=== PATIENT | male | born 1955 | race Caucasian/White ===

== ENCOUNTER 2022-10-14 18:36 | Inpatient (IN) | payer MEDICARE, MEDICAID ==
[~2022-10-14] VITALS: Ht 177.8 cm; Wt 87.5 kg
[2022-10-14] MEDS ORDERED: PANTOPRAZOLE SODIUM 40 MG/VIAL IVP ONE (19:00)
[2022-10-14] MEDS ORDERED: IOHEXOL 350 MG/ML 100 ML VIAL ONE (19:10)
[2022-10-14] MEDS ORDERED: SODIUM CHLORIDE 0.9% 100 ML ONE (19:10)
[2022-10-14] MEDS ORDERED: MAG HYDROX/AL HYDROX/SIMETH 30 ML SUSP UDCUP PO ONE (19:15)
[2022-10-14] MEDS ORDERED: FAMOTIDINE 20 MG/2 ML VIAL IVP ONE (19:15)
[2022-10-14] MEDS ORDERED: PANTOPRAZOLE SODIUM 80 MG in SODIUM CHLORIDE 0.9% 100 ML IV SCH (19:15)
[2022-10-14 19:16] LABS: GLUCOMETER DEV NAME(LOC) ER.6; GLUCOSE,POINT OF CARE 91 MG/DL (70-110)
[2022-10-14 19:43] LABS: BASOPHILS % (AUTO) 0.6 % (0.0-2.0); EOSINOPHILS % (AUTO) 3.6 % (1.0-6.0); HEMATOCRIT 37.4 % (41-53); HEMOGLOBIN 12.7 g/dL (13.5-17.5); LYMPHOCYTES # (AUTO) 1.8 K/uL (1.0-4.8); LYMPHOCYTES % (AUTO) 25.8 % (22.0-44.0); MEAN CORPUSCULAR HEMOGLOBIN 31.8 pg (26.0-34.0); MEAN CORPUSCULAR HGB CONC 33.8 G/dL (31.0-37.0); MEAN CORPUSCULAR VOLUME 94 fL (80-100); MONOCYTES # (AUTO) 0.5 K/uL (0.1-1.0); MONOCYTES % (AUTO) 7.2 % (2.0-9.0); NEUTROPHILS # (AUTO) 4.4 K/uL (1.8-7.7); NEUTROPHILS % (AUTO) 62.8 % (40.0-70.0); PLATELET COUNT (AUTO) 281 K/uL (150-450); RED BLOOD CELL COUNT(AUTO) 3.98 MIL/uL (4.50-5.90); RED CELL DISTRIBUTION WIDTH 15.4 % (11.5-14.5); WHITE BLOOD COUNT (AUTO) 6.9 K/uL (4.5-11.0)
[2022-10-14 19:56] LABS: PROTHROMBIN TIME 10.3 SEC (9.4-11.6)
[2022-10-14 19:57] LABS: ALCOHOL, BLOOD (SERUM) < 3 mg/dL (0-10); B-TYPE NATRIURETIC PEPTIDE 303 pg/mL (0-100)
[2022-10-14 20:02] LABS: ANION GAP 8 mmol/L (8-16); CALCIUM, TOTAL 8.5 mg/dL (8.8-10.5); CARBON DIOXIDE 28 mmol/L (22-29); CHLORIDE 104 mmol/L (98-107); CREATININE 1.11 mg/dL (0.60-1.30); GLOMERULAR FILTR. RATE CALC > 60 mL/min (>60); GLUCOSE,RANDOM 82 mg/dL (70-110); POTASSIUM 4.5 mmol/L (3.5-5.1); SODIUM SERUM 139 mmol/L (136-145); UREA NITROGEN, BLOOD 27 mg/dL (7-18)
[2022-10-14 20:08] LABS: ALANINE AMINOTRANSFERASE 18 U/L (12-78); ALBUMIN 3.1 g/dL (3.4-5.0); ALKALINE PHOSPHATASE 114 U/L (46-116); ASPARTATE AMINOTRANSFERASE 22 U/L (15-37); BILIRUBIN,TOTAL 0.5 mg/dL (0.1-1.0); CREATINE KINASE, TOTAL ONLY 70 U/L (39-308); TOTAL PROTEIN, SERUM 5.8 g/dL (6.4-8.2)
[2022-10-14 20:09] LABS: TROPONIN I-HIGH SENSITIVITY 13 ng/L (<76)
[2022-10-14] MEDS ORDERED: GABA-1201 PO (20:58)
[2022-10-14] MEDS: RINGERS SOLUTION,LACTATED 1,000 ML IV SCH (22:19)
[2022-10-14] MEDS ORDERED: ACETAMINOPHEN 325 MG TABLET PO PRN (23:00)
[2022-10-14 23:29] LABS: APPEARANCE,URINE CLEAR (CLEAR); BILIRUBIN,URINE NEGATIVE (NEGATIVE); COLOR,URINE LIGHT YELLOW (YELLOW); GLUCOSE, URINE (UA) NEGATIVE (NEGATIVE); KETONES,URINE NEGATIVE (NEGATIVE); LEUKOCYTE ESTERASE ,URINE NEGATIVE (NEGATIVE); NITRATE,URINE NEGATIVE (NEGATIVE); OCCULT BLOOD,URINE NEGATIVE (NEGATIVE); PROTEIN,URINE 30-70 mg/dL (NEGATIVE)
[2022-10-14 23:35] LABS: ALCOHOL, URINE DRUG SCREEN NEGATIVE (NEGATIVE); AMPHET/METH SCREEN,URINE NEGATIVE (NEGATIVE); BARBITURATE SCREEN, URINE NEGATIVE (NEGATIVE); BENZODIAZEPINES SCREEN,URINE NEGATIVE (NEGATIVE); CANNABINOID SCREEN,URINE POSITIVE (NEGATIVE); COCAINE SCREEN,URINE NEGATIVE (NEGATIVE); METHADONE SCREEN, URINE NEGATIVE (NEGATIVE); OPIATE SCREEN,URINE NEGATIVE (NEGATIVE); PHENCYCLIDINE SCREEN,URINE NEGATIVE (NEGATIVE)
[2022-10-14 23:43] LABS: BACTERIA,URINE Rare /HPF (None Seen); FINE GRANULAR CASTS,URINE 0-2 /LPF (None Seen); RBC,URINE 0-2 /HPF (0-2); SQUAMOUS EPITHELIAL CELL,UR Few /LPF (None Seen)
[2022-10-15] MEDS: GABAPENTIN 400 MG CAPSULE PO SCH ×4 (00:05→23:25)
[2022-10-15] MEDS: LIDOCAINE 5% TRANSDERMAL PATCH TD SCH ×2 (00:06→20:54)
[2022-10-15 00:36] VITALS: BP 155/98; PULSE 62; RESP 20; TEMP 98
[2022-10-15] MEDS: PANTOPRAZOLE SODIUM 80 MG in SODIUM CHLORIDE 0.9% 100 ML IV SCH ×3 (03:12→23:25)
[2022-10-15 06:03] VITALS: BP 142/103; PULSE 63; RESP 18; TEMP 98.1
[2022-10-15 06:28] LABS: BASOPHILS % (AUTO) 0.6 % (0.0-2.0); EOSINOPHILS % (AUTO) 3.7 % (1.0-6.0); HEMATOCRIT 39.1 % (41-53); HEMOGLOBIN 13.2 g/dL (13.5-17.5); LYMPHOCYTES # (AUTO) 1.9 K/uL (1.0-4.8); LYMPHOCYTES % (AUTO) 29.8 % (22.0-44.0); MEAN CORPUSCULAR HEMOGLOBIN 31.9 pg (26.0-34.0); MEAN CORPUSCULAR HGB CONC 33.7 G/dL (31.0-37.0); MEAN CORPUSCULAR VOLUME 95 fL (80-100); MONOCYTES # (AUTO) 0.5 K/uL (0.1-1.0); MONOCYTES % (AUTO) 8.5 % (2.0-9.0); NEUTROPHILS # (AUTO) 3.6 K/uL (1.8-7.7); NEUTROPHILS % (AUTO) 57.4 % (40.0-70.0); PLATELET COUNT (AUTO) 271 K/uL (150-450); RED BLOOD CELL COUNT(AUTO) 4.13 MIL/uL (4.50-5.90); RED CELL DISTRIBUTION WIDTH 15.9 % (11.5-14.5); WHITE BLOOD COUNT (AUTO) 6.3 K/uL (4.5-11.0)
[2022-10-15 06:48] LABS: ANION GAP 7 mmol/L (8-16); CALCIUM, TOTAL 8.8 mg/dL (8.8-10.5); CARBON DIOXIDE 27 mmol/L (22-29); CHLORIDE 105 mmol/L (98-107); CREATININE 1.03 mg/dL (0.60-1.30); GLOMERULAR FILTR. RATE CALC > 60 mL/min (>60); GLUCOSE,RANDOM 84 mg/dL (70-110); LIPASE 38 U/L (16-77); POTASSIUM 4.3 mmol/L (3.5-5.1); SODIUM SERUM 139 mmol/L (136-145); UREA NITROGEN, BLOOD 22 mg/dL (7-18)
[2022-10-15] MEDS ORDERED: IOHEXOL 350 MG/ML 100 ML VIAL ONE (06:51)
[2022-10-15] MEDS ORDERED: SODIUM CHLORIDE 0.9% 100 ML ONE (06:51)
[2022-10-15 07:06] LABS: BASOPHILS % (AUTO) 0.8 % (0.0-2.0); EOSINOPHILS % (AUTO) 3.8 % (1.0-6.0); HEMATOCRIT 38.5 % (41-53); LYMPHOCYTES # (AUTO) 1.6 K/uL (1.0-4.8); LYMPHOCYTES % (AUTO) 29.6 % (22.0-44.0); MEAN CORPUSCULAR HEMOGLOBIN 31.8 pg (26.0-34.0); MEAN CORPUSCULAR HGB CONC 33.7 G/dL (31.0-37.0); MEAN CORPUSCULAR VOLUME 94 fL (80-100); MONOCYTES # (AUTO) 0.4 K/uL (0.1-1.0); MONOCYTES % (AUTO) 7.7 % (2.0-9.0); NEUTROPHILS # (AUTO) 3.2 K/uL (1.8-7.7); NEUTROPHILS % (AUTO) 58.1 % (40.0-70.0); PLATELET COUNT (AUTO) 261 K/uL (150-450); RED BLOOD CELL COUNT(AUTO) 4.08 MIL/uL (4.50-5.90); RED CELL DISTRIBUTION WIDTH 15.5 % (11.5-14.5); WHITE BLOOD COUNT (AUTO) 5.5 K/uL (4.5-11.0)
[2022-10-15 07:11] LABS: ANION GAP 7 mmol/L (8-16); CALCIUM, TOTAL 8.4 mg/dL (8.8-10.5); CARBON DIOXIDE 27 mmol/L (22-29); CHLORIDE 103 mmol/L (98-107); CREATININE 0.95 mg/dL (0.60-1.30); GLOMERULAR FILTR. RATE CALC > 60 mL/min (>60); GLUCOSE,RANDOM 86 mg/dL (70-110); POTASSIUM 4.2 mmol/L (3.5-5.1); SODIUM SERUM 137 mmol/L (136-145); UREA NITROGEN, BLOOD 21 mg/dL (7-18)
[2022-10-15 07:17] LABS: ALANINE AMINOTRANSFERASE 19 U/L (12-78); ALBUMIN 3.1 g/dL (3.4-5.0); ALKALINE PHOSPHATASE 111 U/L (46-116); ASPARTATE AMINOTRANSFERASE 23 U/L (15-37); BILIRUBIN,TOTAL 0.6 mg/dL (0.1-1.0)
[2022-10-15 07:22] LABS: TROPONIN I-HIGH SENSITIVITY 13 ng/L (<76)
[2022-10-15 07:25] LABS: PROTHROMBIN TIME 10.5 SEC (9.4-11.6)
[2022-10-15 08:30] LABS: CHOL/HDL RATIO 2.7 (4.2-7.3); CHOLESTEROL 176 mg/dL (131-200); HDL CHOLESTEROL 66 mg/dL (40-60); HEMOGLOBIN A1C 5.3 % (3.8-5.6); LDL CHOL (CALC.) 97 mg/dL (0-130); TRIGLYCERIDES 65 mg/dL (15-150)
[2022-10-15] MEDS ORDERED: -LIDODERM PATCH NOTE- MISC SCH (09:00)
[2022-10-15 10:57] VITALS: BP 162/103; PULSE 64; RESP 18; TEMP 98
[2022-10-15] MEDS ORDERED: HydrALAZINE HCL 20 MG/ML VIAL IVP PRN (11:15)
[2022-10-15] MEDS ORDERED: HYDROmorphone HCL 2 MG/ML SYRINGE IVP PRN (11:30)
[2022-10-15] MEDS ORDERED: DEXTROSE 5%-0.45% SODIUM CHL 1,000 ML IV SCH (11:30)
[2022-10-15] MEDS ORDERED: SODIUM CHLORIDE 0.9% 1,000 ML ONE (11:58)
[2022-10-15] MEDS ORDERED: LIDOCAINE/PF 2% 5 ML VIAL IM ONE (12:00)
[2022-10-15] MEDS ORDERED: PROPOFOL 1% 20 ML VIAL IVP ONE (12:00)
[2022-10-15 12:26] LABS: GLUCOMETER DEV NAME(LOC) 5N.2C; GLUCOSE,POINT OF CARE 96 MG/DL (70-110)
[2022-10-15] MEDS: RINGERS SOLUTION,LACTATED 1,000 ML IV SCH (15:05)
[2022-10-15 15:09] VITALS: BP 164/98; PULSE 66; RESP 18; TEMP 97.8
[2022-10-15 17:20] LABS: BASOPHILS % (AUTO) 0.7 % (0.0-2.0); EOSINOPHILS % (AUTO) 3.5 % (1.0-6.0); HEMATOCRIT 38.6 % (41-53); HEMOGLOBIN 12.8 g/dL (13.5-17.5); LYMPHOCYTES # (AUTO) 1.3 K/uL (1.0-4.8); LYMPHOCYTES % (AUTO) 24.3 % (22.0-44.0); MEAN CORPUSCULAR HEMOGLOBIN 31.4 pg (26.0-34.0); MEAN CORPUSCULAR HGB CONC 33.1 G/dL (31.0-37.0); MEAN CORPUSCULAR VOLUME 95 fL (80-100); MONOCYTES # (AUTO) 0.4 K/uL (0.1-1.0); MONOCYTES % (AUTO) 6.6 % (2.0-9.0); NEUTROPHILS # (AUTO) 3.6 K/uL (1.8-7.7); NEUTROPHILS % (AUTO) 64.9 % (40.0-70.0); PLATELET COUNT (AUTO) 255 K/uL (150-450); RED BLOOD CELL COUNT(AUTO) 4.06 MIL/uL (4.50-5.90); RED CELL DISTRIBUTION WIDTH 15.4 % (11.5-14.5); WHITE BLOOD COUNT (AUTO) 5.5 K/uL (4.5-11.0)
[2022-10-15 20:11] VITALS: BP 108/68; PULSE 62; RESP 18; TEMP 98.2
[2022-10-15 20:18] LABS: EOSINOPHILS % (AUTO) 2.8 % (1.0-6.0); HEMATOCRIT 35.5 % (41-53); HEMOGLOBIN 11.9 g/dL (13.5-17.5); LYMPHOCYTES # (AUTO) 1.3 K/uL (1.0-4.8); LYMPHOCYTES % (AUTO) 24.7 % (22.0-44.0); MEAN CORPUSCULAR HEMOGLOBIN 31.7 pg (26.0-34.0); MEAN CORPUSCULAR HGB CONC 33.5 G/dL (31.0-37.0); MEAN CORPUSCULAR VOLUME 95 fL (80-100); MONOCYTES # (AUTO) 0.4 K/uL (0.1-1.0); MONOCYTES % (AUTO) 7.7 % (2.0-9.0); NEUTROPHILS # (AUTO) 3.5 K/uL (1.8-7.7); NEUTROPHILS % (AUTO) 63.8 % (40.0-70.0); PLATELET COUNT (AUTO) 245 K/uL (150-450); RED BLOOD CELL COUNT(AUTO) 3.75 MIL/uL (4.50-5.90); RED CELL DISTRIBUTION WIDTH 15.3 % (11.5-14.5); WHITE BLOOD COUNT (AUTO) 5.4 K/uL (4.5-11.0)
[2022-10-15] MEDS ORDERED: LIDOCAINE 5% TRANSDERMAL PATCH TD ONE (22:00)
[2022-10-16] MEDS: RINGERS SOLUTION,LACTATED 1,000 ML IV SCH (00:11)
[2022-10-16 00:13] VITALS: BP 145/76; PULSE 61; RESP 19; TEMP 98.1
[2022-10-16 04:44] VITALS: BP 154/90; PULSE 63; RESP 19; TEMP 97.8
[2022-10-16 07:10] LABS: BASOPHILS % (AUTO) 0.9 % (0.0-2.0); EOSINOPHILS % (AUTO) 3.4 % (1.0-6.0); HEMOGLOBIN 12.8 g/dL (13.5-17.5); LYMPHOCYTES # (AUTO) 1.7 K/uL (1.0-4.8); LYMPHOCYTES % (AUTO) 24.2 % (22.0-44.0); MEAN CORPUSCULAR HEMOGLOBIN 31.1 pg (26.0-34.0); MEAN CORPUSCULAR HGB CONC 32.9 G/dL (31.0-37.0); MEAN CORPUSCULAR VOLUME 95 fL (80-100); MONOCYTES # (AUTO) 0.4 K/uL (0.1-1.0); MONOCYTES % (AUTO) 6.3 % (2.0-9.0); NEUTROPHILS # (AUTO) 4.5 K/uL (1.8-7.7); NEUTROPHILS % (AUTO) 65.2 % (40.0-70.0); RED BLOOD CELL COUNT(AUTO) 4.12 MIL/uL (4.50-5.90); RED CELL DISTRIBUTION WIDTH 15.7 % (11.5-14.5); WHITE BLOOD COUNT (AUTO) 6.9 K/uL (4.5-11.0)
[2022-10-16 08:04] LABS: PLATELET COUNT (AUTO) 230 K/uL (150-450)
[2022-10-16 08:28] VITALS: BP 139/69; PULSE 61; RESP 18; TEMP 97.9
[2022-10-16] MEDS ORDERED: ATORVASTATIN CALCIUM 40 MG TABLET PO SCH (09:45)
[2022-10-16] MEDS ORDERED: ASPIRIN 81 MG CHEWABLE TABLET PO SCH (09:45)
[2022-10-16] MEDS ORDERED: LISI-893 PO (10:00)
[2022-10-16] MEDS ORDERED: CLOP75TA60 PO (10:01)
[2022-10-16] MEDS ORDERED: ASPI-1450 PO (10:01)
[2022-10-16] MEDS ORDERED: FOLI-130 PO (10:02)
[2022-10-16] MEDS ORDERED: FERR-82 PO (10:02)
[2022-10-16] MEDS ORDERED: LEVE500T20 PO (10:03)
== END 2022-10-16 10:20 | disposition home or self-care (01) | DRG 379 ==
LOC: EMS 18:37 → 5S 22:35 → UNDOADMIN 22:35 → 5S 23:10
PROVIDERS: ADMIT Internal Medicine; ATTEND Internal Medicine
PROC: 0DB78ZX Excision of Stomach, Pylorus, Via Natural or Artificial Opening Endoscopic, Diagnostic (ICD-10-PCS; 2022-10-15)
PROC: 0DB68ZX Excision of Stomach, Via Natural or Artificial Opening Endoscopic, Diagnostic (ICD-10-PCS; 2022-10-15)
PROC: 0DB98ZX Excision of Duodenum, Via Natural or Artificial Opening Endoscopic, Diagnostic (ICD-10-PCS; principal; 2022-10-15 12:45)
DX: K29.71 Gastritis, unspecified, with bleeding (principal); K25.4 Chronic or unspecified gastric ulcer with hemorrhage; K28.4 Chronic or unspecified gastrojejunal ulcer with hemorrhage; K29.81 Duodenitis with bleeding; G40.909 Epilepsy, unspecified, not intractable, without status epilepticus; G89.29 Other chronic pain; Z66 Do not resuscitate; F17.210 Nicotine dependence, cigarettes, uncomplicated; M54.2 Cervicalgia; K44.9 Diaphragmatic hernia without obstruction or gangrene; R47.1 Dysarthria and anarthria; I10 Essential (primary) hypertension; Z95.0 Presence of cardiac pacemaker; Z88.5 Allergy status to narcotic agent; Z86.73 Personal history of transient ischemic attack (TIA), and cerebral infarction without residual deficits; Z88.6 Allergy status to analgesic agent; Z90.3 Acquired absence of stomach [part of]; Z98.1 Arthrodesis status; Z79.899 Other long term (current) drug therapy; Z98.84 Bariatric surgery status
CPT/HCPCS: 70496; 70498; 71045; 74177; 80048; 80053; 80061; 80307; 81001; 82271; 82550; 82962; 83036; 83690; 83735; 83880; 84484; 85025; 85610; 85730; 86850; 86900; 86901; 88305; 88312; 88313; 88342; 93005; 93306; 99285; C9113; G0480; J1170; J2704; J3490; J7030; J7050; J7120; Q9967; 36415-L1; 36415-TC; 70450; 70450-TC

== ENCOUNTER 2022-12-16 08:50 | Inpatient (IN) | payer MEDICARE, MEDICAID ==
[~2022-12-16] VITALS: Ht 177.8 cm; Wt 101.4 kg
[~2022-12-16 08:50] MED LIST: ASPI-1444 PO; ATOR-2 PO; CLOP75TA60 PO; FERR-82 PO; FOLI-130 PO; GABA-1201 PO; LEVE500T20 PO; LISI-893 PO; NITR0.4T50 SL; PANT40TA54 PO
[2022-12-16] MEDS ORDERED: FLUORESCEIN SODIUM 1 MG STRIP OS ONE (09:15)
[2022-12-16] MEDS ORDERED: PERTUSS(ACELL),DIPH,TET VAC/PF 0.5 ML SYRINGE IM. ONE (09:15)
[2022-12-16 09:26] LABS: BASOPHILS % (AUTO) 0.6 % (0.0-2.0); EOSINOPHILS % (AUTO) 0.9 % (1.0-6.0); HEMATOCRIT 43.5 % (41-53); HEMOGLOBIN 15.3 g/dL (13.5-17.5); LYMPHOCYTES # (AUTO) 0.9 K/uL (1.0-4.8); LYMPHOCYTES % (AUTO) 13.6 % (22.0-44.0); MEAN CORPUSCULAR HEMOGLOBIN 32.5 pg (26.0-34.0); MEAN CORPUSCULAR HGB CONC 35.2 G/dL (31.0-37.0); MEAN CORPUSCULAR VOLUME 92 fL (80-100); MONOCYTES # (AUTO) 0.3 K/uL (0.1-1.0); NEUTROPHILS # (AUTO) 5.1 K/uL (1.8-7.7); NEUTROPHILS % (AUTO) 79.9 % (40.0-70.0); PLATELET COUNT (AUTO) 276 K/uL (150-450); RED BLOOD CELL COUNT(AUTO) 4.71 MIL/uL (4.50-5.90); RED CELL DISTRIBUTION WIDTH 14.4 % (11.5-14.5); WHITE BLOOD COUNT (AUTO) 6.3 K/uL (4.5-11.0)
[2022-12-16 09:45] LABS: TROPONIN I-HIGH SENSITIVITY 19 ng/L (<76)
[2022-12-16] MEDS ORDERED: PROPARACAINE HCL 0.5% 15 ML OPHTHALMIC SOLUTION OS ONE (09:45)
[2022-12-16 09:48] LABS: ANION GAP 10 mmol/L (8-16); CALCIUM, TOTAL 9.4 mg/dL (8.8-10.5); CARBON DIOXIDE 27 mmol/L (22-29); CHLORIDE 100 mmol/L (98-107); CREATININE 0.96 mg/dL (0.60-1.30); GLOMERULAR FILTR. RATE CALC > 60 mL/min (>60); GLUCOSE,RANDOM 95 mg/dL (70-110); POTASSIUM 3.9 mmol/L (3.5-5.1); SODIUM SERUM 137 mmol/L (136-145); UREA NITROGEN, BLOOD 18 mg/dL (7-18)
[2022-12-16 09:49] LABS: COVID AG,FIA SOURCE NASAL SWAB
[2022-12-16 09:55] LABS: ALANINE AMINOTRANSFERASE 22 U/L (12-78); ALBUMIN 3.4 g/dL (3.4-5.0); ALKALINE PHOSPHATASE 128 U/L (46-116); ASPARTATE AMINOTRANSFERASE 18 U/L (15-37); BILIRUBIN,TOTAL 0.9 mg/dL (0.1-1.0); TOTAL PROTEIN, SERUM 7.5 g/dL (6.4-8.2)
[2022-12-16 10:03] LABS: ALCOHOL, BLOOD (SERUM) < 3 mg/dL (0-10)
[2022-12-16] MEDS ORDERED: LABETALOL HCL 5 MG/ML 20 ML VIAL IVP ONE (10:15)
[2022-12-16 10:16] LABS: SARS-COV2 (COVID) ANTIGEN,FIA Negative (Negative)
[2022-12-16] MEDS ORDERED: MAGNESIUM SULFATE 1 GM in DEXTROSE 5%-WATER 50 ML IV ONE (10:45)
[2022-12-16 11:36] LABS: TROPONIN I-HIGH SENSITIVITY 17 ng/L (<76)
[2022-12-16 12:03] LABS: APPEARANCE,URINE CLEAR (CLEAR); BILIRUBIN,URINE NEGATIVE (NEGATIVE); COLOR,URINE YELLOW (YELLOW); GLUCOSE, URINE (UA) NEGATIVE (NEGATIVE); KETONES,URINE 40-60 mg/dL (NEGATIVE); LEUKOCYTE ESTERASE ,URINE NEGATIVE (NEGATIVE); NITRATE,URINE NEGATIVE (NEGATIVE); OCCULT BLOOD,URINE NEGATIVE (NEGATIVE); PROTEIN,URINE 100-200,SEE CONFIRM mg/dL (NEGATIVE); SPECIFIC GRAVITIY, URINE 1.023 (1.003-1.030)
[2022-12-16 12:09] LABS: SULFOSALICYLIC ACID,URINE 2+ (Negative)
[2022-12-16 12:21] LABS: BACTERIA,URINE None Seen /HPF (None Seen); RBC,URINE None Seen /HPF (0-2); SQUAMOUS EPITHELIAL CELL,UR Few /LPF (None Seen); WBC,URINE None Seen /HPF (0-5)
[2022-12-16] MEDS: AmLODIPine BESYLATE 10 MG TABLET PO SCH (15:21)
[2022-12-16] MEDS: LORazepam 2 MG TABLET PO PRN (15:21)
[2022-12-16 15:45] VITALS: BP 184/101; PULSE 62; RESP 18; TEMP 97.8; O2SAT 96
[2022-12-16] MEDS ORDERED: PNEUMOCOCCAL VACCINE POLYVALENT 0.5 ML SYRINGE [PPSV23] IM. ONE (15:45)
[2022-12-16] MEDS ORDERED: INFLUENZA VIRUS VACCINE QVS 2023-24 (6MO+)/PF 60 MCG/0.5 ML SYRINGE IM. ONE (15:45)
[2022-12-16 16:39] VITALS: BP 142/66; PULSE 61; RESP 18; TEMP 98; O2SAT 97
[2022-12-16 20:28] VITALS: BP 158/80; PULSE 62; RESP 18; TEMP 97.9; O2SAT 95
[2022-12-16 21:21] LABS: ALCOHOL, URINE DRUG SCREEN NEGATIVE (NEGATIVE); AMPHET/METH SCREEN,URINE NEGATIVE (NEGATIVE); BARBITURATE SCREEN, URINE NEGATIVE (NEGATIVE); BENZODIAZEPINES SCREEN,URINE NEGATIVE (NEGATIVE); CANNABINOID SCREEN,URINE POSITIVE (NEGATIVE); COCAINE SCREEN,URINE NEGATIVE (NEGATIVE); METHADONE SCREEN, URINE NEGATIVE (NEGATIVE); OPIATE SCREEN,URINE NEGATIVE (NEGATIVE); PHENCYCLIDINE SCREEN,URINE NEGATIVE (NEGATIVE)
[2022-12-17] MEDS: FERROUS SULFATE 325 MG EC TABLET PO SCH (06:52)
[2022-12-17] MEDS: LISINOPRIL 10 MG TABLET PO SCH (09:13)
[2022-12-17] MEDS: GABAPENTIN 400 MG CAPSULE PO SCH ×4 (09:14→23:58)
[2022-12-17] MEDS: PANTOPRAZOLE SODIUM 40 MG DR TABLET PO SCH ×2 (09:14→16:13)
[2022-12-17] MEDS: FOLIC ACID 1 MG TABLET PO SCH (09:14)
[2022-12-17] MEDS: ATORVASTATIN CALCIUM 40 MG TABLET PO SCH (09:14)
[2022-12-17] MEDS: LevETIRAcetam 500 MG TABLET PO SCH ×2 (09:14→16:13)
[2022-12-17] MEDS: ASPIRIN 81 MG CHEWABLE TABLET PO SCH (09:14)
[2022-12-17] MEDS: CLOPIDOGREL BISULFATE 75 MG TABLET PO SCH (09:14)
[2022-12-17] MEDS: AmLODIPine BESYLATE 10 MG TABLET PO SCH (09:20)
[2022-12-17 10:38] VITALS: BP 154/88; PULSE 61; RESP 17; TEMP 97.5; O2SAT 95
[2022-12-17] MEDS: SERTRALINE HCL 50 MG TABLET PO SCH (13:01)
[2022-12-17] MEDS ORDERED: GuaiFENesin/D-METHORPHAN [SUGAR-FREE] 200-20MG/10 ML SYRUP UDCUP PO PRN (15:15)
[2022-12-17] MEDS ORDERED: ONDANSETRON HCL 4 MG TABLET PO PRN (15:15)
[2022-12-17] MEDS ORDERED: PETROLATUM,WHITE 28 GM JELLY TP PRN (15:15)
[2022-12-17] MEDS ORDERED: MAGNESIUM HYDROXIDE SUSPENSION 30 ML UDCUP PO PRN (15:15)
[2022-12-17] MEDS ORDERED: LOPERAMIDE HCL 2 MG CAPSULE PO PRN (15:15)
[2022-12-17] MEDS ORDERED: ALBUTEROL SULFATE HFA 90 MCG/PUFF 8 GM INHALER IH PRN (15:15)
[2022-12-17] MEDS ORDERED: CloNIDine HCL 0.1 MG TABLET PO PRN (15:15)
[2022-12-17] MEDS ORDERED: DOCUSATE SODIUM 100 MG CAPSULE PO PRN (15:15)
[2022-12-17 17:47] VITALS: BP 142/78; PULSE 74; RESP 17; TEMP 98.7; O2SAT 96
[2022-12-17] MEDS: IBUPROFEN 400 MG TABLET PO PRN (17:47)
[2022-12-17 23:10] VITALS: RESP 18
[2022-12-18] MEDS: FERROUS SULFATE 325 MG EC TABLET PO SCH (06:55)
[2022-12-18 07:25] LABS: BASOPHILS % (AUTO) 0.9 % (0.0-2.0); EOSINOPHILS % (AUTO) 1.8 % (1.0-6.0); HEMOGLOBIN 15.3 g/dL (13.5-17.5); LYMPHOCYTES # (AUTO) 1.2 K/uL (1.0-4.8); MEAN CORPUSCULAR HGB CONC 34.8 G/dL (31.0-37.0); MEAN CORPUSCULAR VOLUME 92 fL (80-100); MONOCYTES # (AUTO) 0.5 K/uL (0.1-1.0); MONOCYTES % (AUTO) 7.2 % (2.0-9.0); NEUTROPHILS # (AUTO) 4.6 K/uL (1.8-7.7); NEUTROPHILS % (AUTO) 72.1 % (40.0-70.0); PLATELET COUNT (AUTO) 288 K/uL (150-450); RED BLOOD CELL COUNT(AUTO) 4.79 MIL/uL (4.50-5.90); RED CELL DISTRIBUTION WIDTH 14.4 % (11.5-14.5); WHITE BLOOD COUNT (AUTO) 6.4 K/uL (4.5-11.0)
[2022-12-18 07:39] LABS: HEMOGLOBIN A1C 5.1 % (3.8-5.6)
[2022-12-18 08:02] LABS: ALANINE AMINOTRANSFERASE 18 U/L (12-78); ALBUMIN 3.1 g/dL (3.4-5.0); ALKALINE PHOSPHATASE 112 U/L (46-116); ANION GAP 11 mmol/L (8-16); ASPARTATE AMINOTRANSFERASE 14 U/L (15-37); BILIRUBIN,TOTAL 0.7 mg/dL (0.1-1.0); CALCIUM, TOTAL 8.7 mg/dL (8.8-10.5); CARBON DIOXIDE 24 mmol/L (22-29); CHLORIDE 104 mmol/L (98-107); CHOL/HDL RATIO 4.3 (4.2-7.3); CHOLESTEROL 227 mg/dL (131-200); CREATININE 1.13 mg/dL (0.60-1.30); GLOMERULAR FILTR. RATE CALC > 60 mL/min (>60); GLUCOSE,RANDOM 92 mg/dL (70-110); HDL CHOLESTEROL 53 mg/dL (40-60); LDL CHOL (CALC.) 158 mg/dL (0-130); POTASSIUM 3.7 mmol/L (3.5-5.1); SODIUM SERUM 139 mmol/L (136-145); TRIGLYCERIDES 79 mg/dL (15-150); UREA NITROGEN, BLOOD 23 mg/dL (7-18)
[2022-12-18 08:25] LABS: THYROID STIMULATING HORMONE 0.56 uIU/mL (0.36-3.74)
[2022-12-18] MEDS: LISINOPRIL 10 MG TABLET PO SCH (09:00)
[2022-12-18] MEDS: LevETIRAcetam 500 MG TABLET PO SCH ×2 (09:18→16:14)
[2022-12-18] MEDS: CLOPIDOGREL BISULFATE 75 MG TABLET PO SCH (09:18)
[2022-12-18] MEDS: PANTOPRAZOLE SODIUM 40 MG DR TABLET PO SCH ×2 (09:19→16:14)
[2022-12-18] MEDS: GABAPENTIN 400 MG CAPSULE PO SCH ×2 (09:19→16:14)
[2022-12-18] MEDS: ASPIRIN 81 MG CHEWABLE TABLET PO SCH (09:19)
[2022-12-18] MEDS: FOLIC ACID 1 MG TABLET PO SCH (09:19)
[2022-12-18] MEDS: SERTRALINE HCL 50 MG TABLET PO SCH (09:19)
[2022-12-18] MEDS: ATORVASTATIN CALCIUM 40 MG TABLET PO SCH (09:19)
[2022-12-18] MEDS: AmLODIPine BESYLATE 10 MG TABLET PO SCH (09:19)
[2022-12-18 09:20] VITALS: BP 101/60; PULSE 60; TEMP 97.9
[2022-12-18 09:57] VITALS: BP 136/74; PULSE 60; RESP 18; TEMP 97.9; O2SAT 98
[2022-12-18] MEDS: IBUPROFEN 400 MG TABLET PO PRN ×2 (09:57→17:59)
[2022-12-18 11:28] VITALS: BP 129/74; PULSE 65; RESP 18; TEMP 97.6; O2SAT 97
[2022-12-18] MEDS: ACETAMINOPHEN 325 MG TABLET PO PRN (11:28)
[2022-12-18] MEDS: LORazepam 2 MG TABLET PO PRN (17:56)
[2022-12-18 17:59] VITALS: BP 136/78; PULSE 68; RESP 18; TEMP 97.5; O2SAT 98
[2022-12-18 21:00] VITALS: RESP 18
[2022-12-18] MEDS: BENZOCAINE 10% 7 GM GEL TP PRN (21:01)
[2022-12-19] VITALS (7 sets, daily range): BP systolic 125–148; BP diastolic 63–82; PULSE 76–84; RESP 17–18; TEMP 97.5–98; O2SAT 97–98
[2022-12-19] MEDS: IBUPROFEN 400 MG TABLET PO PRN ×2 (02:36→17:26)
[2022-12-19] MEDS: LORazepam 2 MG TABLET PO PRN ×2 (02:36→12:54)
[2022-12-19] MEDS: FERROUS SULFATE 325 MG EC TABLET PO SCH (07:07)
[2022-12-19] MEDS: GABAPENTIN 400 MG CAPSULE PO SCH ×4 (08:00→23:37)
[2022-12-19] MEDS: AmLODIPine BESYLATE 10 MG TABLET PO SCH (09:00)
[2022-12-19] MEDS: ATORVASTATIN CALCIUM 40 MG TABLET PO SCH (09:00)
[2022-12-19] MEDS: PANTOPRAZOLE SODIUM 40 MG DR TABLET PO SCH ×2 (09:00→16:02)
[2022-12-19] MEDS: FOLIC ACID 1 MG TABLET PO SCH (09:00)
[2022-12-19] MEDS: CLOPIDOGREL BISULFATE 75 MG TABLET PO SCH (09:00)
[2022-12-19] MEDS: SERTRALINE HCL 50 MG TABLET PO SCH (09:00)
[2022-12-19] MEDS: LISINOPRIL 10 MG TABLET PO SCH (09:00)
[2022-12-19] MEDS: ASPIRIN 81 MG CHEWABLE TABLET PO SCH (09:00)
[2022-12-19] MEDS: LevETIRAcetam 500 MG TABLET PO SCH ×2 (09:00→16:02)
[2022-12-19] MEDS: BENZOCAINE 10% 7 GM GEL TP PRN (12:36)
[2022-12-20] MEDS: FERROUS SULFATE 325 MG EC TABLET PO SCH ×2 (06:43→18:14)
[2022-12-20] MEDS: PANTOPRAZOLE SODIUM 40 MG DR TABLET PO SCH ×3 (09:03→17:09)
[2022-12-20] MEDS: CLOPIDOGREL BISULFATE 75 MG TABLET PO SCH (09:04)
[2022-12-20] MEDS: FOLIC ACID 1 MG TABLET PO SCH (09:04)
[2022-12-20] MEDS: LevETIRAcetam 500 MG TABLET PO SCH ×3 (09:04→17:09)
[2022-12-20] MEDS: ATORVASTATIN CALCIUM 40 MG TABLET PO SCH (09:04)
[2022-12-20] MEDS: LISINOPRIL 10 MG TABLET PO SCH (09:05)
[2022-12-20] MEDS: AmLODIPine BESYLATE 10 MG TABLET PO SCH (09:05)
[2022-12-20] MEDS: SERTRALINE HCL 50 MG TABLET PO SCH (09:05)
[2022-12-20] MEDS: GABAPENTIN 400 MG CAPSULE PO SCH ×3 (09:08→16:03)
[2022-12-20] MEDS: ASPIRIN 81 MG CHEWABLE TABLET PO SCH (09:08)
[2022-12-20] MEDS: LORazepam 2 MG TABLET PO PRN ×2 (09:29→22:55)
[2022-12-20 09:41] VITALS: BP 156/87; PULSE 60; RESP 18; TEMP 98; O2SAT 97
[2022-12-20] MEDS: IBUPROFEN 400 MG TABLET PO PRN (12:38)
[2022-12-20 12:39] VITALS: BP 156/87; PULSE 60; RESP 18; TEMP 98
[2022-12-20 13:39] VITALS: BP 142/73; PULSE 79; RESP 18; TEMP 98.2
[2022-12-20 20:52] VITALS: RESP 18
[2022-12-21] MEDS: GABAPENTIN 400 MG CAPSULE PO SCH ×3 (08:11→16:09)
[2022-12-21 08:40] VITALS: BP 151/84; PULSE 100; RESP 18; TEMP 97.8
[2022-12-21] MEDS: LISINOPRIL 10 MG TABLET PO SCH (08:47)
[2022-12-21] MEDS: AmLODIPine BESYLATE 10 MG TABLET PO SCH (08:48)
[2022-12-21] MEDS: PANTOPRAZOLE SODIUM 40 MG DR TABLET PO SCH ×2 (08:48→16:15)
[2022-12-21] MEDS: ATORVASTATIN CALCIUM 40 MG TABLET PO SCH (08:48)
[2022-12-21] MEDS: SERTRALINE HCL 50 MG TABLET PO SCH (08:48)
[2022-12-21] MEDS: LevETIRAcetam 500 MG TABLET PO SCH ×2 (08:48→17:00)
[2022-12-21] MEDS: FOLIC ACID 1 MG TABLET PO SCH (08:48)
[2022-12-21] MEDS: ASPIRIN 81 MG CHEWABLE TABLET PO SCH (08:48)
[2022-12-21] MEDS: CLOPIDOGREL BISULFATE 75 MG TABLET PO SCH (08:51)
[2022-12-21] MEDS: IBUPROFEN 400 MG TABLET PO PRN (11:13)
[2022-12-21 11:15] VITALS: BP 161/91; PULSE 101; RESP 19; TEMP 97.6; O2SAT 96
[2022-12-21] MEDS: LORazepam 2 MG TABLET PO PRN ×2 (14:29→22:49)
[2022-12-21 15:05] VITALS: RESP 18
[2022-12-21] MEDS: TraMADol HCL 50 MG TABLET PO PRN (15:06)
[2022-12-21 16:06] VITALS: RESP 18
[2022-12-21] MEDS: MAG HYDROX/ALUMINUM HYD/SIMETH ES 30 ML SUSPENSION UDCUP PO PRN (16:55)
[2022-12-21 20:20] LABS: TROPONIN I-HIGH SENSITIVITY 31 ng/L (<76)
[2022-12-21 20:24] LABS: MAGNESIUM 1.6 mg/dL (1.80-2.40)
[2022-12-21] MEDS: ZOLPIDEM TARTRATE 10 MG TABLET PO PRN ×2 (21:22)
[2022-12-21 21:25] VITALS: BP 96/60; PULSE 63; RESP 17; TEMP 97.6; O2SAT 95
[2022-12-21] MEDS ORDERED: MAGNESIUM OXIDE 400 MG TABLET PO ONE (21:30)
[2022-12-22] MEDS: FERROUS SULFATE 325 MG EC TABLET PO SCH (06:49)
[2022-12-22] MEDS: ATORVASTATIN CALCIUM 40 MG TABLET PO SCH ×2 (08:30→09:00)
[2022-12-22] MEDS: LevETIRAcetam 500 MG TABLET PO SCH ×4 (08:30→16:27)
[2022-12-22] MEDS: GABAPENTIN 400 MG CAPSULE PO SCH ×4 (08:30→23:37)
[2022-12-22] MEDS: LISINOPRIL 10 MG TABLET PO SCH ×2 (08:31→09:00)
[2022-12-22] MEDS: ASPIRIN 81 MG CHEWABLE TABLET PO SCH ×2 (08:33→09:00)
[2022-12-22] MEDS: CLOPIDOGREL BISULFATE 75 MG TABLET PO SCH ×2 (08:33→09:00)
[2022-12-22] MEDS: PANTOPRAZOLE SODIUM 40 MG DR TABLET PO SCH ×3 (08:33→16:19)
[2022-12-22] MEDS: AmLODIPine BESYLATE 10 MG TABLET PO SCH ×2 (08:33→09:00)
[2022-12-22] MEDS: SERTRALINE HCL 50 MG TABLET PO SCH ×2 (08:34→09:00)
[2022-12-22] MEDS: FOLIC ACID 1 MG TABLET PO SCH ×2 (08:34→09:00)
[2022-12-22 09:00] VITALS: BP 110/67; PULSE 60; RESP 18; TEMP 97.9; O2SAT 97
[2022-12-22] MEDS: LORazepam 2 MG TABLET PO PRN (16:21)
[2022-12-22] MEDS: QUEtiapine FUMARATE 100 MG TABLET PO PRN (18:31)
[2022-12-22 20:29] VITALS: RESP 18
[2022-12-22] MEDS: ZOLPIDEM TARTRATE 10 MG TABLET PO PRN (23:37)
[2022-12-23] MEDS: FERROUS SULFATE 325 MG EC TABLET PO SCH (07:02)
[2022-12-23] MEDS: GABAPENTIN 400 MG CAPSULE PO SCH ×3 (08:38→23:30)
[2022-12-23] MEDS: AmLODIPine BESYLATE 10 MG TABLET PO SCH ×2 (08:38→09:29)
[2022-12-23] MEDS: FOLIC ACID 1 MG TABLET PO SCH ×2 (08:38→09:00)
[2022-12-23] MEDS: SERTRALINE HCL 50 MG TABLET PO SCH ×2 (08:42→09:00)
[2022-12-23] MEDS: CLOPIDOGREL BISULFATE 75 MG TABLET PO SCH ×2 (08:43→09:29)
[2022-12-23] MEDS: LISINOPRIL 10 MG TABLET PO SCH ×2 (08:43→09:29)
[2022-12-23] MEDS: LevETIRAcetam 500 MG TABLET PO SCH ×3 (08:43→16:17)
[2022-12-23] MEDS: ASPIRIN 81 MG CHEWABLE TABLET PO SCH ×2 (08:43→09:00)
[2022-12-23] MEDS: ATORVASTATIN CALCIUM 40 MG TABLET PO SCH ×2 (08:43→09:00)
[2022-12-23] MEDS: PANTOPRAZOLE SODIUM 40 MG DR TABLET PO SCH ×3 (08:43→16:17)
[2022-12-23 10:10] VITALS: BP 131/70; PULSE 68; RESP 18; TEMP 97.8; O2SAT 96
[2022-12-23] MEDS: TraMADol HCL 50 MG TABLET PO PRN (11:35)
[2022-12-23] MEDS: LORazepam 2 MG TABLET PO PRN (16:50)
[2022-12-23] MEDS: NICOTINE 14 MG/24 HOUR PATCH TD PRN (17:13)
[2022-12-23 18:45] LABS: MAGNESIUM 1.7 mg/dL (1.80-2.40); PHOSPHORUS 3.2 mg/dL (2.5-4.9)
[2022-12-23] MEDS: QUEtiapine FUMARATE 100 MG TABLET PO PRN (19:50)
[2022-12-23 20:57] VITALS: RESP 18
[2022-12-23] MEDS: ZOLPIDEM TARTRATE 10 MG TABLET PO PRN (23:30)
[2022-12-24] MEDS: TraMADol HCL 50 MG TABLET PO PRN (04:47)
[2022-12-24 04:48] VITALS: BP 112/64; PULSE 70; RESP 18; TEMP 102.8
[2022-12-24 05:48] VITALS: TEMP 100.6
[2022-12-24] MEDS: FERROUS SULFATE 325 MG EC TABLET PO SCH (07:05)
[2022-12-24 08:02] LABS: COVID AG,FIA SOURCE NASAL SWAB
[2022-12-24 08:44] LABS: SARS-COV2 (COVID) ANTIGEN,FIA Negative (Negative)
[2022-12-24] MEDS: LISINOPRIL 10 MG TABLET PO SCH (09:00)
[2022-12-24] MEDS: AmLODIPine BESYLATE 10 MG TABLET PO SCH (09:00)
[2022-12-24 10:27] LABS: BASOPHILS % (AUTO) 0.2 % (0.0-2.0); EOSINOPHILS % (AUTO) 0.4 % (1.0-6.0); HEMATOCRIT 37.7 % (41-53); HEMOGLOBIN 12.9 g/dL (13.5-17.5); LYMPHOCYTES # (AUTO) 0.6 K/uL (1.0-4.8); LYMPHOCYTES % (AUTO) 5.3 % (22.0-44.0); MEAN CORPUSCULAR HEMOGLOBIN 31.6 pg (26.0-34.0); MEAN CORPUSCULAR HGB CONC 34.2 G/dL (31.0-37.0); MEAN CORPUSCULAR VOLUME 92 fL (80-100); MONOCYTES # (AUTO) 0.6 K/uL (0.1-1.0); MONOCYTES % (AUTO) 5.4 % (2.0-9.0); NEUTROPHILS # (AUTO) 10.4 K/uL (1.8-7.7); PLATELET COUNT (AUTO) 172 K/uL (150-450); RED BLOOD CELL COUNT(AUTO) 4.09 MIL/uL (4.50-5.90); RED CELL DISTRIBUTION WIDTH 14.5 % (11.5-14.5); WHITE BLOOD COUNT (AUTO) 11.7 K/uL (4.5-11.0)
[2022-12-24 10:29] LABS: NEUTROPHILS % (AUTO) 88.7 % (40.0-70.0)
[2022-12-24 10:30] LABS: RBC MORPHOLOGY COMMENT NORMAL RBC MORPH
[2022-12-24 10:54] LABS: ALBUMIN 2.4 g/dL (3.4-5.0); BILIRUBIN,TOTAL 0.6 mg/dL (0.1-1.0); CALCIUM, TOTAL 8.4 mg/dL (8.8-10.5); CREATININE 1.27 mg/dL (0.60-1.30); POTASSIUM 4.6 mmol/L (3.5-5.1); TOTAL PROTEIN, SERUM 6.2 g/dL (6.4-8.2)
[2022-12-24] MEDS: SERTRALINE HCL 50 MG TABLET PO SCH (10:58)
[2022-12-24] MEDS: LevETIRAcetam 500 MG TABLET PO SCH ×2 (10:58→16:11)
[2022-12-24] MEDS: GABAPENTIN 400 MG CAPSULE PO SCH ×2 (10:58→16:11)
[2022-12-24] MEDS: FOLIC ACID 1 MG TABLET PO SCH (10:59)
[2022-12-24] MEDS: ATORVASTATIN CALCIUM 40 MG TABLET PO SCH (10:59)
[2022-12-24] MEDS: ASPIRIN 81 MG CHEWABLE TABLET PO SCH (10:59)
[2022-12-24] MEDS: PANTOPRAZOLE SODIUM 40 MG DR TABLET PO SCH ×2 (10:59→16:11)
[2022-12-24] MEDS: CLOPIDOGREL BISULFATE 75 MG TABLET PO SCH (10:59)
[2022-12-24 11:18] VITALS: BP 99/68; PULSE 20; RESP 17; TEMP 98.1; O2SAT 96
[2022-12-24 15:04] LABS: APPEARANCE,URINE CLEAR (CLEAR); BILIRUBIN,URINE NEGATIVE (NEGATIVE); COLOR,URINE YELLOW (YELLOW); GLUCOSE, URINE (UA) NEGATIVE (NEGATIVE); KETONES,URINE NEGATIVE (NEGATIVE); LEUKOCYTE ESTERASE ,URINE LARGE (NEGATIVE); NITRATE,URINE POSITIVE (NEGATIVE); OCCULT BLOOD,URINE NEGATIVE (NEGATIVE); PH,URINE 5.5 (5.0-8.0); PH,URINE DRUG SCREEN 5.5 (5.0-8.0); PROTEIN,URINE 30-70 mg/dL (NEGATIVE); SPECIFIC GRAVITIY, URINE 1.017 (1.003-1.030); UROBILINOGEN,URINE <=1.0 mg/dL (<=1.0)
[2022-12-24 15:12] LABS: AMPHET/METH SCREEN,URINE NEGATIVE (NEGATIVE); BARBITURATE SCREEN, URINE NEGATIVE (NEGATIVE); BENZODIAZEPINES SCREEN,URINE NEGATIVE (NEGATIVE); CANNABINOID SCREEN,URINE POSITIVE (NEGATIVE); COCAINE SCREEN,URINE NEGATIVE (NEGATIVE); METHADONE SCREEN, URINE NEGATIVE (NEGATIVE); OPIATE SCREEN,URINE NEGATIVE (NEGATIVE); PHENCYCLIDINE SCREEN,URINE NEGATIVE (NEGATIVE)
[2022-12-24 15:18] LABS: ALCOHOL, URINE DRUG SCREEN NEGATIVE (NEGATIVE)
[2022-12-24 15:25] LABS: BACTERIA,URINE Moderate /HPF (None Seen); RBC,URINE None Seen /HPF (0-2); SQUAMOUS EPITHELIAL CELL,UR Few /LPF (None Seen)
[2022-12-24] MEDS: CEPHALEXIN MONOHYDRATE 500 MG CAPSULE PO SCH (16:11)
[2022-12-24] MEDS: AZITHROMYCIN 500 MG TABLET PO SCH (19:05)
[2022-12-24 21:05] VITALS: RESP 18
[2022-12-25] MEDS: GABAPENTIN 400 MG CAPSULE PO SCH ×3 (00:01→16:18)
[2022-12-25] MEDS: ZOLPIDEM TARTRATE 10 MG TABLET PO PRN (00:02)
[2022-12-25] MEDS: FERROUS SULFATE 325 MG EC TABLET PO SCH (07:03)
[2022-12-25] MEDS: SERTRALINE HCL 50 MG TABLET PO SCH (08:17)
[2022-12-25] MEDS: CLOPIDOGREL BISULFATE 75 MG TABLET PO SCH (08:17)
[2022-12-25] MEDS: LevETIRAcetam 500 MG TABLET PO SCH ×2 (08:17→18:01)
[2022-12-25] MEDS: FOLIC ACID 1 MG TABLET PO SCH (08:18)
[2022-12-25] MEDS: PANTOPRAZOLE SODIUM 40 MG DR TABLET PO SCH ×2 (08:18→18:01)
[2022-12-25] MEDS: AZITHROMYCIN 500 MG TABLET PO SCH (08:18)
[2022-12-25] MEDS: AmLODIPine BESYLATE 10 MG TABLET PO SCH (08:18)
[2022-12-25] MEDS: ASPIRIN 81 MG CHEWABLE TABLET PO SCH (08:18)
[2022-12-25] MEDS: ATORVASTATIN CALCIUM 40 MG TABLET PO SCH (08:18)
[2022-12-25] MEDS: LISINOPRIL 10 MG TABLET PO SCH (08:19)
[2022-12-25] MEDS: CEPHALEXIN MONOHYDRATE 500 MG CAPSULE PO SCH ×3 (08:24→18:00)
[2022-12-25 09:38] VITALS: BP_SYST 128; BP_SYST 150; BP_SYST 92; BP_DIAS 57; BP_DIAS 70; BP_DIAS 77; PULSE 70; PULSE 89; PULSE 99; RESP 16; RESP 18; RESP 20; TEMP 97.2; TEMP 98.6; O2SAT 98
[2022-12-25] MEDS: MAG HYDROX/ALUMINUM HYD/SIMETH ES 30 ML SUSPENSION UDCUP PO PRN (18:31)
[2022-12-25 18:53] VITALS: BP 100/64; PULSE 67; RESP 18
[2022-12-25] MEDS: TraMADol HCL 50 MG TABLET PO PRN (18:53)
[2022-12-25 19:53] VITALS: RESP 19
[2022-12-25 20:53] VITALS: BP 102/62; PULSE 63; RESP 20; TEMP 98.1; O2SAT 94
[2022-12-26] MEDS: GABAPENTIN 400 MG CAPSULE PO SCH ×4 (00:13→23:15)
[2022-12-26] MEDS: ZOLPIDEM TARTRATE 10 MG TABLET PO PRN ×2 (00:14→23:15)
[2022-12-26] MEDS: FERROUS SULFATE 325 MG EC TABLET PO SCH (06:58)
[2022-12-26 08:22] VITALS: BP 124/75; PULSE 60; RESP 19; TEMP 97.6; O2SAT 95
[2022-12-26] MEDS: PANTOPRAZOLE SODIUM 40 MG DR TABLET PO SCH ×2 (08:59→17:07)
[2022-12-26] MEDS: AZITHROMYCIN 500 MG TABLET PO SCH (08:59)
[2022-12-26] MEDS: LevETIRAcetam 500 MG TABLET PO SCH ×2 (08:59→17:07)
[2022-12-26] MEDS: LISINOPRIL 10 MG TABLET PO SCH (08:59)
[2022-12-26] MEDS: ATORVASTATIN CALCIUM 40 MG TABLET PO SCH (08:59)
[2022-12-26] MEDS: CEPHALEXIN MONOHYDRATE 500 MG CAPSULE PO SCH ×3 (08:59→17:07)
[2022-12-26] MEDS: AmLODIPine BESYLATE 10 MG TABLET PO SCH (08:59)
[2022-12-26] MEDS: FOLIC ACID 1 MG TABLET PO SCH (08:59)
[2022-12-26] MEDS: ASPIRIN 81 MG CHEWABLE TABLET PO SCH (09:00)
[2022-12-26] MEDS: CLOPIDOGREL BISULFATE 75 MG TABLET PO SCH (09:00)
[2022-12-26] MEDS: SERTRALINE HCL 50 MG TABLET PO SCH (09:02)
[2022-12-26 17:47] VITALS: BP 122/74; RESP 18; O2SAT 96
[2022-12-26] MEDS: LORazepam 2 MG TABLET PO PRN (17:47)
[2022-12-26] MEDS: IBUPROFEN 400 MG TABLET PO PRN (17:47)
[2022-12-26 18:47] VITALS: RESP 18
[2022-12-26 20:50] VITALS: RESP 16
[2022-12-27] MEDS: FERROUS SULFATE 325 MG EC TABLET PO SCH (06:36)
[2022-12-27 08:09] VITALS: BP 110/75; PULSE 70; RESP 17; TEMP 98; O2SAT 97
[2022-12-27 11:28] VITALS: BP 110/75; PULSE 70; RESP 18; TEMP 98.2
[2022-12-27] MEDS: IBUPROFEN 400 MG TABLET PO PRN (11:28)
[2022-12-27] MEDS: LevETIRAcetam 500 MG TABLET PO SCH ×2 (11:28→17:59)
[2022-12-27] MEDS: ASPIRIN 81 MG CHEWABLE TABLET PO SCH (11:29)
[2022-12-27] MEDS: AmLODIPine BESYLATE 10 MG TABLET PO SCH (11:29)
[2022-12-27] MEDS: CEPHALEXIN MONOHYDRATE 500 MG CAPSULE PO SCH ×3 (11:29→18:00)
[2022-12-27] MEDS: PANTOPRAZOLE SODIUM 40 MG DR TABLET PO SCH ×2 (11:30→17:59)
[2022-12-27] MEDS: SERTRALINE HCL 50 MG TABLET PO SCH (11:31)
[2022-12-27] MEDS: CLOPIDOGREL BISULFATE 75 MG TABLET PO SCH (11:31)
[2022-12-27] MEDS: LISINOPRIL 10 MG TABLET PO SCH (11:32)
[2022-12-27] MEDS: ATORVASTATIN CALCIUM 40 MG TABLET PO SCH (11:32)
[2022-12-27] MEDS: AZITHROMYCIN 500 MG TABLET PO SCH (11:32)
[2022-12-27] MEDS: FOLIC ACID 1 MG TABLET PO SCH (11:33)
[2022-12-27] MEDS: GABAPENTIN 400 MG CAPSULE PO SCH ×3 (11:36→23:15)
[2022-12-27 12:28] VITALS: BP 99/67; PULSE 62; RESP 18; TEMP 98
[2022-12-27] MEDS: LORazepam 2 MG TABLET PO PRN (13:23)
[2022-12-27] MEDS: NICOTINE 14 MG/24 HOUR PATCH TD PRN (14:34)
[2022-12-27 19:16] LABS: COVID AG,FIA SOURCE NASAL SWAB
[2022-12-27 19:40] LABS: SARS-COV2 (COVID) ANTIGEN,FIA Negative (Negative)
[2022-12-27 20:16] VITALS: BP 109/71; PULSE 74; RESP 18; TEMP 98.1; O2SAT 97
[2022-12-27] MEDS: ZOLPIDEM TARTRATE 10 MG TABLET PO PRN (23:15)
[2022-12-28] MEDS: FERROUS SULFATE 325 MG EC TABLET PO SCH (06:40)
[2022-12-28] MEDS: GABAPENTIN 400 MG CAPSULE PO SCH ×3 (07:58→23:53)
[2022-12-28] MEDS: SERTRALINE HCL 50 MG TABLET PO SCH (08:05)
[2022-12-28] MEDS: LevETIRAcetam 500 MG TABLET PO SCH ×2 (08:06→17:39)
[2022-12-28] MEDS: PANTOPRAZOLE SODIUM 40 MG DR TABLET PO SCH ×2 (08:06→17:39)
[2022-12-28] MEDS: LISINOPRIL 10 MG TABLET PO SCH (08:06)
[2022-12-28] MEDS: AZITHROMYCIN 500 MG TABLET PO SCH (08:06)
[2022-12-28] MEDS: ATORVASTATIN CALCIUM 40 MG TABLET PO SCH (08:06)
[2022-12-28] MEDS: CEPHALEXIN MONOHYDRATE 500 MG CAPSULE PO SCH ×3 (08:06→17:39)
[2022-12-28] MEDS: CLOPIDOGREL BISULFATE 75 MG TABLET PO SCH (08:06)
[2022-12-28] MEDS: AmLODIPine BESYLATE 10 MG TABLET PO SCH (08:06)
[2022-12-28] MEDS: ASPIRIN 81 MG CHEWABLE TABLET PO SCH (08:07)
[2022-12-28] MEDS: FOLIC ACID 1 MG TABLET PO SCH (08:07)
[2022-12-28 08:17] VITALS: BP 121/67; PULSE 62; RESP 18; TEMP 97.6; O2SAT 95
[2022-12-28 08:27] VITALS: BP 130/75; PULSE 70; RESP 17; TEMP 97.9; O2SAT 98
[2022-12-28 20:09] VITALS: RESP 18
[2022-12-28] MEDS: ZOLPIDEM TARTRATE 10 MG TABLET PO PRN (21:43)
[2022-12-29] VITALS (7 sets, daily range): BP systolic 98–117; BP diastolic 60–77; PULSE 60–62; RESP 16–18; TEMP 97.9–98.1; O2SAT 97
[2022-12-29] MEDS: FERROUS SULFATE 325 MG EC TABLET PO SCH ×2 (06:23→06:28)
[2022-12-29] MEDS: ACETAMINOPHEN 325 MG TABLET PO PRN (06:45)
[2022-12-29] MEDS: GABAPENTIN 400 MG CAPSULE PO SCH ×3 (08:02→23:54)
[2022-12-29 08:39] LABS: BASOPHILS % (AUTO) 0.7 % (0.0-2.0); HEMATOCRIT 38.5 % (41-53); HEMOGLOBIN 13.5 g/dL (13.5-17.5); LYMPHOCYTES # (AUTO) 1.4 K/uL (1.0-4.8); LYMPHOCYTES % (AUTO) 19.1 % (22.0-44.0); MEAN CORPUSCULAR HEMOGLOBIN 31.9 pg (26.0-34.0); MEAN CORPUSCULAR HGB CONC 35.1 G/dL (31.0-37.0); MEAN CORPUSCULAR VOLUME 91 fL (80-100); MONOCYTES # (AUTO) 0.5 K/uL (0.1-1.0); NEUTROPHILS # (AUTO) 5.4 K/uL (1.8-7.7); NEUTROPHILS % (AUTO) 71.2 % (40.0-70.0); PLATELET COUNT (AUTO) 319 K/uL (150-450); RED BLOOD CELL COUNT(AUTO) 4.25 MIL/uL (4.50-5.90); RED CELL DISTRIBUTION WIDTH 14.2 % (11.5-14.5); WHITE BLOOD COUNT (AUTO) 7.5 K/uL (4.5-11.0)
[2022-12-29 08:40] LABS: CALCIUM, TOTAL 9.3 mg/dL (8.8-10.5); CREATININE 1.31 mg/dL (0.60-1.30); POTASSIUM 4.6 mmol/L (3.5-5.1)
[2022-12-29] MEDS: LevETIRAcetam 500 MG TABLET PO SCH ×2 (09:22→16:26)
[2022-12-29] MEDS: CLOPIDOGREL BISULFATE 75 MG TABLET PO SCH (09:22)
[2022-12-29] MEDS: FOLIC ACID 1 MG TABLET PO SCH (09:22)
[2022-12-29] MEDS: PANTOPRAZOLE SODIUM 40 MG DR TABLET PO SCH ×2 (09:22→16:26)
[2022-12-29] MEDS: CEPHALEXIN MONOHYDRATE 500 MG CAPSULE PO SCH ×3 (09:22→16:26)
[2022-12-29] MEDS: AZITHROMYCIN 500 MG TABLET PO SCH (09:22)
[2022-12-29] MEDS: ASPIRIN 81 MG CHEWABLE TABLET PO SCH (09:22)
[2022-12-29] MEDS: ATORVASTATIN CALCIUM 40 MG TABLET PO SCH (09:23)
[2022-12-29] MEDS: SERTRALINE HCL 50 MG TABLET PO SCH (09:24)
[2022-12-29] MEDS: LISINOPRIL 10 MG TABLET PO SCH (09:33)
[2022-12-29] MEDS: AmLODIPine BESYLATE 10 MG TABLET PO SCH (09:33)
[2022-12-29] MEDS: IBUPROFEN 400 MG TABLET PO PRN (15:13)
[2022-12-29] MEDS: LORazepam 2 MG TABLET PO PRN ×2 (15:34→19:45)
[2022-12-29] MEDS: ZOLPIDEM TARTRATE 10 MG TABLET PO PRN (21:08)
[2022-12-30] MEDS: FERROUS SULFATE 325 MG EC TABLET PO SCH (06:32)
[2022-12-30] MEDS: GABAPENTIN 400 MG CAPSULE PO SCH ×2 (07:53→16:00)
[2022-12-30] MEDS: AZITHROMYCIN 500 MG TABLET PO SCH (08:08)
[2022-12-30] MEDS: PANTOPRAZOLE SODIUM 40 MG DR TABLET PO SCH ×2 (08:08→16:45)
[2022-12-30] MEDS: ASPIRIN 81 MG CHEWABLE TABLET PO SCH (08:08)
[2022-12-30 08:10] VITALS: BP 96/55; PULSE 60; RESP 18; TEMP 97.7; O2SAT 97
[2022-12-30] MEDS: SERTRALINE HCL 50 MG TABLET PO SCH (08:10)
[2022-12-30] MEDS: FOLIC ACID 1 MG TABLET PO SCH (08:11)
[2022-12-30] MEDS: LevETIRAcetam 500 MG TABLET PO SCH ×2 (08:11→16:45)
[2022-12-30] MEDS: ATORVASTATIN CALCIUM 40 MG TABLET PO SCH (08:11)
[2022-12-30] MEDS: CLOPIDOGREL BISULFATE 75 MG TABLET PO SCH (08:11)
[2022-12-30] MEDS: CEPHALEXIN MONOHYDRATE 500 MG CAPSULE PO SCH ×3 (08:11→16:44)
[2022-12-30] MEDS: LISINOPRIL 10 MG TABLET PO SCH (13:32)
[2022-12-30] MEDS: AmLODIPine BESYLATE 10 MG TABLET PO SCH (13:33)
[2022-12-30 13:37] VITALS: BP 115/63; PULSE 64; RESP 18; O2SAT 100
[2022-12-30] MEDS: LORazepam 2 MG TABLET PO PRN ×2 (13:50→19:36)
[2022-12-30] MEDS: IBUPROFEN 400 MG TABLET PO PRN (13:51)
[2022-12-30 14:50] VITALS: RESP 20; O2SAT 100
[2022-12-30 20:00] VITALS: RESP 18
[2022-12-30] MEDS: ZOLPIDEM TARTRATE 10 MG TABLET PO PRN (20:48)
[2022-12-30] MEDS: QUEtiapine FUMARATE 100 MG TABLET PO PRN (23:43)
[2022-12-31] MEDS: GABAPENTIN 400 MG CAPSULE PO SCH ×3 (00:14→19:01)
[2022-12-31] MEDS: LORazepam 2 MG TABLET PO PRN (00:38)
[2022-12-31] MEDS ORDERED: HALOPERIDOL LACTATE 5 MG/ML VIAL ONE (02:18)
[2022-12-31] MEDS ORDERED: LORazepam 2 MG/ML VIAL ONE (02:18)
[2022-12-31] MEDS ORDERED: DiphenhydrAMINE HCL 50 MG/ML VIAL ONE (02:18)
[2022-12-31] MEDS ORDERED: HALOPERIDOL LACTATE 5 MG/ML VIAL IM ONE (02:30)
[2022-12-31] MEDS ORDERED: DiphenhydrAMINE HCL 50 MG/ML VIAL IM ONE (02:30)
[2022-12-31] MEDS ORDERED: LORazepam 2 MG/ML VIAL IM ONE (02:30)
[2022-12-31] MEDS: FERROUS SULFATE 325 MG EC TABLET PO SCH ×2 (06:34→11:08)
[2022-12-31 09:00] VITALS: RESP 18; TEMP 98.4
[2022-12-31] MEDS: AZITHROMYCIN 500 MG TABLET PO SCH (11:08)
[2022-12-31] MEDS: SERTRALINE HCL 50 MG TABLET PO SCH (11:12)
[2022-12-31] MEDS: AmLODIPine BESYLATE 10 MG TABLET PO SCH (11:14)
[2022-12-31] MEDS: PANTOPRAZOLE SODIUM 40 MG DR TABLET PO SCH ×2 (11:15→19:01)
[2022-12-31] MEDS: CLOPIDOGREL BISULFATE 75 MG TABLET PO SCH (11:15)
[2022-12-31] MEDS: CEPHALEXIN MONOHYDRATE 500 MG CAPSULE PO SCH ×3 (11:15→19:01)
[2022-12-31] MEDS: LISINOPRIL 10 MG TABLET PO SCH (11:15)
[2022-12-31] MEDS: LevETIRAcetam 500 MG TABLET PO SCH ×2 (11:16→19:01)
[2022-12-31] MEDS: ASPIRIN 81 MG CHEWABLE TABLET PO SCH (11:16)
[2022-12-31] MEDS: ATORVASTATIN CALCIUM 40 MG TABLET PO SCH (11:17)
[2022-12-31] MEDS: FOLIC ACID 1 MG TABLET PO SCH (11:17)
[2022-12-31 20:38] VITALS: RESP 18
[2022-12-31] MEDS: ZOLPIDEM TARTRATE 10 MG TABLET PO PRN (22:12)
[2023-01-01] MEDS: GABAPENTIN 400 MG CAPSULE PO SCH ×3 (00:02→16:14)
[2023-01-01] MEDS: ASPIRIN 81 MG CHEWABLE TABLET PO SCH (08:06)
[2023-01-01] MEDS: PANTOPRAZOLE SODIUM 40 MG DR TABLET PO SCH ×2 (08:06→16:51)
[2023-01-01] MEDS: FOLIC ACID 1 MG TABLET PO SCH (08:06)
[2023-01-01] MEDS: LISINOPRIL 10 MG TABLET PO SCH ×2 (08:06→08:09)
[2023-01-01] MEDS: ATORVASTATIN CALCIUM 40 MG TABLET PO SCH (08:06)
[2023-01-01] MEDS: LevETIRAcetam 500 MG TABLET PO SCH ×2 (08:06→16:51)
[2023-01-01] MEDS: SERTRALINE HCL 50 MG TABLET PO SCH (08:07)
[2023-01-01] MEDS: CLOPIDOGREL BISULFATE 75 MG TABLET PO SCH (08:07)
[2023-01-01] MEDS: CEPHALEXIN MONOHYDRATE 500 MG CAPSULE PO SCH ×3 (08:07→16:51)
[2023-01-01] MEDS: AZITHROMYCIN 500 MG TABLET PO SCH (08:07)
[2023-01-01] MEDS: AmLODIPine BESYLATE 10 MG TABLET PO SCH (08:08)
[2023-01-01 08:18] VITALS: BP 90/52; PULSE 62; RESP 18; O2SAT 96
[2023-01-01] MEDS: LORazepam 2 MG TABLET PO PRN ×2 (12:59→20:10)
[2023-01-01 20:25] VITALS: RESP 20
[2023-01-01] MEDS: ZOLPIDEM TARTRATE 10 MG TABLET PO PRN (20:54)
[2023-01-02] MEDS: GABAPENTIN 400 MG CAPSULE PO SCH ×4 (00:19→23:14)
[2023-01-02] MEDS: FERROUS SULFATE 325 MG EC TABLET PO SCH (06:51)
[2023-01-02 08:22] VITALS: BP 124/68; PULSE 60; RESP 18; TEMP 97.5; O2SAT 97
[2023-01-02] MEDS: CLOPIDOGREL BISULFATE 75 MG TABLET PO SCH (09:12)
[2023-01-02] MEDS: AZITHROMYCIN 500 MG TABLET PO SCH (09:12)
[2023-01-02] MEDS: SERTRALINE HCL 50 MG TABLET PO SCH (09:13)
[2023-01-02] MEDS: AmLODIPine BESYLATE 10 MG TABLET PO SCH (09:13)
[2023-01-02] MEDS: FOLIC ACID 1 MG TABLET PO SCH (09:13)
[2023-01-02] MEDS: LISINOPRIL 10 MG TABLET PO SCH (09:14)
[2023-01-02] MEDS: CEPHALEXIN MONOHYDRATE 500 MG CAPSULE PO SCH ×3 (09:14→18:12)
[2023-01-02] MEDS: ATORVASTATIN CALCIUM 40 MG TABLET PO SCH (09:14)
[2023-01-02] MEDS: LevETIRAcetam 500 MG TABLET PO SCH ×2 (09:14→17:23)
[2023-01-02] MEDS: PANTOPRAZOLE SODIUM 40 MG DR TABLET PO SCH ×2 (09:14→17:23)
[2023-01-02] MEDS: ASPIRIN 81 MG CHEWABLE TABLET PO SCH (09:15)
[2023-01-02] MEDS: QUEtiapine FUMARATE 100 MG TABLET PO PRN (11:59)
[2023-01-02] MEDS: LORazepam 2 MG TABLET PO PRN (11:59)
[2023-01-02 20:00] VITALS: BP 102/66; PULSE 60; RESP 18; TEMP 97.3; O2SAT 97
[2023-01-02] MEDS: ZOLPIDEM TARTRATE 10 MG TABLET PO PRN (23:14)
[2023-01-02] MEDS: NICOTINE 14 MG/24 HOUR PATCH TD PRN (23:38)
[2023-01-03] MEDS: FERROUS SULFATE 325 MG EC TABLET PO SCH (06:35)
[2023-01-03] MEDS: ATORVASTATIN CALCIUM 40 MG TABLET PO SCH (07:42)
[2023-01-03] MEDS: CLOPIDOGREL BISULFATE 75 MG TABLET PO SCH (07:42)
[2023-01-03] MEDS: PANTOPRAZOLE SODIUM 40 MG DR TABLET PO SCH ×2 (07:43→17:20)
[2023-01-03] MEDS: LevETIRAcetam 500 MG TABLET PO SCH ×2 (07:43→17:21)
[2023-01-03] MEDS: AmLODIPine BESYLATE 10 MG TABLET PO SCH (07:43)
[2023-01-03] MEDS: LISINOPRIL 10 MG TABLET PO SCH (07:43)
[2023-01-03] MEDS: FOLIC ACID 1 MG TABLET PO SCH (07:43)
[2023-01-03] MEDS: SERTRALINE HCL 50 MG TABLET PO SCH (07:43)
[2023-01-03] MEDS: AZITHROMYCIN 500 MG TABLET PO SCH (07:44)
[2023-01-03] MEDS: CEPHALEXIN MONOHYDRATE 500 MG CAPSULE PO SCH ×2 (07:44→12:17)
[2023-01-03] MEDS: ASPIRIN 81 MG CHEWABLE TABLET PO SCH (07:44)
[2023-01-03] MEDS: GABAPENTIN 400 MG CAPSULE PO SCH ×3 (07:45→23:50)
[2023-01-03 08:13] VITALS: BP 94/59; PULSE 63; RESP 17; TEMP 97.7; O2SAT 97
[2023-01-03] MEDS: MAG HYDROX/ALUMINUM HYD/SIMETH ES 30 ML SUSPENSION UDCUP PO PRN (12:17)
[2023-01-03 20:40] VITALS: BP 100/63; PULSE 61; RESP 18; TEMP 97.4; O2SAT 97
[2023-01-03] MEDS: ZOLPIDEM TARTRATE 10 MG TABLET PO PRN (23:49)
[2023-01-04] MEDS: FERROUS SULFATE 325 MG EC TABLET PO SCH (06:40)
[2023-01-04 09:33] VITALS: BP 105/68; PULSE 60; RESP 19; TEMP 97.8; O2SAT 96
[2023-01-04] MEDS: GABAPENTIN 400 MG CAPSULE PO SCH ×3 (09:36→23:10)
[2023-01-04] MEDS: ATORVASTATIN CALCIUM 40 MG TABLET PO SCH (09:36)
[2023-01-04] MEDS: FOLIC ACID 1 MG TABLET PO SCH (09:36)
[2023-01-04] MEDS: SERTRALINE HCL 50 MG TABLET PO SCH (09:37)
[2023-01-04] MEDS: CLOPIDOGREL BISULFATE 75 MG TABLET PO SCH (09:37)
[2023-01-04] MEDS: LevETIRAcetam 500 MG TABLET PO SCH ×2 (09:38→16:38)
[2023-01-04] MEDS: ASPIRIN 81 MG CHEWABLE TABLET PO SCH (09:38)
[2023-01-04] MEDS: LISINOPRIL 10 MG TABLET PO SCH (09:38)
[2023-01-04] MEDS: AmLODIPine BESYLATE 10 MG TABLET PO SCH (09:38)
[2023-01-04] MEDS: PANTOPRAZOLE SODIUM 40 MG DR TABLET PO SCH ×2 (09:38→16:38)
[2023-01-04] MEDS: IBUPROFEN 400 MG TABLET PO PRN (10:20)
[2023-01-04 10:23] VITALS: BP 105/68; PULSE 60; RESP 19; TEMP 97.8; O2SAT 96
[2023-01-04] MEDS: ZOLPIDEM TARTRATE 10 MG TABLET PO PRN (22:01)
[2023-01-05] MEDS: FERROUS SULFATE 325 MG EC TABLET PO SCH (07:04)
[2023-01-05] MEDS: GABAPENTIN 400 MG CAPSULE PO SCH ×4 (08:00→23:32)
[2023-01-05] MEDS: ASPIRIN 81 MG CHEWABLE TABLET PO SCH ×2 (08:08→09:00)
[2023-01-05] MEDS: PANTOPRAZOLE SODIUM 40 MG DR TABLET PO SCH ×4 (08:09→17:00)
[2023-01-05] MEDS: AmLODIPine BESYLATE 10 MG TABLET PO SCH ×2 (08:09→09:00)
[2023-01-05] MEDS: ATORVASTATIN CALCIUM 40 MG TABLET PO SCH ×2 (08:10→09:00)
[2023-01-05] MEDS: FOLIC ACID 1 MG TABLET PO SCH ×2 (08:10→09:00)
[2023-01-05] MEDS: LevETIRAcetam 500 MG TABLET PO SCH ×4 (08:10→17:00)
[2023-01-05] MEDS: LISINOPRIL 10 MG TABLET PO SCH ×2 (08:10→09:00)
[2023-01-05] MEDS: CLOPIDOGREL BISULFATE 75 MG TABLET PO SCH ×2 (08:10→09:00)
[2023-01-05] MEDS: SERTRALINE HCL 50 MG TABLET PO SCH ×2 (08:10→09:00)
[2023-01-05 09:32] VITALS: RESP 18; TEMP 97.6
[2023-01-05 20:38] VITALS: BP 114/77; PULSE 74; RESP 18; TEMP 97.6; O2SAT 98
[2023-01-05] MEDS: ZOLPIDEM TARTRATE 10 MG TABLET PO PRN (21:04)
[2023-01-06] MEDS: FERROUS SULFATE 325 MG EC TABLET PO SCH (06:52)
[2023-01-06 08:00] VITALS: BP 136/73; PULSE 62; RESP 20; TEMP 98.8; O2SAT 96
[2023-01-06] MEDS: GABAPENTIN 400 MG CAPSULE PO SCH ×2 (08:37→15:03)
[2023-01-06] MEDS: LevETIRAcetam 500 MG TABLET PO SCH ×2 (08:37→17:49)
[2023-01-06] MEDS: PANTOPRAZOLE SODIUM 40 MG DR TABLET PO SCH ×3 (09:00→17:00)
[2023-01-06] MEDS: LISINOPRIL 10 MG TABLET PO SCH ×2 (09:00→09:31)
[2023-01-06] MEDS: SERTRALINE HCL 50 MG TABLET PO SCH ×2 (09:00→09:30)
[2023-01-06] MEDS: AmLODIPine BESYLATE 10 MG TABLET PO SCH ×2 (09:00→09:31)
[2023-01-06] MEDS: FOLIC ACID 1 MG TABLET PO SCH ×2 (09:00→09:31)
[2023-01-06] MEDS: CLOPIDOGREL BISULFATE 75 MG TABLET PO SCH ×2 (09:00→09:31)
[2023-01-06] MEDS: ATORVASTATIN CALCIUM 40 MG TABLET PO SCH ×2 (09:00→09:30)
[2023-01-06] MEDS: ASPIRIN 81 MG CHEWABLE TABLET PO SCH ×2 (09:00→09:31)
[2023-01-06 20:16] VITALS: BP 110/69; PULSE 61; RESP 19; TEMP 97.4; O2SAT 96
[2023-01-06] MEDS: ZOLPIDEM TARTRATE 10 MG TABLET PO PRN (21:05)
[2023-01-07] MEDS: GABAPENTIN 400 MG CAPSULE PO SCH ×4 (00:17→23:17)
[2023-01-07] MEDS: FERROUS SULFATE 325 MG EC TABLET PO SCH (06:45)
[2023-01-07 08:28] VITALS: BP 106/60; PULSE 60; RESP 18; TEMP 97.6; O2SAT 99
[2023-01-07] MEDS: ASPIRIN 81 MG CHEWABLE TABLET PO SCH (09:38)
[2023-01-07] MEDS: SERTRALINE HCL 50 MG TABLET PO SCH (09:38)
[2023-01-07] MEDS: LISINOPRIL 10 MG TABLET PO SCH (09:38)
[2023-01-07] MEDS: PANTOPRAZOLE SODIUM 40 MG DR TABLET PO SCH ×2 (09:38→17:36)
[2023-01-07] MEDS: LevETIRAcetam 500 MG TABLET PO SCH ×2 (09:38→17:36)
[2023-01-07] MEDS: CLOPIDOGREL BISULFATE 75 MG TABLET PO SCH (09:38)
[2023-01-07] MEDS: AmLODIPine BESYLATE 10 MG TABLET PO SCH (09:39)
[2023-01-07] MEDS: ATORVASTATIN CALCIUM 40 MG TABLET PO SCH (09:39)
[2023-01-07] MEDS: FOLIC ACID 1 MG TABLET PO SCH (09:39)
[2023-01-07] MEDS: MAG HYDROX/ALUMINUM HYD/SIMETH ES 30 ML SUSPENSION UDCUP PO PRN ×2 (10:50→18:40)
[2023-01-07 18:18] LABS: APPEARANCE,URINE CLEAR (CLEAR); BILIRUBIN,URINE NEGATIVE (NEGATIVE); COLOR,URINE YELLOW (YELLOW); GLUCOSE, URINE (UA) NEGATIVE (NEGATIVE); KETONES,URINE NEGATIVE (NEGATIVE); LEUKOCYTE ESTERASE ,URINE NEGATIVE (NEGATIVE); NITRATE,URINE NEGATIVE (NEGATIVE); OCCULT BLOOD,URINE NEGATIVE (NEGATIVE); PH,URINE 6.5 (5.0-8.0); PROTEIN,URINE TRACE mg/dL (NEGATIVE); SPECIFIC GRAVITIY, URINE 1.022 (1.003-1.030); UROBILINOGEN,URINE <=1.0 mg/dL (<=1.0)
[2023-01-07 20:12] VITALS: BP 112/72; PULSE 62; RESP 18; TEMP 97.6; O2SAT 98
[2023-01-07] MEDS: ZOLPIDEM TARTRATE 10 MG TABLET PO PRN (21:12)
[2023-01-08] MEDS: FERROUS SULFATE 325 MG EC TABLET PO SCH (06:50)
[2023-01-08] MEDS: GABAPENTIN 400 MG CAPSULE PO SCH ×2 (08:03→16:29)
[2023-01-08] MEDS: PANTOPRAZOLE SODIUM 40 MG DR TABLET PO SCH ×2 (08:50→17:00)
[2023-01-08] MEDS: LevETIRAcetam 500 MG TABLET PO SCH ×2 (08:50→17:01)
[2023-01-08] MEDS: ATORVASTATIN CALCIUM 40 MG TABLET PO SCH (08:51)
[2023-01-08] MEDS: FOLIC ACID 1 MG TABLET PO SCH (08:51)
[2023-01-08] MEDS: SERTRALINE HCL 50 MG TABLET PO SCH (08:51)
[2023-01-08] MEDS: ASPIRIN 81 MG CHEWABLE TABLET PO SCH (08:51)
[2023-01-08] MEDS: CLOPIDOGREL BISULFATE 75 MG TABLET PO SCH (08:51)
[2023-01-08] MEDS: LISINOPRIL 10 MG TABLET PO SCH (09:00)
[2023-01-08] MEDS: AmLODIPine BESYLATE 10 MG TABLET PO SCH (09:00)
[2023-01-08 09:15] VITALS: BP 100/56; PULSE 60; RESP 17; TEMP 98.3; O2SAT 96
[2023-01-08] MEDS: LORazepam 2 MG TABLET PO PRN (15:58)
[2023-01-08] MEDS: ZOLPIDEM TARTRATE 10 MG TABLET PO PRN (21:01)
[2023-01-08 21:25] VITALS: TEMP 98.1
[2023-01-08 22:16] VITALS: RESP 18
[2023-01-09] MEDS: GABAPENTIN 400 MG CAPSULE PO SCH ×3 (01:00→15:52)
[2023-01-09] MEDS: FERROUS SULFATE 325 MG EC TABLET PO SCH (07:07)
[2023-01-09] MEDS: AmLODIPine BESYLATE 10 MG TABLET PO SCH (08:20)
[2023-01-09] MEDS: CLOPIDOGREL BISULFATE 75 MG TABLET PO SCH (08:20)
[2023-01-09] MEDS: PANTOPRAZOLE SODIUM 40 MG DR TABLET PO SCH ×2 (08:20→16:47)
[2023-01-09] MEDS: SERTRALINE HCL 50 MG TABLET PO SCH (08:20)
[2023-01-09] MEDS: ASPIRIN 81 MG CHEWABLE TABLET PO SCH (08:21)
[2023-01-09] MEDS: FOLIC ACID 1 MG TABLET PO SCH (08:22)
[2023-01-09] MEDS: LevETIRAcetam 500 MG TABLET PO SCH ×2 (08:22→16:47)
[2023-01-09] MEDS: ATORVASTATIN CALCIUM 40 MG TABLET PO SCH (08:22)
[2023-01-09] MEDS: LISINOPRIL 10 MG TABLET PO SCH (08:24)
[2023-01-09 08:26] VITALS: BP 145/81; PULSE 64; RESP 18; TEMP 97.5; O2SAT 100
[2023-01-09] MEDS: ZOLPIDEM TARTRATE 10 MG TABLET PO PRN (21:13)
[2023-01-09] MEDS: LORazepam 2 MG TABLET PO PRN (21:13)
[2023-01-10] MEDS: GABAPENTIN 400 MG CAPSULE PO SCH ×3 (00:11→15:58)
[2023-01-10 08:06] VITALS: BP 112/69; PULSE 63; RESP 18; TEMP 97.1; O2SAT 97
[2023-01-10] MEDS: LISINOPRIL 10 MG TABLET PO SCH (08:11)
[2023-01-10] MEDS: LevETIRAcetam 500 MG TABLET PO SCH ×2 (08:11→16:48)
[2023-01-10] MEDS: ATORVASTATIN CALCIUM 40 MG TABLET PO SCH (08:12)
[2023-01-10] MEDS: ASPIRIN 81 MG CHEWABLE TABLET PO SCH (08:12)
[2023-01-10] MEDS: SERTRALINE HCL 50 MG TABLET PO SCH (08:12)
[2023-01-10] MEDS: PANTOPRAZOLE SODIUM 40 MG DR TABLET PO SCH ×2 (08:12→16:48)
[2023-01-10] MEDS: FOLIC ACID 1 MG TABLET PO SCH (08:12)
[2023-01-10] MEDS: AmLODIPine BESYLATE 10 MG TABLET PO SCH (08:12)
[2023-01-10] MEDS: FERROUS SULFATE 325 MG EC TABLET PO SCH (08:12)
[2023-01-10] MEDS: CLOPIDOGREL BISULFATE 75 MG TABLET PO SCH (08:14)
[2023-01-10] MEDS: TraMADol HCL 50 MG TABLET PO PRN (13:48)
[2023-01-10 20:23] VITALS: BP 106/64; PULSE 60; RESP 20; TEMP 97.2; O2SAT 97
[2023-01-10] MEDS: ZOLPIDEM TARTRATE 10 MG TABLET PO PRN (21:04)
[2023-01-11] MEDS: GABAPENTIN 400 MG CAPSULE PO SCH ×3 (00:18→16:00)
[2023-01-11] MEDS: LORazepam 2 MG TABLET PO PRN ×2 (01:05→22:43)
[2023-01-11] MEDS: FERROUS SULFATE 325 MG EC TABLET PO SCH (07:16)
[2023-01-11] MEDS: LISINOPRIL 10 MG TABLET PO SCH (08:13)
[2023-01-11] MEDS: CLOPIDOGREL BISULFATE 75 MG TABLET PO SCH (08:14)
[2023-01-11] MEDS: SERTRALINE HCL 50 MG TABLET PO SCH (08:14)
[2023-01-11] MEDS: FOLIC ACID 1 MG TABLET PO SCH (08:15)
[2023-01-11] MEDS: LevETIRAcetam 500 MG TABLET PO SCH ×2 (08:15→16:37)
[2023-01-11] MEDS: ATORVASTATIN CALCIUM 40 MG TABLET PO SCH (08:15)
[2023-01-11] MEDS: AmLODIPine BESYLATE 10 MG TABLET PO SCH (08:15)
[2023-01-11] MEDS: ASPIRIN 81 MG CHEWABLE TABLET PO SCH (08:16)
[2023-01-11] MEDS: PANTOPRAZOLE SODIUM 40 MG DR TABLET PO SCH ×2 (08:16→16:37)
[2023-01-11 08:20] VITALS: BP 113/74; PULSE 62; RESP 18; TEMP 97.3; O2SAT 98
[2023-01-11 10:50] VITALS: BP 125/72; PULSE 62; RESP 18
[2023-01-11] MEDS: TraMADol HCL 50 MG TABLET PO PRN (10:53)
[2023-01-11 11:53] VITALS: RESP 18
[2023-01-11 20:08] VITALS: BP 110/65; PULSE 62; RESP 18; TEMP 97.3; O2SAT 97
[2023-01-11 20:09] VITALS: BP 117/77; PULSE 78; RESP 18; TEMP 97.6
[2023-01-11] MEDS: ZOLPIDEM TARTRATE 10 MG TABLET PO PRN (21:01)
[2023-01-12] MEDS: GABAPENTIN 400 MG CAPSULE PO SCH ×3 (00:10→16:29)
[2023-01-12] MEDS: FERROUS SULFATE 325 MG EC TABLET PO SCH (06:57)
[2023-01-12] MEDS: LISINOPRIL 10 MG TABLET PO SCH (08:19)
[2023-01-12] MEDS: LevETIRAcetam 500 MG TABLET PO SCH ×2 (08:20→17:40)
[2023-01-12] MEDS: PANTOPRAZOLE SODIUM 40 MG DR TABLET PO SCH ×2 (08:20→17:40)
[2023-01-12] MEDS: CLOPIDOGREL BISULFATE 75 MG TABLET PO SCH (08:20)
[2023-01-12] MEDS: FOLIC ACID 1 MG TABLET PO SCH (08:20)
[2023-01-12] MEDS: AmLODIPine BESYLATE 10 MG TABLET PO SCH (08:20)
[2023-01-12] MEDS: SERTRALINE HCL 50 MG TABLET PO SCH (08:20)
[2023-01-12] MEDS: ATORVASTATIN CALCIUM 40 MG TABLET PO SCH (08:20)
[2023-01-12] MEDS: ASPIRIN 81 MG CHEWABLE TABLET PO SCH (08:20)
[2023-01-12 08:22] VITALS: BP 134/81; PULSE 62; RESP 18; TEMP 97.4; O2SAT 97
[2023-01-12] MEDS: LORazepam 2 MG TABLET PO PRN (20:06)
[2023-01-12 20:49] VITALS: RESP 18
[2023-01-12] MEDS: ZOLPIDEM TARTRATE 10 MG TABLET PO PRN (21:54)
[2023-01-13] MEDS: GABAPENTIN 400 MG CAPSULE PO SCH ×3 (00:08→16:10)
[2023-01-13] MEDS: FERROUS SULFATE 325 MG EC TABLET PO SCH (07:06)
[2023-01-13 08:56] VITALS: BP 125/79; PULSE 61; RESP 18; TEMP 97.7; O2SAT 99
[2023-01-13] MEDS: CLOPIDOGREL BISULFATE 75 MG TABLET PO SCH (08:58)
[2023-01-13] MEDS: AmLODIPine BESYLATE 10 MG TABLET PO SCH (08:58)
[2023-01-13] MEDS: FOLIC ACID 1 MG TABLET PO SCH (08:58)
[2023-01-13] MEDS: ASPIRIN 81 MG CHEWABLE TABLET PO SCH (08:58)
[2023-01-13] MEDS: LevETIRAcetam 500 MG TABLET PO SCH ×2 (08:58→16:23)
[2023-01-13] MEDS: LISINOPRIL 10 MG TABLET PO SCH (08:58)
[2023-01-13] MEDS: ATORVASTATIN CALCIUM 40 MG TABLET PO SCH (08:58)
[2023-01-13] MEDS: PANTOPRAZOLE SODIUM 40 MG DR TABLET PO SCH ×2 (08:58→16:23)
[2023-01-13] MEDS: SERTRALINE HCL 50 MG TABLET PO SCH (08:59)
[2023-01-13] MEDS: MAG HYDROX/ALUMINUM HYD/SIMETH ES 30 ML SUSPENSION UDCUP PO PRN (12:08)
[2023-01-13] MEDS ORDERED: SERT-158 PO (15:53)
[2023-01-13] MEDS ORDERED: ATOR80TA PO (15:59)
[2023-01-13] MEDS ORDERED: AMLO-258 PO (16:03)
[2023-01-13] MEDS: TraMADol HCL 50 MG TABLET PO PRN (17:12)
[2023-01-13 17:14] VITALS: RESP 18
[2023-01-13 18:12] VITALS: RESP 18
[2023-01-13 20:35] VITALS: BP 135/82; PULSE 64; RESP 18; TEMP 97.6
[2023-01-14] MEDS: GABAPENTIN 400 MG CAPSULE PO SCH ×3 (00:19→16:05)
[2023-01-14] MEDS: FERROUS SULFATE 325 MG EC TABLET PO SCH (07:00)
[2023-01-14 08:14] VITALS: BP 135/80; PULSE 60; RESP 19; TEMP 97.7; O2SAT 98
[2023-01-14] MEDS: LISINOPRIL 10 MG TABLET PO SCH (08:18)
[2023-01-14] MEDS: PANTOPRAZOLE SODIUM 40 MG DR TABLET PO SCH ×2 (08:18→16:05)
[2023-01-14] MEDS: SERTRALINE HCL 50 MG TABLET PO SCH (08:18)
[2023-01-14] MEDS: LevETIRAcetam 500 MG TABLET PO SCH ×2 (08:18→16:05)
[2023-01-14] MEDS: AmLODIPine BESYLATE 10 MG TABLET PO SCH (08:19)
[2023-01-14] MEDS: CLOPIDOGREL BISULFATE 75 MG TABLET PO SCH (08:19)
[2023-01-14] MEDS: FOLIC ACID 1 MG TABLET PO SCH (08:19)
[2023-01-14] MEDS: ASPIRIN 81 MG CHEWABLE TABLET PO SCH (08:19)
[2023-01-14] MEDS: ATORVASTATIN CALCIUM 40 MG TABLET PO SCH (08:20)
[2023-01-14] MEDS: TraMADol HCL 50 MG TABLET PO PRN (14:55)
[2023-01-14 20:18] VITALS: RESP 18
[2023-01-14] MEDS: MAG HYDROX/ALUMINUM HYD/SIMETH ES 30 ML SUSPENSION UDCUP PO PRN (20:59)
[2023-01-15] MEDS: GABAPENTIN 400 MG CAPSULE PO SCH ×4 (00:39→23:25)
[2023-01-15] MEDS: ZOLPIDEM TARTRATE 10 MG TABLET PO PRN ×2 (00:46→21:03)
[2023-01-15] MEDS: FERROUS SULFATE 325 MG EC TABLET PO SCH (07:02)
[2023-01-15] MEDS: LISINOPRIL 10 MG TABLET PO SCH (09:00)
[2023-01-15] MEDS: AmLODIPine BESYLATE 10 MG TABLET PO SCH (09:00)
[2023-01-15] MEDS: ASPIRIN 81 MG CHEWABLE TABLET PO SCH (09:49)
[2023-01-15] MEDS: SERTRALINE HCL 50 MG TABLET PO SCH (09:49)
[2023-01-15] MEDS: LevETIRAcetam 500 MG TABLET PO SCH ×2 (09:49→16:06)
[2023-01-15] MEDS: PANTOPRAZOLE SODIUM 40 MG DR TABLET PO SCH ×2 (09:49→16:06)
[2023-01-15] MEDS: ATORVASTATIN CALCIUM 40 MG TABLET PO SCH (09:49)
[2023-01-15] MEDS: FOLIC ACID 1 MG TABLET PO SCH (09:49)
[2023-01-15] MEDS: CLOPIDOGREL BISULFATE 75 MG TABLET PO SCH (09:49)
[2023-01-15 09:52] VITALS: BP 100/63; PULSE 65; RESP 18; TEMP 97.7
[2023-01-15] MEDS: TraMADol HCL 50 MG TABLET PO PRN (10:59)
[2023-01-15 21:21] VITALS: RESP 18
[2023-01-16 04:40] VITALS: BP 123/70; PULSE 60; RESP 18; TEMP 97.5
[2023-01-16] MEDS: TraMADol HCL 50 MG TABLET PO PRN (04:41)
[2023-01-16] MEDS: FERROUS SULFATE 325 MG EC TABLET PO SCH (06:51)
[2023-01-16 08:29] VITALS: BP 109/65; PULSE 61; RESP 17; TEMP 98.2; O2SAT 97
[2023-01-16] MEDS: PANTOPRAZOLE SODIUM 40 MG DR TABLET PO SCH ×2 (10:43→16:14)
[2023-01-16] MEDS: LISINOPRIL 10 MG TABLET PO SCH (10:43)
[2023-01-16] MEDS: AmLODIPine BESYLATE 10 MG TABLET PO SCH (10:43)
[2023-01-16] MEDS: GABAPENTIN 400 MG CAPSULE PO SCH ×3 (10:43→23:04)
[2023-01-16] MEDS: SERTRALINE HCL 50 MG TABLET PO SCH (10:43)
[2023-01-16] MEDS: CLOPIDOGREL BISULFATE 75 MG TABLET PO SCH (10:44)
[2023-01-16] MEDS: FOLIC ACID 1 MG TABLET PO SCH (10:44)
[2023-01-16] MEDS: LevETIRAcetam 500 MG TABLET PO SCH ×2 (10:44→16:14)
[2023-01-16] MEDS: ASPIRIN 81 MG CHEWABLE TABLET PO SCH (10:44)
[2023-01-16] MEDS: ATORVASTATIN CALCIUM 40 MG TABLET PO SCH (10:45)
[2023-01-16] MEDS: LORazepam 2 MG TABLET PO PRN (19:35)
[2023-01-16 20:02] VITALS: BP 104/62; PULSE 62; RESP 18; TEMP 97.6; O2SAT 99
[2023-01-16] MEDS: ZOLPIDEM TARTRATE 10 MG TABLET PO PRN (20:55)
[2023-01-17] MEDS: FERROUS SULFATE 325 MG EC TABLET PO SCH (06:36)
[2023-01-17 08:00] VITALS: BP 128/69; PULSE 72; RESP 18; TEMP 98
[2023-01-17] MEDS: GABAPENTIN 400 MG CAPSULE PO SCH ×3 (09:22→23:27)
[2023-01-17] MEDS: LevETIRAcetam 500 MG TABLET PO SCH ×2 (09:23→16:04)
[2023-01-17] MEDS: ASPIRIN 81 MG CHEWABLE TABLET PO SCH (09:23)
[2023-01-17] MEDS: AmLODIPine BESYLATE 10 MG TABLET PO SCH (09:23)
[2023-01-17] MEDS: FOLIC ACID 1 MG TABLET PO SCH (09:23)
[2023-01-17] MEDS: ATORVASTATIN CALCIUM 40 MG TABLET PO SCH (09:23)
[2023-01-17] MEDS: CLOPIDOGREL BISULFATE 75 MG TABLET PO SCH (09:23)
[2023-01-17] MEDS: SERTRALINE HCL 50 MG TABLET PO SCH (09:23)
[2023-01-17] MEDS: LISINOPRIL 10 MG TABLET PO SCH (09:23)
[2023-01-17] MEDS: PANTOPRAZOLE SODIUM 40 MG DR TABLET PO SCH ×2 (09:29→16:04)
[2023-01-17] MEDS: LORazepam 2 MG TABLET PO PRN (19:36)
[2023-01-17] MEDS: ZOLPIDEM TARTRATE 10 MG TABLET PO PRN (20:18)
[2023-01-17 20:25] VITALS: BP 120/70; PULSE 75; RESP 18; TEMP 98.1; O2SAT 98
[2023-01-18] MEDS ORDERED: HALOPERIDOL LACTATE 5 MG/ML VIAL IM ONE (01:30)
[2023-01-18] MEDS ORDERED: LORazepam 2 MG/ML VIAL IM ONE (01:30)
[2023-01-18] MEDS: FERROUS SULFATE 325 MG EC TABLET PO SCH (07:42)
[2023-01-18] MEDS: SERTRALINE HCL 50 MG TABLET PO SCH (08:40)
[2023-01-18] MEDS: CLOPIDOGREL BISULFATE 75 MG TABLET PO SCH (08:41)
[2023-01-18] MEDS: LevETIRAcetam 500 MG TABLET PO SCH ×2 (08:41→16:33)
[2023-01-18] MEDS: ASPIRIN 81 MG CHEWABLE TABLET PO SCH (08:41)
[2023-01-18] MEDS: AmLODIPine BESYLATE 10 MG TABLET PO SCH (08:41)
[2023-01-18] MEDS: LISINOPRIL 10 MG TABLET PO SCH (08:41)
[2023-01-18] MEDS: ATORVASTATIN CALCIUM 40 MG TABLET PO SCH (08:41)
[2023-01-18] MEDS: GABAPENTIN 400 MG CAPSULE PO SCH ×3 (08:41→23:25)
[2023-01-18] MEDS: PANTOPRAZOLE SODIUM 40 MG DR TABLET PO SCH ×2 (08:42→16:33)
[2023-01-18] MEDS: FOLIC ACID 1 MG TABLET PO SCH (08:42)
[2023-01-18 12:23] VITALS: BP 105/64; PULSE 61; RESP 18; TEMP 98; O2SAT 98
[2023-01-18] MEDS: LORazepam 2 MG TABLET PO PRN (20:09)
[2023-01-18] MEDS: ZOLPIDEM TARTRATE 10 MG TABLET PO PRN (20:09)
[2023-01-18 21:49] VITALS: BP 115/70; PULSE 70; RESP 18; TEMP 97.9; O2SAT 98
[2023-01-19] MEDS: FERROUS SULFATE 325 MG EC TABLET PO SCH (06:52)
[2023-01-19 08:52] VITALS: BP 149/82; PULSE 60; RESP 17; TEMP 97.1; O2SAT 95
[2023-01-19] MEDS: CLOPIDOGREL BISULFATE 75 MG TABLET PO SCH (09:53)
[2023-01-19] MEDS: LISINOPRIL 10 MG TABLET PO SCH (09:53)
[2023-01-19] MEDS: AmLODIPine BESYLATE 10 MG TABLET PO SCH (09:53)
[2023-01-19] MEDS: PANTOPRAZOLE SODIUM 40 MG DR TABLET PO SCH ×2 (09:53→16:02)
[2023-01-19] MEDS: SERTRALINE HCL 50 MG TABLET PO SCH (09:53)
[2023-01-19] MEDS: LevETIRAcetam 500 MG TABLET PO SCH ×2 (09:53→16:01)
[2023-01-19] MEDS: FOLIC ACID 1 MG TABLET PO SCH (09:54)
[2023-01-19] MEDS: ATORVASTATIN CALCIUM 40 MG TABLET PO SCH (09:57)
[2023-01-19] MEDS: ASPIRIN 81 MG CHEWABLE TABLET PO SCH (09:59)
[2023-01-19] MEDS: GABAPENTIN 400 MG CAPSULE PO SCH ×3 (10:00→23:48)
[2023-01-19 11:54] VITALS: BP 149/82; PULSE 60; RESP 17; TEMP 97.1
[2023-01-19] MEDS: TraMADol HCL 50 MG TABLET PO PRN (11:54)
[2023-01-19 12:54] VITALS: BP 127/81; PULSE 87; RESP 17; TEMP 98
[2023-01-19] MEDS: LORazepam 2 MG TABLET PO PRN (19:55)
[2023-01-19] MEDS: ZOLPIDEM TARTRATE 10 MG TABLET PO PRN (20:58)
[2023-01-19 21:12] VITALS: RESP 18
[2023-01-20] MEDS: FERROUS SULFATE 325 MG EC TABLET PO SCH (06:32)
[2023-01-20] MEDS: GABAPENTIN 400 MG CAPSULE PO SCH ×2 (09:53→16:01)
[2023-01-20] MEDS: SERTRALINE HCL 50 MG TABLET PO SCH (09:54)
[2023-01-20] MEDS: ATORVASTATIN CALCIUM 40 MG TABLET PO SCH (09:54)
[2023-01-20] MEDS: LevETIRAcetam 500 MG TABLET PO SCH ×2 (09:55→16:02)
[2023-01-20] MEDS: CLOPIDOGREL BISULFATE 75 MG TABLET PO SCH (09:55)
[2023-01-20] MEDS: PANTOPRAZOLE SODIUM 40 MG DR TABLET PO SCH ×2 (09:55→16:02)
[2023-01-20] MEDS: LISINOPRIL 10 MG TABLET PO SCH (09:55)
[2023-01-20] MEDS: AmLODIPine BESYLATE 10 MG TABLET PO SCH (09:57)
[2023-01-20] MEDS: ASPIRIN 81 MG CHEWABLE TABLET PO SCH (09:57)
[2023-01-20] MEDS: FOLIC ACID 1 MG TABLET PO SCH (09:57)
[2023-01-20] MEDS: ACETAMINOPHEN 325 MG TABLET PO PRN (10:46)
[2023-01-20 15:11] VITALS: BP 114/66; PULSE 62; RESP 17; TEMP 96.7; O2SAT 99
[2023-01-20] MEDS: ZOLPIDEM TARTRATE 10 MG TABLET PO PRN (20:34)
[2023-01-20 20:54] VITALS: BP 116/78; PULSE 70; RESP 18; TEMP 97.4; O2SAT 98
[2023-01-21] MEDS: GABAPENTIN 400 MG CAPSULE PO SCH ×3 (00:09→16:28)
[2023-01-21 04:25] VITALS: BP 120/80; PULSE 76; RESP 19; TEMP 98; O2SAT 98
[2023-01-21] MEDS: TraMADol HCL 50 MG TABLET PO PRN ×2 (04:30→09:20)
[2023-01-21] MEDS: FERROUS SULFATE 325 MG EC TABLET PO SCH (07:07)
[2023-01-21 08:46] VITALS: BP 99/56; PULSE 61; RESP 17; TEMP 98.1; O2SAT 98
[2023-01-21] MEDS: AmLODIPine BESYLATE 10 MG TABLET PO SCH (09:00)
[2023-01-21] MEDS: LORazepam 2 MG TABLET PO PRN ×3 (09:17→21:14)
[2023-01-21] MEDS: ATORVASTATIN CALCIUM 40 MG TABLET PO SCH (09:17)
[2023-01-21] MEDS: CLOPIDOGREL BISULFATE 75 MG TABLET PO SCH (09:17)
[2023-01-21] MEDS: ASPIRIN 81 MG CHEWABLE TABLET PO SCH (09:18)
[2023-01-21] MEDS: FOLIC ACID 1 MG TABLET PO SCH (09:18)
[2023-01-21] MEDS: SERTRALINE HCL 50 MG TABLET PO SCH (09:18)
[2023-01-21] MEDS: LISINOPRIL 10 MG TABLET PO SCH (09:18)
[2023-01-21] MEDS: LevETIRAcetam 500 MG TABLET PO SCH ×2 (09:18→16:27)
[2023-01-21 09:21] VITALS: BP 99/56; PULSE 61; RESP 17; TEMP 98.1
[2023-01-21] MEDS: IBUPROFEN 400 MG TABLET PO PRN (09:21)
[2023-01-21] MEDS: PANTOPRAZOLE SODIUM 40 MG DR TABLET PO SCH ×2 (10:13→16:27)
[2023-01-21 10:21] VITALS: BP 112/61; PULSE 68; RESP 17; TEMP 98
[2023-01-21 20:32] VITALS: RESP 18
[2023-01-21] MEDS: ZOLPIDEM TARTRATE 10 MG TABLET PO PRN (21:14)
[2023-01-22] MEDS: GABAPENTIN 400 MG CAPSULE PO SCH ×4 (00:26→23:02)
[2023-01-22] MEDS: FERROUS SULFATE 325 MG EC TABLET PO SCH (06:40)
[2023-01-22] MEDS: AmLODIPine BESYLATE 10 MG TABLET PO SCH (08:27)
[2023-01-22] MEDS: ASPIRIN 81 MG CHEWABLE TABLET PO SCH (08:27)
[2023-01-22] MEDS: LevETIRAcetam 500 MG TABLET PO SCH ×2 (08:27→16:06)
[2023-01-22] MEDS: PANTOPRAZOLE SODIUM 40 MG DR TABLET PO SCH ×2 (08:27→16:06)
[2023-01-22] MEDS: LISINOPRIL 10 MG TABLET PO SCH (08:28)
[2023-01-22] MEDS: CLOPIDOGREL BISULFATE 75 MG TABLET PO SCH (08:28)
[2023-01-22] MEDS: SERTRALINE HCL 100 MG TABLET PO SCH (08:28)
[2023-01-22] MEDS: FOLIC ACID 1 MG TABLET PO SCH (08:28)
[2023-01-22] MEDS: ATORVASTATIN CALCIUM 40 MG TABLET PO SCH (08:28)
[2023-01-22 09:06] VITALS: BP 125/64; PULSE 90; RESP 18; TEMP 97.7; O2SAT 98
[2023-01-22 09:20] LABS: PROTHROMBIN TIME 10.4 SEC (9.4-11.6)
[2023-01-22] MEDS: TraMADol HCL 50 MG TABLET PO PRN ×2 (12:19→22:23)
[2023-01-22] MEDS: LORazepam 2 MG TABLET PO PRN (19:45)
[2023-01-22] MEDS: ZOLPIDEM TARTRATE 10 MG TABLET PO PRN (20:10)
[2023-01-22 21:47] VITALS: BP 106/69; PULSE 61; RESP 18; TEMP 97.9; O2SAT 98
[2023-01-22 22:15] VITALS: BP 111/71; PULSE 68; RESP 18; TEMP 97.7; O2SAT 97
[2023-01-22 23:17] VITALS: RESP 18; TEMP 97.8
[2023-01-23] MEDS: FERROUS SULFATE 325 MG EC TABLET PO SCH (06:45)
[2023-01-23 09:15] VITALS: BP 124/64; PULSE 65; RESP 18; TEMP 98.2; O2SAT 98
[2023-01-23] MEDS: GABAPENTIN 400 MG CAPSULE PO SCH ×3 (09:19→23:19)
[2023-01-23] MEDS: LevETIRAcetam 500 MG TABLET PO SCH ×2 (09:19→17:08)
[2023-01-23] MEDS: LISINOPRIL 10 MG TABLET PO SCH (09:19)
[2023-01-23] MEDS: ASPIRIN 81 MG CHEWABLE TABLET PO SCH (09:19)
[2023-01-23] MEDS: CLOPIDOGREL BISULFATE 75 MG TABLET PO SCH (09:19)
[2023-01-23] MEDS: FOLIC ACID 1 MG TABLET PO SCH (09:20)
[2023-01-23] MEDS: ATORVASTATIN CALCIUM 40 MG TABLET PO SCH (09:20)
[2023-01-23] MEDS: PANTOPRAZOLE SODIUM 40 MG DR TABLET PO SCH ×2 (09:20→17:08)
[2023-01-23] MEDS: AmLODIPine BESYLATE 10 MG TABLET PO SCH (09:20)
[2023-01-23] MEDS: SERTRALINE HCL 100 MG TABLET PO SCH (09:20)
[2023-01-23 15:54] VITALS: BP 116/68; PULSE 62; RESP 18; TEMP 98; O2SAT 98
[2023-01-23] MEDS: BACITRACIN 28 GM OINTMENT TP SCH (17:09)
[2023-01-23] MEDS: ZOLPIDEM TARTRATE 10 MG TABLET PO PRN ×2 (20:55→20:59)
[2023-01-24] MEDS: FERROUS SULFATE 325 MG EC TABLET PO SCH (07:02)
[2023-01-24] MEDS: LevETIRAcetam 500 MG TABLET PO SCH ×2 (09:02→17:05)
[2023-01-24] MEDS: GABAPENTIN 400 MG CAPSULE PO SCH ×2 (09:02→17:06)
[2023-01-24] MEDS: PANTOPRAZOLE SODIUM 40 MG DR TABLET PO SCH ×2 (09:02→17:05)
[2023-01-24] MEDS: FOLIC ACID 1 MG TABLET PO SCH (09:03)
[2023-01-24] MEDS: SERTRALINE HCL 100 MG TABLET PO SCH (09:03)
[2023-01-24] MEDS: ATORVASTATIN CALCIUM 40 MG TABLET PO SCH (09:03)
[2023-01-24] MEDS: AmLODIPine BESYLATE 10 MG TABLET PO SCH (09:04)
[2023-01-24] MEDS: LISINOPRIL 10 MG TABLET PO SCH (09:04)
[2023-01-24] MEDS: BACITRACIN 28 GM OINTMENT TP SCH ×2 (10:08→17:06)
[2023-01-24 12:10] VITALS: RESP 18
[2023-01-24] MEDS: LORazepam 2 MG TABLET PO PRN (21:12)
[2023-01-24] MEDS: ZOLPIDEM TARTRATE 10 MG TABLET PO PRN (21:12)
[2023-01-25] MEDS: FERROUS SULFATE 325 MG EC TABLET PO SCH (06:50)
[2023-01-25] MEDS: FOLIC ACID 1 MG TABLET PO SCH (08:13)
[2023-01-25] MEDS: LISINOPRIL 10 MG TABLET PO SCH (08:13)
[2023-01-25] MEDS: GABAPENTIN 400 MG CAPSULE PO SCH ×4 (08:13→23:25)
[2023-01-25] MEDS: SERTRALINE HCL 100 MG TABLET PO SCH (08:13)
[2023-01-25] MEDS: AmLODIPine BESYLATE 10 MG TABLET PO SCH (08:13)
[2023-01-25] MEDS: LevETIRAcetam 500 MG TABLET PO SCH ×2 (08:14→16:17)
[2023-01-25] MEDS: ATORVASTATIN CALCIUM 40 MG TABLET PO SCH (08:15)
[2023-01-25] MEDS: PANTOPRAZOLE SODIUM 40 MG DR TABLET PO SCH ×2 (08:15→16:19)
[2023-01-25] MEDS: BACITRACIN 28 GM OINTMENT TP SCH ×2 (08:42→16:19)
[2023-01-25 09:25] VITALS: BP 115/71; PULSE 68; RESP 18; O2SAT 96
[2023-01-25] MEDS: ZOLPIDEM TARTRATE 10 MG TABLET PO PRN (20:28)
[2023-01-25 22:43] VITALS: RESP 18
[2023-01-26] MEDS: FERROUS SULFATE 325 MG EC TABLET PO SCH (07:08)
[2023-01-26 08:27] VITALS: BP 141/83; PULSE 72; RESP 18; TEMP 97.6; O2SAT 96
[2023-01-26] MEDS: CLOPIDOGREL BISULFATE 75 MG TABLET PO SCH (08:54)
[2023-01-26] MEDS: ATORVASTATIN CALCIUM 40 MG TABLET PO SCH (08:54)
[2023-01-26] MEDS: SERTRALINE HCL 100 MG TABLET PO SCH (08:54)
[2023-01-26] MEDS: ASPIRIN 81 MG CHEWABLE TABLET PO SCH (08:54)
[2023-01-26] MEDS: GABAPENTIN 400 MG CAPSULE PO SCH ×3 (08:54→23:41)
[2023-01-26] MEDS: AmLODIPine BESYLATE 10 MG TABLET PO SCH (08:54)
[2023-01-26] MEDS: LISINOPRIL 10 MG TABLET PO SCH (08:54)
[2023-01-26] MEDS: LevETIRAcetam 500 MG TABLET PO SCH ×2 (08:54→16:08)
[2023-01-26] MEDS: FOLIC ACID 1 MG TABLET PO SCH (08:55)
[2023-01-26] MEDS: PANTOPRAZOLE SODIUM 40 MG DR TABLET PO SCH ×2 (08:55→16:08)
[2023-01-26] MEDS: BACITRACIN 28 GM OINTMENT TP SCH ×2 (08:55→16:09)
[2023-01-26 12:14] VITALS: BP 141/83; PULSE 72; RESP 18; TEMP 97.2
[2023-01-26] MEDS: TraMADol HCL 50 MG TABLET PO PRN (12:14)
[2023-01-26 13:14] VITALS: BP 131/80; PULSE 72; RESP 18; TEMP 97.6
[2023-01-26 20:10] VITALS: BP 130/80; PULSE 70; RESP 18; TEMP 97.8; O2SAT 98
[2023-01-26] MEDS: ZOLPIDEM TARTRATE 10 MG TABLET PO PRN (20:30)
[2023-01-27] MEDS: FERROUS SULFATE 325 MG EC TABLET PO SCH (06:55)
[2023-01-27] MEDS: PANTOPRAZOLE SODIUM 40 MG DR TABLET PO SCH ×2 (08:41→16:00)
[2023-01-27] MEDS: CLOPIDOGREL BISULFATE 75 MG TABLET PO SCH (08:41)
[2023-01-27] MEDS: SERTRALINE HCL 100 MG TABLET PO SCH (08:41)
[2023-01-27] MEDS: GABAPENTIN 400 MG CAPSULE PO SCH ×3 (08:41→23:47)
[2023-01-27] MEDS: LevETIRAcetam 500 MG TABLET PO SCH ×2 (08:43→16:00)
[2023-01-27] MEDS: ASPIRIN 81 MG CHEWABLE TABLET PO SCH (08:43)
[2023-01-27] MEDS: FOLIC ACID 1 MG TABLET PO SCH (08:43)
[2023-01-27] MEDS: ATORVASTATIN CALCIUM 40 MG TABLET PO SCH (08:43)
[2023-01-27] MEDS: AmLODIPine BESYLATE 10 MG TABLET PO SCH (08:45)
[2023-01-27] MEDS: LISINOPRIL 10 MG TABLET PO SCH (08:45)
[2023-01-27] MEDS: BACITRACIN 28 GM OINTMENT TP SCH ×2 (08:46→16:01)
[2023-01-27 08:50] VITALS: BP 105/62; PULSE 65; RESP 18; TEMP 97.8; O2SAT 96
[2023-01-27] MEDS: TraMADol HCL 50 MG TABLET PO PRN (18:19)
[2023-01-27] MEDS: ZOLPIDEM TARTRATE 10 MG TABLET PO PRN (21:02)
[2023-01-28] MEDS: FERROUS SULFATE 325 MG EC TABLET PO SCH (06:48)
[2023-01-28] MEDS: AmLODIPine BESYLATE 10 MG TABLET PO SCH (10:03)
[2023-01-28] MEDS: SERTRALINE HCL 100 MG TABLET PO SCH (10:03)
[2023-01-28] MEDS: BACITRACIN 28 GM OINTMENT TP SCH ×2 (10:03→16:17)
[2023-01-28] MEDS: ATORVASTATIN CALCIUM 40 MG TABLET PO SCH (10:03)
[2023-01-28] MEDS: FOLIC ACID 1 MG TABLET PO SCH (10:03)
[2023-01-28] MEDS: CLOPIDOGREL BISULFATE 75 MG TABLET PO SCH (10:03)
[2023-01-28] MEDS: ASPIRIN 81 MG CHEWABLE TABLET PO SCH (10:03)
[2023-01-28] MEDS: LevETIRAcetam 500 MG TABLET PO SCH ×2 (10:03→16:16)
[2023-01-28] MEDS: GABAPENTIN 400 MG CAPSULE PO SCH ×2 (10:04→16:16)
[2023-01-28] MEDS: LISINOPRIL 10 MG TABLET PO SCH (10:05)
[2023-01-28] MEDS: PANTOPRAZOLE SODIUM 40 MG DR TABLET PO SCH ×2 (10:05→16:16)
[2023-01-28 11:08] VITALS: BP 141/71; PULSE 65; RESP 18; TEMP 96.9; O2SAT 97
[2023-01-28 13:30] VITALS: BP 127/68; PULSE 91; RESP 17; TEMP 98.6; O2SAT 0
[2023-01-28] MEDS: TraMADol HCL 50 MG TABLET PO PRN (13:30)
[2023-01-28 14:30] VITALS: BP 111/62; PULSE 84; RESP 18; TEMP 98.2; O2SAT 98
[2023-01-28] MEDS: ZOLPIDEM TARTRATE 10 MG TABLET PO PRN (20:05)
[2023-01-28 20:11] VITALS: RESP 18
[2023-01-29] MEDS: GABAPENTIN 400 MG CAPSULE PO SCH ×4 (00:14→23:29)
[2023-01-29] MEDS: LORazepam 2 MG TABLET PO PRN (00:15)
[2023-01-29] MEDS: QUEtiapine FUMARATE 100 MG TABLET PO PRN (00:15)
[2023-01-29] MEDS: FERROUS SULFATE 325 MG EC TABLET PO SCH (06:33)
[2023-01-29] MEDS: LevETIRAcetam 500 MG TABLET PO SCH ×2 (08:07→16:15)
[2023-01-29] MEDS: CLOPIDOGREL BISULFATE 75 MG TABLET PO SCH (08:07)
[2023-01-29] MEDS: AmLODIPine BESYLATE 10 MG TABLET PO SCH (08:07)
[2023-01-29] MEDS: ASPIRIN 81 MG CHEWABLE TABLET PO SCH (08:08)
[2023-01-29] MEDS: SERTRALINE HCL 100 MG TABLET PO SCH (08:08)
[2023-01-29] MEDS: FOLIC ACID 1 MG TABLET PO SCH (08:08)
[2023-01-29] MEDS: ATORVASTATIN CALCIUM 40 MG TABLET PO SCH (08:08)
[2023-01-29] MEDS: PANTOPRAZOLE SODIUM 40 MG DR TABLET PO SCH ×2 (08:08→16:14)
[2023-01-29] MEDS: LISINOPRIL 10 MG TABLET PO SCH (08:08)
[2023-01-29] MEDS: BACITRACIN 28 GM OINTMENT TP SCH ×2 (08:11→16:15)
[2023-01-29 09:38] VITALS: O2SAT 0
[2023-01-29 20:00] VITALS: RESP 20; TEMP 97
[2023-01-29] MEDS: ZOLPIDEM TARTRATE 10 MG TABLET PO PRN (21:13)
[2023-01-30] MEDS: FERROUS SULFATE 325 MG EC TABLET PO SCH (07:08)
[2023-01-30 09:10] VITALS: TEMP 97.5
[2023-01-30] MEDS: ATORVASTATIN CALCIUM 40 MG TABLET PO SCH (10:20)
[2023-01-30 10:21] VITALS: BP 85/48; PULSE 60; RESP 18; TEMP 97.8
[2023-01-30] MEDS: LevETIRAcetam 500 MG TABLET PO SCH ×2 (10:21→16:13)
[2023-01-30] MEDS: CLOPIDOGREL BISULFATE 75 MG TABLET PO SCH (10:21)
[2023-01-30] MEDS: TraMADol HCL 50 MG TABLET PO PRN (10:21)
[2023-01-30] MEDS: AmLODIPine BESYLATE 10 MG TABLET PO SCH (10:21)
[2023-01-30] MEDS: ASPIRIN 81 MG CHEWABLE TABLET PO SCH (10:21)
[2023-01-30] MEDS: FOLIC ACID 1 MG TABLET PO SCH (10:21)
[2023-01-30] MEDS: SERTRALINE HCL 100 MG TABLET PO SCH (10:21)
[2023-01-30] MEDS: LISINOPRIL 10 MG TABLET PO SCH (10:21)
[2023-01-30] MEDS: BACITRACIN 28 GM OINTMENT TP SCH ×2 (10:21→16:14)
[2023-01-30] MEDS: GABAPENTIN 400 MG CAPSULE PO SCH ×3 (10:21→23:59)
[2023-01-30] MEDS: PANTOPRAZOLE SODIUM 40 MG DR TABLET PO SCH ×2 (10:22→16:13)
[2023-01-30 11:21] VITALS: BP 104/61; PULSE 65; RESP 17; TEMP 98
[2023-01-30 14:42] VITALS: BP 107/64; PULSE 60; RESP 18; TEMP 97.7; O2SAT 98
[2023-01-30 21:25] VITALS: BP 101/60; PULSE 61; RESP 18; TEMP 97.9; O2SAT 98
[2023-01-30] MEDS: ZOLPIDEM TARTRATE 10 MG TABLET PO PRN (21:28)
[2023-01-31 08:54] VITALS: BP 135/71; PULSE 71; RESP 18; TEMP 97.6; O2SAT 97
[2023-01-31] MEDS: PANTOPRAZOLE SODIUM 40 MG DR TABLET PO SCH ×2 (10:48→16:07)
[2023-01-31] MEDS: AmLODIPine BESYLATE 10 MG TABLET PO SCH (10:48)
[2023-01-31] MEDS: GABAPENTIN 400 MG CAPSULE PO SCH ×3 (10:48→23:41)
[2023-01-31] MEDS: SERTRALINE HCL 100 MG TABLET PO SCH (10:48)
[2023-01-31] MEDS: ASPIRIN 81 MG CHEWABLE TABLET PO SCH (10:48)
[2023-01-31] MEDS: LevETIRAcetam 500 MG TABLET PO SCH ×2 (10:48→16:07)
[2023-01-31] MEDS: FOLIC ACID 1 MG TABLET PO SCH (10:48)
[2023-01-31] MEDS: FERROUS SULFATE 325 MG EC TABLET PO SCH (10:48)
[2023-01-31] MEDS: ATORVASTATIN CALCIUM 40 MG TABLET PO SCH (10:49)
[2023-01-31] MEDS: CLOPIDOGREL BISULFATE 75 MG TABLET PO SCH (10:49)
[2023-01-31] MEDS: LISINOPRIL 10 MG TABLET PO SCH (10:50)
[2023-01-31] MEDS: BACITRACIN 28 GM OINTMENT TP SCH ×2 (10:50→16:07)
[2023-01-31 17:35] LABS: EOSINOPHILS % (AUTO) 3.9 % (1.0-6.0); HEMATOCRIT 38.5 % (41-53); HEMOGLOBIN 13.3 g/dL (13.5-17.5); LYMPHOCYTES # (AUTO) 1.5 K/uL (1.0-4.8); LYMPHOCYTES % (AUTO) 28.2 % (22.0-44.0); MEAN CORPUSCULAR HEMOGLOBIN 31.5 pg (26.0-34.0); MEAN CORPUSCULAR HGB CONC 34.6 G/dL (31.0-37.0); MEAN CORPUSCULAR VOLUME 91 fL (80-100); MONOCYTES # (AUTO) 0.6 K/uL (0.1-1.0); MONOCYTES % (AUTO) 10.9 % (2.0-9.0); PLATELET COUNT (AUTO) 245 K/uL (150-450); RED BLOOD CELL COUNT(AUTO) 4.23 MIL/uL (4.50-5.90); RED CELL DISTRIBUTION WIDTH 14.6 % (11.5-14.5); WHITE BLOOD COUNT (AUTO) 5.3 K/uL (4.5-11.0)
[2023-01-31] MEDS: ZOLPIDEM TARTRATE 10 MG TABLET PO PRN (21:59)
[2023-02-01] MEDS: LORazepam 2 MG TABLET PO PRN ×2 (00:40→14:06)
[2023-02-01 02:32] VITALS: RESP 18
[2023-02-01] MEDS: FERROUS SULFATE 325 MG EC TABLET PO SCH (06:53)
[2023-02-01] MEDS: CLOPIDOGREL BISULFATE 75 MG TABLET PO SCH (08:43)
[2023-02-01] MEDS: SERTRALINE HCL 100 MG TABLET PO SCH (08:43)
[2023-02-01] MEDS: LISINOPRIL 10 MG TABLET PO SCH (08:43)
[2023-02-01] MEDS: LevETIRAcetam 500 MG TABLET PO SCH ×2 (08:43→16:16)
[2023-02-01] MEDS: ATORVASTATIN CALCIUM 40 MG TABLET PO SCH (08:43)
[2023-02-01] MEDS: PANTOPRAZOLE SODIUM 40 MG DR TABLET PO SCH ×2 (08:43→16:16)
[2023-02-01] MEDS: ASPIRIN 81 MG CHEWABLE TABLET PO SCH (08:43)
[2023-02-01] MEDS: GABAPENTIN 400 MG CAPSULE PO SCH ×2 (08:43→16:16)
[2023-02-01] MEDS: FOLIC ACID 1 MG TABLET PO SCH (08:43)
[2023-02-01] MEDS: AmLODIPine BESYLATE 10 MG TABLET PO SCH (08:43)
[2023-02-01 09:58] VITALS: BP 114/69; PULSE 62; RESP 18; TEMP 97.9; O2SAT 95
[2023-02-01] MEDS: BACITRACIN 28 GM OINTMENT TP SCH ×2 (13:31→17:06)
[2023-02-01 13:58] VITALS: BP 126/74; PULSE 70; RESP 20; TEMP 98
[2023-02-01] MEDS: TraMADol HCL 50 MG TABLET PO PRN ×2 (14:06→22:22)
[2023-02-01] MEDS: ZOLPIDEM TARTRATE 10 MG TABLET PO PRN (21:12)
[2023-02-01 21:40] VITALS: BP 120/75; PULSE 75; RESP 18; TEMP 97.9; O2SAT 98
[2023-02-01 22:19] VITALS: BP 120/75; PULSE 70; RESP 18; TEMP 97.8; O2SAT 95
[2023-02-02] MEDS: GABAPENTIN 400 MG CAPSULE PO SCH ×4 (00:24→23:51)
[2023-02-02] MEDS: LORazepam 2 MG TABLET PO PRN (01:50)
[2023-02-02] MEDS: FERROUS SULFATE 325 MG EC TABLET PO SCH (06:22)
[2023-02-02] MEDS: LevETIRAcetam 500 MG TABLET PO SCH ×2 (08:02→16:00)
[2023-02-02] MEDS: FOLIC ACID 1 MG TABLET PO SCH (08:02)
[2023-02-02] MEDS: ATORVASTATIN CALCIUM 40 MG TABLET PO SCH (08:04)
[2023-02-02] MEDS: AmLODIPine BESYLATE 10 MG TABLET PO SCH (08:04)
[2023-02-02] MEDS: ASPIRIN 81 MG CHEWABLE TABLET PO SCH (08:04)
[2023-02-02] MEDS: PANTOPRAZOLE SODIUM 40 MG DR TABLET PO SCH ×2 (08:05→16:00)
[2023-02-02] MEDS: BACITRACIN 28 GM OINTMENT TP SCH ×2 (08:05→16:01)
[2023-02-02] MEDS: LISINOPRIL 10 MG TABLET PO SCH (08:06)
[2023-02-02] MEDS: CLOPIDOGREL BISULFATE 75 MG TABLET PO SCH (08:06)
[2023-02-02] MEDS: SERTRALINE HCL 100 MG TABLET PO SCH (08:09)
[2023-02-02 09:00] VITALS: BP 117/70; PULSE 62; RESP 18; TEMP 97.7; O2SAT 98
[2023-02-02 20:18] VITALS: BP 89/71; PULSE 63; RESP 18; TEMP 97.7; O2SAT 96
[2023-02-02] MEDS: ZOLPIDEM TARTRATE 10 MG TABLET PO PRN (20:56)
[2023-02-02 21:50] VITALS: RESP 18
[2023-02-02] MEDS: IBUPROFEN 400 MG TABLET PO PRN (21:56)
[2023-02-03 04:30] VITALS: BP 115/76; PULSE 61; RESP 18; TEMP 97.2; O2SAT 97
[2023-02-03 05:00] VITALS: BP 115/76; PULSE 61; RESP 18; TEMP 97.2; O2SAT 97
[2023-02-03] MEDS: FERROUS SULFATE 325 MG EC TABLET PO SCH (06:59)
[2023-02-03] MEDS: ATORVASTATIN CALCIUM 40 MG TABLET PO SCH (08:50)
[2023-02-03] MEDS: ASPIRIN 81 MG CHEWABLE TABLET PO SCH (08:50)
[2023-02-03] MEDS: GABAPENTIN 400 MG CAPSULE PO SCH ×3 (08:50→23:27)
[2023-02-03] MEDS: AmLODIPine BESYLATE 10 MG TABLET PO SCH (08:51)
[2023-02-03] MEDS: BACITRACIN 28 GM OINTMENT TP SCH ×2 (08:51→16:24)
[2023-02-03] MEDS: SERTRALINE HCL 100 MG TABLET PO SCH (08:51)
[2023-02-03] MEDS: PANTOPRAZOLE SODIUM 40 MG DR TABLET PO SCH ×2 (08:51→16:23)
[2023-02-03] MEDS: FOLIC ACID 1 MG TABLET PO SCH (08:51)
[2023-02-03] MEDS: LISINOPRIL 10 MG TABLET PO SCH (08:51)
[2023-02-03] MEDS: CLOPIDOGREL BISULFATE 75 MG TABLET PO SCH (08:51)
[2023-02-03] MEDS: LevETIRAcetam 500 MG TABLET PO SCH ×2 (08:51→16:23)
[2023-02-03 09:30] VITALS: BP 127/72; PULSE 61; RESP 18; TEMP 97.9; O2SAT 96
[2023-02-03] MEDS: TraMADol HCL 50 MG TABLET PO PRN (09:30)
[2023-02-03] MEDS: LORazepam 2 MG TABLET PO PRN (10:46)
[2023-02-03 21:00] VITALS: BP 101/65; PULSE 60; RESP 18; TEMP 98.9; O2SAT 95
[2023-02-03] MEDS: ZOLPIDEM TARTRATE 10 MG TABLET PO PRN (21:01)
[2023-02-03] MEDS: IBUPROFEN 400 MG TABLET PO PRN (21:01)
[2023-02-04] MEDS: FERROUS SULFATE 325 MG EC TABLET PO SCH (06:53)
[2023-02-04] MEDS: FOLIC ACID 1 MG TABLET PO SCH (08:19)
[2023-02-04] MEDS: ASPIRIN 81 MG CHEWABLE TABLET PO SCH (08:19)
[2023-02-04] MEDS: LevETIRAcetam 500 MG TABLET PO SCH ×2 (08:19→16:19)
[2023-02-04] MEDS: ATORVASTATIN CALCIUM 40 MG TABLET PO SCH (08:20)
[2023-02-04] MEDS: AmLODIPine BESYLATE 10 MG TABLET PO SCH (08:20)
[2023-02-04] MEDS: SERTRALINE HCL 100 MG TABLET PO SCH (08:20)
[2023-02-04] MEDS: LISINOPRIL 10 MG TABLET PO SCH (08:20)
[2023-02-04] MEDS: CLOPIDOGREL BISULFATE 75 MG TABLET PO SCH (08:20)
[2023-02-04] MEDS: GABAPENTIN 400 MG CAPSULE PO SCH ×3 (08:20→22:08)
[2023-02-04] MEDS: PANTOPRAZOLE SODIUM 40 MG DR TABLET PO SCH ×2 (08:20→16:19)
[2023-02-04] MEDS: BACITRACIN 28 GM OINTMENT TP SCH ×2 (08:21→16:20)
[2023-02-04 09:00] VITALS: BP 118/68; PULSE 60; RESP 18; TEMP 98.1; O2SAT 96
[2023-02-04 15:03] VITALS: BP 120/72; PULSE 67; RESP 19; TEMP 97.9; O2SAT 97
[2023-02-04] MEDS: TraMADol HCL 50 MG TABLET PO PRN (15:03)
[2023-02-04] MEDS: LORazepam 2 MG TABLET PO PRN (17:45)
[2023-02-04 20:23] VITALS: RESP 18
[2023-02-04] MEDS: ZOLPIDEM TARTRATE 10 MG TABLET PO PRN (22:08)
[2023-02-05] MEDS: GABAPENTIN 400 MG CAPSULE PO SCH ×3 (06:39→21:54)
[2023-02-05] MEDS: FERROUS SULFATE 325 MG EC TABLET PO SCH (06:46)
[2023-02-05 12:00] VITALS: RESP 18
[2023-02-05 12:48] VITALS: BP 136/64; PULSE 64; RESP 18; TEMP 97.9
[2023-02-05] MEDS: LevETIRAcetam 500 MG TABLET PO SCH ×2 (12:49→17:44)
[2023-02-05] MEDS: ASPIRIN 81 MG CHEWABLE TABLET PO SCH (12:49)
[2023-02-05] MEDS: ATORVASTATIN CALCIUM 40 MG TABLET PO SCH (12:50)
[2023-02-05] MEDS: SERTRALINE HCL 100 MG TABLET PO SCH (12:50)
[2023-02-05] MEDS: AmLODIPine BESYLATE 10 MG TABLET PO SCH (12:50)
[2023-02-05] MEDS: BACITRACIN 28 GM OINTMENT TP SCH ×2 (12:50→17:45)
[2023-02-05] MEDS: CLOPIDOGREL BISULFATE 75 MG TABLET PO SCH (12:50)
[2023-02-05] MEDS: PANTOPRAZOLE SODIUM 40 MG DR TABLET PO SCH ×2 (12:50→17:44)
[2023-02-05] MEDS: FOLIC ACID 1 MG TABLET PO SCH (12:50)
[2023-02-05] MEDS: LISINOPRIL 10 MG TABLET PO SCH (12:51)
[2023-02-05 14:39] VITALS: BP 125/62; PULSE 66; RESP 18
[2023-02-05] MEDS: TraMADol HCL 50 MG TABLET PO PRN (14:39)
[2023-02-05] MEDS: LORazepam 2 MG TABLET PO PRN (21:02)
[2023-02-05] MEDS: ZOLPIDEM TARTRATE 10 MG TABLET PO PRN (21:54)
[2023-02-05 22:02] VITALS: RESP 18
[2023-02-06] MEDS: GABAPENTIN 400 MG CAPSULE PO SCH ×5 (06:43→22:01)
[2023-02-06] MEDS: FERROUS SULFATE 325 MG EC TABLET PO SCH (06:44)
[2023-02-06 09:04] VITALS: BP 127/75; PULSE 76; RESP 18
[2023-02-06] MEDS: ATORVASTATIN CALCIUM 40 MG TABLET PO SCH (09:18)
[2023-02-06] MEDS: SERTRALINE HCL 100 MG TABLET PO SCH (09:18)
[2023-02-06] MEDS: LevETIRAcetam 500 MG TABLET PO SCH ×2 (09:18→16:28)
[2023-02-06] MEDS: LISINOPRIL 10 MG TABLET PO SCH (09:18)
[2023-02-06] MEDS: AmLODIPine BESYLATE 10 MG TABLET PO SCH (09:18)
[2023-02-06] MEDS: FOLIC ACID 1 MG TABLET PO SCH (09:18)
[2023-02-06] MEDS: ASPIRIN 81 MG CHEWABLE TABLET PO SCH (09:18)
[2023-02-06] MEDS: PANTOPRAZOLE SODIUM 40 MG DR TABLET PO SCH ×2 (09:18→16:28)
[2023-02-06] MEDS: CLOPIDOGREL BISULFATE 75 MG TABLET PO SCH (09:20)
[2023-02-06] MEDS: BACITRACIN 28 GM OINTMENT TP SCH (09:21)
[2023-02-06 13:55] VITALS: RESP 18
[2023-02-06] MEDS: IBUPROFEN 400 MG TABLET PO PRN (13:56)
[2023-02-06 14:56] VITALS: RESP 16
[2023-02-06] MEDS: LORazepam 2 MG TABLET PO PRN (20:43)
[2023-02-06 20:51] VITALS: BP 99/65; PULSE 68; RESP 18; TEMP 97.8; O2SAT 99
[2023-02-06] MEDS: ZOLPIDEM TARTRATE 10 MG TABLET PO PRN (22:01)
[2023-02-07] MEDS: LORazepam 2 MG TABLET PO PRN ×3 (02:03→21:22)
[2023-02-07] MEDS: GABAPENTIN 400 MG CAPSULE PO SCH ×3 (06:56→21:21)
[2023-02-07] MEDS: FERROUS SULFATE 325 MG EC TABLET PO SCH (06:56)
[2023-02-07] MEDS: ASPIRIN 81 MG CHEWABLE TABLET PO SCH (09:40)
[2023-02-07] MEDS: ATORVASTATIN CALCIUM 40 MG TABLET PO SCH (09:41)
[2023-02-07] MEDS: FOLIC ACID 1 MG TABLET PO SCH (09:41)
[2023-02-07] MEDS: CLOPIDOGREL BISULFATE 75 MG TABLET PO SCH (09:41)
[2023-02-07] MEDS: AmLODIPine BESYLATE 10 MG TABLET PO SCH (09:41)
[2023-02-07] MEDS: SERTRALINE HCL 100 MG TABLET PO SCH (09:41)
[2023-02-07] MEDS: LevETIRAcetam 500 MG TABLET PO SCH ×2 (09:42→17:27)
[2023-02-07] MEDS: PANTOPRAZOLE SODIUM 40 MG DR TABLET PO SCH ×2 (09:43→17:27)
[2023-02-07] MEDS: LISINOPRIL 10 MG TABLET PO SCH (09:44)
[2023-02-07] MEDS: BENZOCAINE 10% 7 GM GEL TP PRN (11:28)
[2023-02-07 12:39] VITALS: RESP 17
[2023-02-07 18:29] VITALS: BP 112/68; PULSE 69; RESP 17; TEMP 98
[2023-02-07] MEDS: IBUPROFEN 400 MG TABLET PO PRN (18:29)
[2023-02-07 19:22] VITALS: BP 117/69; PULSE 76; RESP 17; TEMP 97.8
[2023-02-07 20:25] VITALS: BP 120/61; PULSE 68; RESP 18; TEMP 96.9; O2SAT 97
[2023-02-07] MEDS: ZOLPIDEM TARTRATE 10 MG TABLET PO PRN (21:21)
[2023-02-08] MEDS: GABAPENTIN 400 MG CAPSULE PO SCH ×3 (06:39→22:00)
[2023-02-08] MEDS: FERROUS SULFATE 325 MG EC TABLET PO SCH (06:39)
[2023-02-08 09:10] VITALS: BP 115/64; PULSE 78; RESP 18; TEMP 97.2
[2023-02-08] MEDS: CLOPIDOGREL BISULFATE 75 MG TABLET PO SCH (09:13)
[2023-02-08] MEDS: LevETIRAcetam 500 MG TABLET PO SCH ×2 (09:13→17:00)
[2023-02-08] MEDS: PANTOPRAZOLE SODIUM 40 MG DR TABLET PO SCH ×2 (09:13→17:00)
[2023-02-08] MEDS: ATORVASTATIN CALCIUM 40 MG TABLET PO SCH (09:13)
[2023-02-08] MEDS: LISINOPRIL 10 MG TABLET PO SCH (09:13)
[2023-02-08] MEDS: SERTRALINE HCL 100 MG TABLET PO SCH (09:13)
[2023-02-08] MEDS: FOLIC ACID 1 MG TABLET PO SCH (09:14)
[2023-02-08] MEDS: AmLODIPine BESYLATE 10 MG TABLET PO SCH (09:15)
[2023-02-08] MEDS: ASPIRIN 81 MG CHEWABLE TABLET PO SCH (09:15)
[2023-02-08] MEDS: BENZOCAINE 10% 7 GM GEL TP PRN (13:42)
[2023-02-08 21:02] VITALS: BP 117/65; PULSE 89; RESP 18; TEMP 98.2; O2SAT 98
[2023-02-08] MEDS: ZOLPIDEM TARTRATE 10 MG TABLET PO PRN (22:00)
[2023-02-08 22:27] VITALS: RESP 18
[2023-02-08] MEDS: IBUPROFEN 400 MG TABLET PO PRN (22:30)
[2023-02-08] MEDS: LORazepam 2 MG TABLET PO PRN (22:30)
[2023-02-08 23:30] VITALS: RESP 18
[2023-02-09] MEDS: GABAPENTIN 400 MG CAPSULE PO SCH ×3 (06:00→21:03)
[2023-02-09] MEDS: FERROUS SULFATE 325 MG EC TABLET PO SCH (06:54)
[2023-02-09] MEDS: SERTRALINE HCL 100 MG TABLET PO SCH ×2 (09:00→10:26)
[2023-02-09] MEDS: LISINOPRIL 10 MG TABLET PO SCH (09:00)
[2023-02-09] MEDS: AmLODIPine BESYLATE 10 MG TABLET PO SCH (09:00)
[2023-02-09] MEDS: ASPIRIN 81 MG CHEWABLE TABLET PO SCH ×2 (09:00→10:25)
[2023-02-09] MEDS: CLOPIDOGREL BISULFATE 75 MG TABLET PO SCH ×2 (09:00→10:25)
[2023-02-09] MEDS: LevETIRAcetam 500 MG TABLET PO SCH ×3 (09:00→16:55)
[2023-02-09] MEDS: ATORVASTATIN CALCIUM 40 MG TABLET PO SCH ×2 (09:00→10:25)
[2023-02-09] MEDS: PANTOPRAZOLE SODIUM 40 MG DR TABLET PO SCH ×3 (09:00→16:55)
[2023-02-09] MEDS: FOLIC ACID 1 MG TABLET PO SCH ×2 (09:00→10:25)
[2023-02-09 09:30] VITALS: BP 102/59; PULSE 62; RESP 18; TEMP 97; O2SAT 97
[2023-02-09 13:29] VITALS: BP 139/81; PULSE 78; RESP 18; O2SAT 98
[2023-02-09] MEDS: TraMADol HCL 50 MG TABLET PO PRN ×2 (13:35→22:19)
[2023-02-09 14:35] VITALS: RESP 17
[2023-02-09 16:15] VITALS: BP 113/77; PULSE 66; RESP 18
[2023-02-09 20:09] VITALS: BP 117/69; PULSE 61; RESP 18; TEMP 98.3; O2SAT 98
[2023-02-09] MEDS: LORazepam 2 MG TABLET PO PRN (21:03)
[2023-02-09] MEDS: ZOLPIDEM TARTRATE 10 MG TABLET PO PRN (22:11)
[2023-02-09 22:19] VITALS: BP 119/71; RESP 18; TEMP 98.1; O2SAT 98
[2023-02-10] MEDS: GABAPENTIN 400 MG CAPSULE PO SCH ×3 (06:20→21:47)
[2023-02-10] MEDS: FERROUS SULFATE 325 MG EC TABLET PO SCH (06:33)
[2023-02-10] MEDS: LISINOPRIL 10 MG TABLET PO SCH (08:46)
[2023-02-10] MEDS: LevETIRAcetam 500 MG TABLET PO SCH ×2 (08:46→16:13)
[2023-02-10] MEDS: FOLIC ACID 1 MG TABLET PO SCH (08:47)
[2023-02-10] MEDS: PANTOPRAZOLE SODIUM 40 MG DR TABLET PO SCH ×2 (08:47→16:13)
[2023-02-10] MEDS: SERTRALINE HCL 100 MG TABLET PO SCH (08:47)
[2023-02-10] MEDS: ATORVASTATIN CALCIUM 40 MG TABLET PO SCH (08:47)
[2023-02-10] MEDS: CLOPIDOGREL BISULFATE 75 MG TABLET PO SCH (08:47)
[2023-02-10] MEDS: ASPIRIN 81 MG CHEWABLE TABLET PO SCH (08:47)
[2023-02-10] MEDS: AmLODIPine BESYLATE 10 MG TABLET PO SCH (08:47)
[2023-02-10 11:16] VITALS: BP 109/65; PULSE 67; RESP 18; TEMP 97.7; O2SAT 97
[2023-02-10] MEDS: IBUPROFEN 400 MG TABLET PO PRN (11:16)
[2023-02-10 15:20] VITALS: BP 111/67; PULSE 78; RESP 18; TEMP 98; O2SAT 98
[2023-02-10] MEDS: TraMADol HCL 50 MG TABLET PO PRN (15:20)
[2023-02-10] MEDS: BENZOCAINE 10% 7 GM GEL TP PRN (15:21)
[2023-02-10] MEDS: LORazepam 2 MG TABLET PO PRN (19:37)
[2023-02-10 21:26] VITALS: BP 120/80; PULSE 80; RESP 19; TEMP 97.5; O2SAT 98
[2023-02-10] MEDS: ZOLPIDEM TARTRATE 10 MG TABLET PO PRN (21:47)
[2023-02-11] MEDS: GABAPENTIN 400 MG CAPSULE PO SCH ×3 (06:43→22:21)
[2023-02-11] MEDS: FERROUS SULFATE 325 MG EC TABLET PO SCH (07:15)
[2023-02-11] MEDS: AmLODIPine BESYLATE 10 MG TABLET PO SCH (08:19)
[2023-02-11] MEDS: LISINOPRIL 10 MG TABLET PO SCH (08:21)
[2023-02-11] MEDS: FOLIC ACID 1 MG TABLET PO SCH (08:25)
[2023-02-11] MEDS: LevETIRAcetam 500 MG TABLET PO SCH ×2 (08:25→17:35)
[2023-02-11] MEDS: CLOPIDOGREL BISULFATE 75 MG TABLET PO SCH (08:25)
[2023-02-11] MEDS: SERTRALINE HCL 100 MG TABLET PO SCH (08:25)
[2023-02-11] MEDS: ASPIRIN 81 MG CHEWABLE TABLET PO SCH (08:25)
[2023-02-11] MEDS: ATORVASTATIN CALCIUM 40 MG TABLET PO SCH (08:26)
[2023-02-11] MEDS: PANTOPRAZOLE SODIUM 40 MG DR TABLET PO SCH ×2 (08:26→17:35)
[2023-02-11 08:30] VITALS: BP 80/50; PULSE 61; RESP 18; TEMP 97.7; O2SAT 95
[2023-02-11 08:45] VITALS: BP 86/50; RESP 18; O2SAT 95
[2023-02-11 12:53] VITALS: BP 104/59; PULSE 62; RESP 16; TEMP 98
[2023-02-11] MEDS: TraMADol HCL 50 MG TABLET PO PRN (12:53)
[2023-02-11 13:53] VITALS: BP 111/61; PULSE 68; RESP 17; TEMP 98
[2023-02-11] MEDS: BENZOCAINE 10% 7 GM GEL TP PRN (17:35)
[2023-02-11 20:27] VITALS: BP 121/68; PULSE 60; RESP 18; TEMP 98.3; O2SAT 97
[2023-02-11] MEDS: LORazepam 2 MG TABLET PO PRN (21:26)
[2023-02-11] MEDS: ZOLPIDEM TARTRATE 10 MG TABLET PO PRN (22:21)
[2023-02-12 02:25] VITALS: BP 107/65; PULSE 74; RESP 18; O2SAT 97
[2023-02-12] MEDS: LORazepam 2 MG TABLET PO PRN ×2 (02:30→20:01)
[2023-02-12] MEDS: GABAPENTIN 400 MG CAPSULE PO SCH ×3 (06:40→22:17)
[2023-02-12] MEDS: FERROUS SULFATE 325 MG EC TABLET PO SCH (06:40)
[2023-02-12 08:15] VITALS: BP 116/69; PULSE 61; RESP 16; TEMP 97.2; O2SAT 97
[2023-02-12] MEDS: ASPIRIN 81 MG CHEWABLE TABLET PO SCH (09:36)
[2023-02-12] MEDS: CLOPIDOGREL BISULFATE 75 MG TABLET PO SCH (09:36)
[2023-02-12] MEDS: FOLIC ACID 1 MG TABLET PO SCH (09:36)
[2023-02-12] MEDS: ATORVASTATIN CALCIUM 40 MG TABLET PO SCH (09:36)
[2023-02-12] MEDS: LevETIRAcetam 500 MG TABLET PO SCH ×2 (09:36→17:46)
[2023-02-12] MEDS: PANTOPRAZOLE SODIUM 40 MG DR TABLET PO SCH ×2 (09:36→17:46)
[2023-02-12] MEDS: SERTRALINE HCL 100 MG TABLET PO SCH (09:36)
[2023-02-12 21:20] VITALS: RESP 18
[2023-02-12] MEDS: ZOLPIDEM TARTRATE 10 MG TABLET PO PRN (22:17)
[2023-02-13] MEDS: LORazepam 2 MG TABLET PO PRN ×2 (03:58→20:47)
[2023-02-13] MEDS: TraMADol HCL 50 MG TABLET PO PRN (05:35)
[2023-02-13] MEDS: GABAPENTIN 400 MG CAPSULE PO SCH ×3 (06:05→21:30)
[2023-02-13] MEDS: FERROUS SULFATE 325 MG EC TABLET PO SCH (06:42)
[2023-02-13] MEDS: LevETIRAcetam 500 MG TABLET PO SCH ×2 (09:11→16:18)
[2023-02-13] MEDS: FOLIC ACID 1 MG TABLET PO SCH (09:11)
[2023-02-13] MEDS: PANTOPRAZOLE SODIUM 40 MG DR TABLET PO SCH ×2 (09:12→16:18)
[2023-02-13] MEDS: SERTRALINE HCL 100 MG TABLET PO SCH (09:12)
[2023-02-13] MEDS: ATORVASTATIN CALCIUM 40 MG TABLET PO SCH (09:12)
[2023-02-13] MEDS: ASPIRIN 81 MG CHEWABLE TABLET PO SCH (09:13)
[2023-02-13] MEDS: CLOPIDOGREL BISULFATE 75 MG TABLET PO SCH (09:13)
[2023-02-13] MEDS: IBUPROFEN 400 MG TABLET PO PRN (09:41)
[2023-02-13 11:13] VITALS: BP 99/57; PULSE 65; RESP 18; TEMP 97.6; O2SAT 97
[2023-02-13] MEDS: ZOLPIDEM TARTRATE 10 MG TABLET PO PRN (21:30)
[2023-02-13 21:50] VITALS: BP 156/85; PULSE 62; RESP 18; TEMP 97.6; O2SAT 99
[2023-02-14] MEDS: GABAPENTIN 400 MG CAPSULE PO SCH ×3 (06:00→22:00)
[2023-02-14] MEDS: FERROUS SULFATE 325 MG EC TABLET PO SCH (06:34)
[2023-02-14] MEDS: SERTRALINE HCL 100 MG TABLET PO SCH (08:44)
[2023-02-14] MEDS: PANTOPRAZOLE SODIUM 40 MG DR TABLET PO SCH ×2 (08:44→16:48)
[2023-02-14] MEDS: CLOPIDOGREL BISULFATE 75 MG TABLET PO SCH (08:44)
[2023-02-14] MEDS: ATORVASTATIN CALCIUM 40 MG TABLET PO SCH (08:44)
[2023-02-14] MEDS: ASPIRIN 81 MG CHEWABLE TABLET PO SCH (08:45)
[2023-02-14] MEDS: LevETIRAcetam 500 MG TABLET PO SCH ×2 (08:46→16:48)
[2023-02-14] MEDS: FOLIC ACID 1 MG TABLET PO SCH (08:46)
[2023-02-14 11:56] VITALS: RESP 18
[2023-02-14 12:21] VITALS: BP 118/69; PULSE 63; RESP 18; TEMP 98.6
[2023-02-14] MEDS: IBUPROFEN 400 MG TABLET PO PRN (12:21)
[2023-02-14 13:21] VITALS: BP 134/57; RESP 18; TEMP 98.2
[2023-02-14 20:08] VITALS: BP 124/74; PULSE 61; RESP 18; TEMP 98; O2SAT 99
[2023-02-14] MEDS: ZOLPIDEM TARTRATE 10 MG TABLET PO PRN (21:58)
[2023-02-14] MEDS: LORazepam 2 MG TABLET PO PRN (21:58)
[2023-02-14] MEDS: TraMADol HCL 50 MG TABLET PO PRN (22:00)
[2023-02-15] MEDS: FERROUS SULFATE 325 MG EC TABLET PO SCH (07:07)
[2023-02-15] MEDS: GABAPENTIN 400 MG CAPSULE PO SCH ×3 (07:08→22:14)
[2023-02-15] MEDS: ATORVASTATIN CALCIUM 40 MG TABLET PO SCH (09:17)
[2023-02-15] MEDS: LevETIRAcetam 500 MG TABLET PO SCH ×2 (09:17→16:17)
[2023-02-15] MEDS: PANTOPRAZOLE SODIUM 40 MG DR TABLET PO SCH ×2 (09:17→16:17)
[2023-02-15] MEDS: SERTRALINE HCL 100 MG TABLET PO SCH (09:17)
[2023-02-15] MEDS: CLOPIDOGREL BISULFATE 75 MG TABLET PO SCH (09:17)
[2023-02-15] MEDS: FOLIC ACID 1 MG TABLET PO SCH (09:17)
[2023-02-15] MEDS: ASPIRIN 81 MG CHEWABLE TABLET PO SCH (09:18)
[2023-02-15 12:55] VITALS: RESP 18
[2023-02-15] MEDS: NYSTATIN 15 GM POWDER BOTTLE TP SCH (14:05)
[2023-02-15 14:16] VITALS: BP 154/84; PULSE 63; RESP 18; TEMP 97.8; O2SAT 98
[2023-02-15] MEDS: TraMADol HCL 50 MG TABLET PO PRN (14:20)
[2023-02-15 15:20] VITALS: RESP 18
[2023-02-15 20:36] VITALS: BP 125/79; PULSE 61; RESP 18; TEMP 97.7; O2SAT 99
[2023-02-15] MEDS: ZOLPIDEM TARTRATE 10 MG TABLET PO PRN (20:51)
[2023-02-16] MEDS: GABAPENTIN 400 MG CAPSULE PO SCH ×3 (06:47→21:59)
[2023-02-16] MEDS: FERROUS SULFATE 325 MG EC TABLET PO SCH (06:47)
[2023-02-16 08:15] VITALS: BP 112/59; PULSE 64; RESP 18; TEMP 97.6; O2SAT 97
[2023-02-16] MEDS: NYSTATIN 15 GM POWDER BOTTLE TP SCH (10:04)
[2023-02-16] MEDS: LevETIRAcetam 500 MG TABLET PO SCH ×2 (10:04→17:01)
[2023-02-16] MEDS: PANTOPRAZOLE SODIUM 40 MG DR TABLET PO SCH ×2 (10:04→17:01)
[2023-02-16] MEDS: ASPIRIN 81 MG CHEWABLE TABLET PO SCH (10:04)
[2023-02-16] MEDS: SERTRALINE HCL 100 MG TABLET PO SCH (10:04)
[2023-02-16] MEDS: ATORVASTATIN CALCIUM 40 MG TABLET PO SCH (10:04)
[2023-02-16] MEDS: FOLIC ACID 1 MG TABLET PO SCH (10:04)
[2023-02-16] MEDS: CLOPIDOGREL BISULFATE 75 MG TABLET PO SCH (10:04)
[2023-02-16 11:30] VITALS: RESP 18
[2023-02-16] MEDS: TraMADol HCL 50 MG TABLET PO PRN (11:33)
[2023-02-16 12:33] VITALS: RESP 16
[2023-02-16 15:07] VITALS: BP 139/78; PULSE 63; RESP 18
[2023-02-16] MEDS: LORazepam 2 MG TABLET PO PRN (15:08)
[2023-02-16 20:15] VITALS: BP 128/74; PULSE 67; RESP 17; TEMP 97.7
[2023-02-16] MEDS: IBUPROFEN 400 MG TABLET PO PRN (20:19)
[2023-02-16] MEDS: ZOLPIDEM TARTRATE 10 MG TABLET PO PRN (20:19)
[2023-02-16 21:15] VITALS: RESP 18
[2023-02-17] MEDS: LORazepam 2 MG TABLET PO PRN ×3 (04:15→21:50)
[2023-02-17] MEDS: GABAPENTIN 400 MG CAPSULE PO SCH ×3 (06:00→21:50)
[2023-02-17] MEDS: FERROUS SULFATE 325 MG EC TABLET PO SCH (07:05)
[2023-02-17] MEDS: LevETIRAcetam 500 MG TABLET PO SCH ×2 (10:30→17:52)
[2023-02-17] MEDS: FOLIC ACID 1 MG TABLET PO SCH (10:31)
[2023-02-17] MEDS: ATORVASTATIN CALCIUM 40 MG TABLET PO SCH (10:31)
[2023-02-17] MEDS: PANTOPRAZOLE SODIUM 40 MG DR TABLET PO SCH ×2 (10:31→17:52)
[2023-02-17] MEDS: SERTRALINE HCL 100 MG TABLET PO SCH (10:31)
[2023-02-17] MEDS: ASPIRIN 81 MG CHEWABLE TABLET PO SCH (10:31)
[2023-02-17] MEDS: CLOPIDOGREL BISULFATE 75 MG TABLET PO SCH (10:31)
[2023-02-17] MEDS: NYSTATIN 15 GM POWDER BOTTLE TP SCH (10:31)
[2023-02-17 11:08] VITALS: BP 111/67; PULSE 67; RESP 17; TEMP 97.9; O2SAT 97
[2023-02-17] MEDS: TraMADol HCL 50 MG TABLET PO PRN (11:08)
[2023-02-17 11:10] VITALS: BP 123/76; PULSE 68; RESP 18; TEMP 97.9; O2SAT 96
[2023-02-17 12:08] VITALS: BP 122/71; PULSE 71; RESP 17; TEMP 98
[2023-02-17 20:51] VITALS: BP 132/71; PULSE 61; RESP 18; TEMP 97.9
[2023-02-17] MEDS: ZOLPIDEM TARTRATE 10 MG TABLET PO PRN (21:50)
[2023-02-18] MEDS: GABAPENTIN 400 MG CAPSULE PO SCH ×3 (06:29→21:57)
[2023-02-18] MEDS: FERROUS SULFATE 325 MG EC TABLET PO SCH (07:06)
[2023-02-18] MEDS: CLOPIDOGREL BISULFATE 75 MG TABLET PO SCH (08:50)
[2023-02-18] MEDS: SERTRALINE HCL 100 MG TABLET PO SCH (08:50)
[2023-02-18] MEDS: PANTOPRAZOLE SODIUM 40 MG DR TABLET PO SCH ×2 (08:50→16:34)
[2023-02-18] MEDS: LevETIRAcetam 500 MG TABLET PO SCH ×2 (08:50→16:34)
[2023-02-18] MEDS: FOLIC ACID 1 MG TABLET PO SCH (08:51)
[2023-02-18] MEDS: ASPIRIN 81 MG CHEWABLE TABLET PO SCH (08:51)
[2023-02-18] MEDS: NYSTATIN 15 GM POWDER BOTTLE TP SCH (08:52)
[2023-02-18] MEDS: ATORVASTATIN CALCIUM 40 MG TABLET PO SCH (08:55)
[2023-02-18 09:31] VITALS: BP 115/57; PULSE 63; RESP 16; TEMP 97.7
[2023-02-18 09:57] VITALS: BP 115/57; PULSE 63; RESP 16; TEMP 97.7; O2SAT 96
[2023-02-18 10:31] VITALS: BP 90/53; PULSE 60; RESP 16; TEMP 97.4
[2023-02-18] MEDS: QUEtiapine FUMARATE 100 MG TABLET PO PRN ×2 (10:44→15:43)
[2023-02-18] MEDS: TraMADol HCL 50 MG TABLET PO PRN (10:45)
[2023-02-18 10:46] VITALS: BP 118/65; PULSE 65; RESP 18; TEMP 98.2
[2023-02-18 21:02] VITALS: RESP 18
[2023-02-18] MEDS: ZOLPIDEM TARTRATE 10 MG TABLET PO PRN (22:06)
[2023-02-19] MEDS: GABAPENTIN 400 MG CAPSULE PO SCH ×3 (06:00→21:35)
[2023-02-19] MEDS: FERROUS SULFATE 325 MG EC TABLET PO SCH (07:06)
[2023-02-19] MEDS: ATORVASTATIN CALCIUM 40 MG TABLET PO SCH ×2 (09:00→11:00)
[2023-02-19] MEDS: PANTOPRAZOLE SODIUM 40 MG DR TABLET PO SCH ×3 (09:00→16:23)
[2023-02-19] MEDS: CLOPIDOGREL BISULFATE 75 MG TABLET PO SCH ×2 (09:00→11:00)
[2023-02-19] MEDS: LevETIRAcetam 500 MG TABLET PO SCH ×3 (09:00→16:23)
[2023-02-19] MEDS: SERTRALINE HCL 100 MG TABLET PO SCH ×2 (09:00→11:01)
[2023-02-19] MEDS: NYSTATIN 15 GM POWDER BOTTLE TP SCH ×2 (09:00→11:00)
[2023-02-19] MEDS: FOLIC ACID 1 MG TABLET PO SCH ×2 (09:00→11:00)
[2023-02-19] MEDS: ASPIRIN 81 MG CHEWABLE TABLET PO SCH ×2 (09:00→11:01)
[2023-02-19 10:55] VITALS: BP 156/90; PULSE 60; RESP 18; TEMP 98.6
[2023-02-19] MEDS: TraMADol HCL 50 MG TABLET PO PRN (10:57)
[2023-02-19 11:57] VITALS: RESP 17
[2023-02-19 13:37] VITALS: BP 135/78; PULSE 60; RESP 18
[2023-02-19] MEDS: LORazepam 2 MG TABLET PO PRN ×2 (13:38→19:27)
[2023-02-19 20:53] VITALS: BP 137/79; PULSE 62; RESP 18; TEMP 97.6; O2SAT 98
[2023-02-19] MEDS: ZOLPIDEM TARTRATE 10 MG TABLET PO PRN (21:01)
[2023-02-19] MEDS: QUEtiapine FUMARATE 100 MG TABLET PO PRN (22:15)
[2023-02-20] MEDS: FERROUS SULFATE 325 MG EC TABLET PO SCH (06:54)
[2023-02-20] MEDS: GABAPENTIN 400 MG CAPSULE PO SCH ×3 (06:55→21:48)
[2023-02-20 08:22] VITALS: RESP 17
[2023-02-20] MEDS: SERTRALINE HCL 100 MG TABLET PO SCH (08:39)
[2023-02-20] MEDS: LevETIRAcetam 500 MG TABLET PO SCH ×2 (08:39→16:25)
[2023-02-20] MEDS: ATORVASTATIN CALCIUM 40 MG TABLET PO SCH (08:39)
[2023-02-20] MEDS: PANTOPRAZOLE SODIUM 40 MG DR TABLET PO SCH ×2 (08:39→16:24)
[2023-02-20] MEDS: ASPIRIN 81 MG CHEWABLE TABLET PO SCH (08:39)
[2023-02-20] MEDS: FOLIC ACID 1 MG TABLET PO SCH (08:39)
[2023-02-20] MEDS: CLOPIDOGREL BISULFATE 75 MG TABLET PO SCH (08:39)
[2023-02-20] MEDS: NYSTATIN 15 GM POWDER BOTTLE TP SCH (09:00)
[2023-02-20] MEDS: LORazepam 2 MG TABLET PO PRN ×2 (12:55→19:23)
[2023-02-20] MEDS: TraMADol HCL 50 MG TABLET PO PRN (12:55)
[2023-02-20 21:09] VITALS: BP 115/65; PULSE 62; RESP 18; TEMP 97.6
[2023-02-20] MEDS: ZOLPIDEM TARTRATE 10 MG TABLET PO PRN (21:47)
[2023-02-21] MEDS: GABAPENTIN 400 MG CAPSULE PO SCH ×3 (06:52→21:38)
[2023-02-21] MEDS: FERROUS SULFATE 325 MG EC TABLET PO SCH (06:52)
[2023-02-21] MEDS: ASPIRIN 81 MG CHEWABLE TABLET PO SCH (08:40)
[2023-02-21] MEDS: CLOPIDOGREL BISULFATE 75 MG TABLET PO SCH (08:40)
[2023-02-21] MEDS: LevETIRAcetam 500 MG TABLET PO SCH ×2 (08:40→16:17)
[2023-02-21] MEDS: ATORVASTATIN CALCIUM 40 MG TABLET PO SCH (08:40)
[2023-02-21] MEDS: PANTOPRAZOLE SODIUM 40 MG DR TABLET PO SCH ×2 (08:40→16:16)
[2023-02-21] MEDS: FOLIC ACID 1 MG TABLET PO SCH (08:40)
[2023-02-21] MEDS: SERTRALINE HCL 100 MG TABLET PO SCH (08:40)
[2023-02-21] MEDS: LORazepam 2 MG TABLET PO PRN ×3 (12:17→20:49)
[2023-02-21] MEDS: TraMADol HCL 50 MG TABLET PO PRN (12:17)
[2023-02-21] MEDS: NYSTATIN 15 GM POWDER BOTTLE TP SCH (12:18)
[2023-02-21] MEDS: IBUPROFEN 400 MG TABLET PO PRN (16:00)
[2023-02-21 21:03] VITALS: RESP 18
[2023-02-22] MEDS: ZOLPIDEM TARTRATE 10 MG TABLET PO PRN ×2 (00:11→22:10)
[2023-02-22] MEDS: GABAPENTIN 400 MG CAPSULE PO SCH ×3 (07:06→22:10)
[2023-02-22] MEDS: FERROUS SULFATE 325 MG EC TABLET PO SCH (07:06)
[2023-02-22] MEDS: SERTRALINE HCL 100 MG TABLET PO SCH (08:21)
[2023-02-22] MEDS: ASPIRIN 81 MG CHEWABLE TABLET PO SCH (08:21)
[2023-02-22] MEDS: PANTOPRAZOLE SODIUM 40 MG DR TABLET PO SCH ×2 (08:21→16:32)
[2023-02-22] MEDS: FOLIC ACID 1 MG TABLET PO SCH (08:22)
[2023-02-22] MEDS: LevETIRAcetam 500 MG TABLET PO SCH ×2 (08:22→16:32)
[2023-02-22] MEDS: CLOPIDOGREL BISULFATE 75 MG TABLET PO SCH (08:22)
[2023-02-22] MEDS: ATORVASTATIN CALCIUM 40 MG TABLET PO SCH (08:22)
[2023-02-22 09:24] VITALS: BP 145/76; PULSE 71; RESP 17; TEMP 97.4; O2SAT 98
[2023-02-22] MEDS: NYSTATIN 15 GM POWDER BOTTLE TP SCH (11:25)
[2023-02-22 12:00] VITALS: BP 112/64; PULSE 60; RESP 18; TEMP 97.8; O2SAT 98
[2023-02-22] MEDS: TraMADol HCL 50 MG TABLET PO PRN ×2 (13:10→22:09)
[2023-02-22] MEDS: LORazepam 2 MG TABLET PO PRN ×2 (13:10→20:49)
[2023-02-22] MEDS: IBUPROFEN 400 MG TABLET PO PRN (14:29)
[2023-02-22 14:34] VITALS: BP 112/64; PULSE 60; RESP 16; TEMP 98; O2SAT 97
[2023-02-22 20:33] VITALS: RESP 18
[2023-02-22 22:05] VITALS: BP 130/82; PULSE 72; RESP 20; TEMP 97.3; O2SAT 98
[2023-02-22 23:09] VITALS: RESP 18
[2023-02-23] MEDS: QUEtiapine FUMARATE 100 MG TABLET PO PRN ×2 (05:23→18:03)
[2023-02-23] MEDS: GABAPENTIN 400 MG CAPSULE PO SCH ×4 (06:30→22:32)
[2023-02-23] MEDS: FERROUS SULFATE 325 MG EC TABLET PO SCH (06:57)
[2023-02-23 07:26] LABS: CHOL/HDL RATIO 2.8 (4.2-7.3)
[2023-02-23] MEDS: ASPIRIN 81 MG CHEWABLE TABLET PO SCH (09:41)
[2023-02-23] MEDS: SERTRALINE HCL 100 MG TABLET PO SCH (09:41)
[2023-02-23] MEDS: FOLIC ACID 1 MG TABLET PO SCH (09:42)
[2023-02-23] MEDS: PANTOPRAZOLE SODIUM 40 MG DR TABLET PO SCH ×2 (09:42→16:49)
[2023-02-23] MEDS: LevETIRAcetam 500 MG TABLET PO SCH ×2 (09:42→16:49)
[2023-02-23] MEDS: CLOPIDOGREL BISULFATE 75 MG TABLET PO SCH (09:42)
[2023-02-23] MEDS: ATORVASTATIN CALCIUM 40 MG TABLET PO SCH (09:42)
[2023-02-23] MEDS: NYSTATIN 15 GM POWDER BOTTLE TP SCH (10:02)
[2023-02-23 11:24] VITALS: BP 114/63; PULSE 68; RESP 18; TEMP 98.1; O2SAT 99
[2023-02-23] MEDS: LORazepam 2 MG TABLET PO PRN (14:54)
[2023-02-23] MEDS: IBUPROFEN 400 MG TABLET PO PRN (14:55)
[2023-02-23 20:27] VITALS: RESP 18
[2023-02-24] MEDS: GABAPENTIN 400 MG CAPSULE PO SCH ×4 (05:13→22:02)
[2023-02-24] MEDS: FERROUS SULFATE 325 MG EC TABLET PO SCH (06:46)
[2023-02-24 08:52] VITALS: RESP 18
[2023-02-24] MEDS: NYSTATIN 15 GM POWDER BOTTLE TP SCH (10:00)
[2023-02-24] MEDS: PANTOPRAZOLE SODIUM 40 MG DR TABLET PO SCH ×2 (11:11→16:16)
[2023-02-24] MEDS: SERTRALINE HCL 100 MG TABLET PO SCH (11:11)
[2023-02-24] MEDS: FOLIC ACID 1 MG TABLET PO SCH (11:12)
[2023-02-24] MEDS: ASPIRIN 81 MG CHEWABLE TABLET PO SCH (11:12)
[2023-02-24] MEDS: ATORVASTATIN CALCIUM 40 MG TABLET PO SCH (11:12)
[2023-02-24] MEDS: LevETIRAcetam 500 MG TABLET PO SCH ×2 (11:12→16:16)
[2023-02-24] MEDS: CLOPIDOGREL BISULFATE 75 MG TABLET PO SCH (11:12)
[2023-02-24] MEDS: LORazepam 2 MG TABLET PO PRN ×2 (13:00→18:49)
[2023-02-24 21:45] VITALS: RESP 18
[2023-02-24] MEDS: ZOLPIDEM TARTRATE 10 MG TABLET PO PRN (22:02)
[2023-02-25] MEDS: LORazepam 2 MG TABLET PO PRN ×2 (03:28→11:21)
[2023-02-25] MEDS: GABAPENTIN 400 MG CAPSULE PO SCH ×3 (06:00→22:00)
[2023-02-25] MEDS: FERROUS SULFATE 325 MG EC TABLET PO SCH (06:52)
[2023-02-25] MEDS: PANTOPRAZOLE SODIUM 40 MG DR TABLET PO SCH ×2 (09:00→16:22)
[2023-02-25] MEDS: ASPIRIN 81 MG CHEWABLE TABLET PO SCH (09:00)
[2023-02-25] MEDS: SERTRALINE HCL 100 MG TABLET PO SCH (09:00)
[2023-02-25] MEDS: ATORVASTATIN CALCIUM 40 MG TABLET PO SCH (09:00)
[2023-02-25] MEDS: CLOPIDOGREL BISULFATE 75 MG TABLET PO SCH (09:00)
[2023-02-25] MEDS: NYSTATIN 15 GM POWDER BOTTLE TP SCH (09:00)
[2023-02-25] MEDS: FOLIC ACID 1 MG TABLET PO SCH (09:00)
[2023-02-25] MEDS: LevETIRAcetam 500 MG TABLET PO SCH ×2 (09:00→16:22)
[2023-02-25] MEDS: QUEtiapine FUMARATE 100 MG TABLET PO PRN ×2 (13:00→14:20)
[2023-02-25 13:11] VITALS: RESP 17
[2023-02-25 21:00] VITALS: RESP 18
[2023-02-26] MEDS: GABAPENTIN 400 MG CAPSULE PO SCH ×3 (06:00→21:54)
[2023-02-26] MEDS: FERROUS SULFATE 325 MG EC TABLET PO SCH (06:39)
[2023-02-26] MEDS: ASPIRIN 81 MG CHEWABLE TABLET PO SCH (08:29)
[2023-02-26] MEDS: PANTOPRAZOLE SODIUM 40 MG DR TABLET PO SCH ×2 (08:29→17:46)
[2023-02-26] MEDS: FOLIC ACID 1 MG TABLET PO SCH (08:29)
[2023-02-26] MEDS: ATORVASTATIN CALCIUM 40 MG TABLET PO SCH (08:30)
[2023-02-26] MEDS: LevETIRAcetam 500 MG TABLET PO SCH ×2 (08:30→17:46)
[2023-02-26] MEDS: SERTRALINE HCL 100 MG TABLET PO SCH (08:30)
[2023-02-26] MEDS: CLOPIDOGREL BISULFATE 75 MG TABLET PO SCH (08:30)
[2023-02-26] MEDS: QUEtiapine FUMARATE 100 MG TABLET PO PRN (08:30)
[2023-02-26] MEDS: NYSTATIN 15 GM POWDER BOTTLE TP SCH (09:00)
[2023-02-26 10:25] VITALS: RESP 17
[2023-02-26] MEDS: TraMADol HCL 50 MG TABLET PO PRN (13:34)
[2023-02-26] MEDS: LORazepam 2 MG TABLET PO PRN (13:34)
[2023-02-26 20:07] VITALS: RESP 18
[2023-02-26] MEDS: QUEtiapine FUMARATE 100 MG TABLET PO SCH (20:50)
[2023-02-26] MEDS: ZOLPIDEM TARTRATE 10 MG TABLET PO PRN (21:23)
[2023-02-27] MEDS: FERROUS SULFATE 325 MG EC TABLET PO SCH (06:43)
[2023-02-27] MEDS: GABAPENTIN 400 MG CAPSULE PO SCH ×3 (06:43→22:02)
[2023-02-27] MEDS: ATORVASTATIN CALCIUM 40 MG TABLET PO SCH (08:05)
[2023-02-27] MEDS: LevETIRAcetam 500 MG TABLET PO SCH ×2 (08:05→17:10)
[2023-02-27] MEDS: CLOPIDOGREL BISULFATE 75 MG TABLET PO SCH (08:05)
[2023-02-27] MEDS: SERTRALINE HCL 100 MG TABLET PO SCH (08:05)
[2023-02-27] MEDS: FOLIC ACID 1 MG TABLET PO SCH (08:06)
[2023-02-27] MEDS: ASPIRIN 81 MG CHEWABLE TABLET PO SCH (08:06)
[2023-02-27] MEDS: PANTOPRAZOLE SODIUM 40 MG DR TABLET PO SCH ×2 (08:06→17:10)
[2023-02-27] MEDS: NYSTATIN 15 GM POWDER BOTTLE TP SCH (10:17)
[2023-02-27 14:13] VITALS: RESP 17
[2023-02-27 16:00] VITALS: BP 132/70; PULSE 68; RESP 20; TEMP 98; O2SAT 96
[2023-02-27] MEDS: TraMADol HCL 50 MG TABLET PO PRN (16:04)
[2023-02-27] MEDS: LORazepam 2 MG TABLET PO PRN ×2 (16:05→20:31)
[2023-02-27] MEDS: QUEtiapine FUMARATE 100 MG TABLET PO SCH (20:30)
[2023-02-27 21:12] VITALS: RESP 18
[2023-02-27] MEDS: ZOLPIDEM TARTRATE 10 MG TABLET PO PRN (22:02)
[2023-02-28] MEDS: GABAPENTIN 400 MG CAPSULE PO SCH ×3 (06:32→22:15)
[2023-02-28] MEDS: FERROUS SULFATE 325 MG EC TABLET PO SCH (06:32)
[2023-02-28] MEDS: LevETIRAcetam 500 MG TABLET PO SCH ×2 (08:29→16:44)
[2023-02-28] MEDS: FOLIC ACID 1 MG TABLET PO SCH (08:29)
[2023-02-28] MEDS: SERTRALINE HCL 100 MG TABLET PO SCH (08:29)
[2023-02-28] MEDS: CLOPIDOGREL BISULFATE 75 MG TABLET PO SCH (08:29)
[2023-02-28] MEDS: PANTOPRAZOLE SODIUM 40 MG DR TABLET PO SCH ×2 (08:29→16:44)
[2023-02-28] MEDS: ATORVASTATIN CALCIUM 40 MG TABLET PO SCH (08:29)
[2023-02-28] MEDS: ASPIRIN 81 MG CHEWABLE TABLET PO SCH (08:30)
[2023-02-28] MEDS: NYSTATIN 15 GM POWDER BOTTLE TP SCH (12:58)
[2023-02-28 13:57] VITALS: BP 139/79; PULSE 66; RESP 16; TEMP 97.7; O2SAT 98
[2023-02-28] MEDS: LORazepam 2 MG TABLET PO PRN ×2 (14:26→19:18)
[2023-02-28] MEDS: TraMADol HCL 50 MG TABLET PO PRN (14:26)
[2023-02-28] MEDS: QUEtiapine FUMARATE 100 MG TABLET PO SCH (20:20)
[2023-02-28 22:07] VITALS: BP 143/79; PULSE 61; RESP 18; TEMP 97.8; O2SAT 96
[2023-02-28] MEDS: ZOLPIDEM TARTRATE 10 MG TABLET PO PRN (22:15)
[2023-03-01] MEDS: GABAPENTIN 400 MG CAPSULE PO SCH ×3 (06:41→22:03)
[2023-03-01] MEDS: FERROUS SULFATE 325 MG EC TABLET PO SCH (06:41)
[2023-03-01 08:43] VITALS: BP 136/70; PULSE 65; RESP 15; TEMP 98; O2SAT 98
[2023-03-01] MEDS: CLOPIDOGREL BISULFATE 75 MG TABLET PO SCH (09:16)
[2023-03-01] MEDS: FOLIC ACID 1 MG TABLET PO SCH (09:16)
[2023-03-01] MEDS: SERTRALINE HCL 100 MG TABLET PO SCH (09:16)
[2023-03-01] MEDS: LevETIRAcetam 500 MG TABLET PO SCH ×2 (09:16→16:51)
[2023-03-01] MEDS: ATORVASTATIN CALCIUM 40 MG TABLET PO SCH (09:16)
[2023-03-01] MEDS: ASPIRIN 81 MG CHEWABLE TABLET PO SCH (09:17)
[2023-03-01] MEDS: PANTOPRAZOLE SODIUM 40 MG DR TABLET PO SCH ×2 (09:21→16:52)
[2023-03-01] MEDS: NYSTATIN 15 GM POWDER BOTTLE TP SCH (09:22)
[2023-03-01] MEDS: LORazepam 2 MG TABLET PO PRN (14:32)
[2023-03-01] MEDS: TraMADol HCL 50 MG TABLET PO PRN (14:33)
[2023-03-01 14:37] VITALS: BP 132/72; PULSE 65; RESP 18; TEMP 97.8; O2SAT 96
[2023-03-01 20:06] VITALS: BP 120/73; PULSE 62; RESP 18; TEMP 98.4; O2SAT 98
[2023-03-01] MEDS: TraZODone HCL 50 MG TABLET PO SCH (21:02)
[2023-03-02] MEDS: GABAPENTIN 400 MG CAPSULE PO SCH ×3 (06:31→21:23)
[2023-03-02] MEDS: LORazepam 2 MG TABLET PO PRN ×2 (06:43→20:15)
[2023-03-02] MEDS: FERROUS SULFATE 325 MG EC TABLET PO SCH (06:51)
[2023-03-02] MEDS: LevETIRAcetam 500 MG TABLET PO SCH ×2 (10:14→16:33)
[2023-03-02] MEDS: FOLIC ACID 1 MG TABLET PO SCH (10:14)
[2023-03-02] MEDS: ASPIRIN 81 MG CHEWABLE TABLET PO SCH (10:15)
[2023-03-02] MEDS: CLOPIDOGREL BISULFATE 75 MG TABLET PO SCH (10:15)
[2023-03-02] MEDS: ATORVASTATIN CALCIUM 40 MG TABLET PO SCH (10:15)
[2023-03-02] MEDS: SERTRALINE HCL 100 MG TABLET PO SCH (10:15)
[2023-03-02] MEDS: PANTOPRAZOLE SODIUM 40 MG DR TABLET PO SCH ×2 (10:15→16:33)
[2023-03-02] MEDS: NYSTATIN 15 GM POWDER BOTTLE TP SCH (10:16)
[2023-03-02 11:30] VITALS: BP 120/66; PULSE 60; RESP 18; TEMP 97.5; O2SAT 96
[2023-03-02] MEDS: TraZODone HCL 50 MG TABLET PO SCH (20:15)
[2023-03-02 20:21] VITALS: BP 116/67; PULSE 66; RESP 18; TEMP 98.2; O2SAT 99
[2023-03-02] MEDS: ZOLPIDEM TARTRATE 10 MG TABLET PO PRN (21:23)
[2023-03-03] MEDS: LORazepam 2 MG TABLET PO PRN ×3 (04:40→18:23)
[2023-03-03] MEDS: GABAPENTIN 400 MG CAPSULE PO SCH ×3 (05:56→21:25)
[2023-03-03] MEDS: FERROUS SULFATE 325 MG EC TABLET PO SCH (06:35)
[2023-03-03] MEDS: ASPIRIN 81 MG CHEWABLE TABLET PO SCH (09:01)
[2023-03-03] MEDS: LevETIRAcetam 500 MG TABLET PO SCH ×2 (09:02→16:42)
[2023-03-03] MEDS: FOLIC ACID 1 MG TABLET PO SCH (09:02)
[2023-03-03] MEDS: ATORVASTATIN CALCIUM 40 MG TABLET PO SCH (09:02)
[2023-03-03] MEDS: SERTRALINE HCL 100 MG TABLET PO SCH (09:03)
[2023-03-03] MEDS: PANTOPRAZOLE SODIUM 40 MG DR TABLET PO SCH ×2 (09:03→16:42)
[2023-03-03] MEDS: CLOPIDOGREL BISULFATE 75 MG TABLET PO SCH (09:03)
[2023-03-03] MEDS: NYSTATIN 15 GM POWDER BOTTLE TP SCH (09:04)
[2023-03-03 20:19] VITALS: BP 138/86; PULSE 64; RESP 18; TEMP 97.6; O2SAT 98
[2023-03-03] MEDS ORDERED: TraZODone HCL 100 MG TABLET PO SCH (21:00)
[2023-03-03] MEDS: ZOLPIDEM TARTRATE 10 MG TABLET PO PRN (21:26)
[2023-03-04] MEDS: GABAPENTIN 400 MG CAPSULE PO SCH ×3 (06:17→21:58)
[2023-03-04] MEDS: FERROUS SULFATE 325 MG EC TABLET PO SCH (06:43)
[2023-03-04] MEDS: SERTRALINE HCL 100 MG TABLET PO SCH (09:55)
[2023-03-04] MEDS: PANTOPRAZOLE SODIUM 40 MG DR TABLET PO SCH ×2 (09:55→16:14)
[2023-03-04] MEDS: FOLIC ACID 1 MG TABLET PO SCH (09:55)
[2023-03-04] MEDS: CLOPIDOGREL BISULFATE 75 MG TABLET PO SCH (09:55)
[2023-03-04] MEDS: ASPIRIN 81 MG CHEWABLE TABLET PO SCH (09:55)
[2023-03-04] MEDS: LevETIRAcetam 500 MG TABLET PO SCH ×2 (09:58→16:14)
[2023-03-04] MEDS: ATORVASTATIN CALCIUM 40 MG TABLET PO SCH (09:58)
[2023-03-04] MEDS: NYSTATIN 15 GM POWDER BOTTLE TP SCH (10:00)
[2023-03-04 12:34] VITALS: BP 112/61; PULSE 60; RESP 16; TEMP 97.8; O2SAT 99
[2023-03-04] MEDS: LORazepam 2 MG TABLET PO PRN ×2 (12:36→19:28)
[2023-03-04 13:27] VITALS: BP 124/77; PULSE 66; RESP 18; O2SAT 98
[2023-03-04] MEDS: TraMADol HCL 50 MG TABLET PO PRN (13:29)
[2023-03-04 20:06] VITALS: RESP 18
[2023-03-04] MEDS: TraZODone HCL 100 MG TABLET PO SCH (20:37)
[2023-03-04] MEDS: ZOLPIDEM TARTRATE 10 MG TABLET PO PRN (22:02)
[2023-03-05] MEDS: FERROUS SULFATE 325 MG EC TABLET PO SCH (06:39)
[2023-03-05] MEDS: GABAPENTIN 400 MG CAPSULE PO SCH ×3 (06:39→21:56)
[2023-03-05] MEDS: SERTRALINE HCL 100 MG TABLET PO SCH (08:54)
[2023-03-05] MEDS: CLOPIDOGREL BISULFATE 75 MG TABLET PO SCH (08:54)
[2023-03-05] MEDS: ASPIRIN 81 MG CHEWABLE TABLET PO SCH (08:54)
[2023-03-05] MEDS: ATORVASTATIN CALCIUM 40 MG TABLET PO SCH (08:54)
[2023-03-05] MEDS: FOLIC ACID 1 MG TABLET PO SCH (08:54)
[2023-03-05] MEDS: LevETIRAcetam 500 MG TABLET PO SCH ×2 (08:54→16:11)
[2023-03-05] MEDS: PANTOPRAZOLE SODIUM 40 MG DR TABLET PO SCH ×2 (08:54→16:11)
[2023-03-05 08:59] VITALS: BP 122/82; PULSE 78; RESP 18; TEMP 97.5
[2023-03-05] MEDS: TraMADol HCL 50 MG TABLET PO PRN (08:59)
[2023-03-05] MEDS: NYSTATIN 15 GM POWDER BOTTLE TP SCH (09:23)
[2023-03-05] MEDS: LORazepam 2 MG TABLET PO PRN ×3 (12:12→20:19)
[2023-03-05] MEDS: TraZODone HCL 100 MG TABLET PO SCH (20:19)
[2023-03-05 21:20] VITALS: RESP 18
[2023-03-05] MEDS: ZOLPIDEM TARTRATE 10 MG TABLET PO PRN (21:51)
[2023-03-06] VITALS (7 sets, daily range): BP systolic 114–150; BP diastolic 65–84; PULSE 66–80; RESP 18; TEMP 97.5–98.1; O2SAT 97–98
[2023-03-06] MEDS: GABAPENTIN 400 MG CAPSULE PO SCH ×3 (06:33→21:35)
[2023-03-06] MEDS: FERROUS SULFATE 325 MG EC TABLET PO SCH (06:33)
[2023-03-06] MEDS: FOLIC ACID 1 MG TABLET PO SCH (09:32)
[2023-03-06] MEDS: PANTOPRAZOLE SODIUM 40 MG DR TABLET PO SCH ×2 (09:32→16:33)
[2023-03-06] MEDS: LevETIRAcetam 500 MG TABLET PO SCH ×2 (09:33→16:33)
[2023-03-06] MEDS: CLOPIDOGREL BISULFATE 75 MG TABLET PO SCH (09:33)
[2023-03-06] MEDS: SERTRALINE HCL 100 MG TABLET PO SCH (09:33)
[2023-03-06] MEDS: ATORVASTATIN CALCIUM 40 MG TABLET PO SCH (09:33)
[2023-03-06] MEDS: ASPIRIN 81 MG CHEWABLE TABLET PO SCH (09:33)
[2023-03-06] MEDS: NYSTATIN 15 GM POWDER BOTTLE TP SCH (10:02)
[2023-03-06] MEDS: TraMADol HCL 50 MG TABLET PO PRN (11:02)
[2023-03-06] MEDS: LORazepam 2 MG TABLET PO PRN ×2 (13:04→20:58)
[2023-03-06 17:33] LABS: ANION GAP 7 mmol/L (8-16); CALCIUM, TOTAL 9.4 mg/dL (8.8-10.5); CARBON DIOXIDE 31 mmol/L (22-29); CHLORIDE 103 mmol/L (98-107); CREATININE 1.18 mg/dL (0.60-1.30); GLOMERULAR FILTR. RATE CALC > 60 mL/min (>60); GLUCOSE,RANDOM 103 mg/dL (70-110); POTASSIUM 4.1 mmol/L (3.5-5.1); SODIUM SERUM 141 mmol/L (136-145); UREA NITROGEN, BLOOD 23 mg/dL (7-18)
[2023-03-06] MEDS: TraZODone HCL 100 MG TABLET PO SCH (20:58)
[2023-03-06] MEDS: ZOLPIDEM TARTRATE 10 MG TABLET PO PRN (21:35)
[2023-03-06] MEDS: IBUPROFEN 400 MG TABLET PO PRN (22:57)
[2023-03-07] MEDS: GABAPENTIN 400 MG CAPSULE PO SCH ×3 (06:38→21:36)
[2023-03-07] MEDS: FERROUS SULFATE 325 MG EC TABLET PO SCH (06:38)
[2023-03-07] MEDS: PANTOPRAZOLE SODIUM 40 MG DR TABLET PO SCH ×2 (08:22→16:58)
[2023-03-07] MEDS: FOLIC ACID 1 MG TABLET PO SCH (08:22)
[2023-03-07] MEDS: ATORVASTATIN CALCIUM 40 MG TABLET PO SCH (08:22)
[2023-03-07] MEDS: CLOPIDOGREL BISULFATE 75 MG TABLET PO SCH (08:22)
[2023-03-07] MEDS: SERTRALINE HCL 100 MG TABLET PO SCH (08:22)
[2023-03-07] MEDS: LevETIRAcetam 500 MG TABLET PO SCH ×2 (08:22→16:58)
[2023-03-07] MEDS: NYSTATIN 15 GM POWDER BOTTLE TP SCH (08:23)
[2023-03-07] MEDS: ASPIRIN 81 MG CHEWABLE TABLET PO SCH (08:23)
[2023-03-07 08:43] VITALS: BP 161/85; PULSE 64; RESP 17; TEMP 98.3; O2SAT 95
[2023-03-07 12:38] VITALS: BP 117/69; PULSE 60; RESP 18
[2023-03-07] MEDS: TraMADol HCL 50 MG TABLET PO PRN (12:40)
[2023-03-07 13:40] VITALS: RESP 18
[2023-03-07] MEDS: LORazepam 2 MG TABLET PO PRN ×2 (14:08→20:48)
[2023-03-07 20:24] VITALS: BP 124/65; PULSE 62; RESP 18; TEMP 97.2; O2SAT 96
[2023-03-07] MEDS: TraZODone HCL 100 MG TABLET PO SCH (20:49)
[2023-03-07] MEDS: ZOLPIDEM TARTRATE 10 MG TABLET PO PRN (21:35)
[2023-03-08] MEDS: GABAPENTIN 400 MG CAPSULE PO SCH ×3 (06:33→21:56)
[2023-03-08] MEDS: FERROUS SULFATE 325 MG EC TABLET PO SCH (06:35)
[2023-03-08] MEDS: LevETIRAcetam 500 MG TABLET PO SCH ×2 (08:03→16:40)
[2023-03-08] MEDS: ASPIRIN 81 MG CHEWABLE TABLET PO SCH (08:03)
[2023-03-08] MEDS: LORazepam 2 MG TABLET PO PRN (08:03)
[2023-03-08] MEDS: QUEtiapine FUMARATE 100 MG TABLET PO PRN (08:03)
[2023-03-08] MEDS: CLOPIDOGREL BISULFATE 75 MG TABLET PO SCH (08:03)
[2023-03-08] MEDS: ATORVASTATIN CALCIUM 40 MG TABLET PO SCH (08:03)
[2023-03-08] MEDS: FOLIC ACID 1 MG TABLET PO SCH (08:04)
[2023-03-08] MEDS: PANTOPRAZOLE SODIUM 40 MG DR TABLET PO SCH ×2 (08:05→16:40)
[2023-03-08] MEDS: SERTRALINE HCL 100 MG TABLET PO SCH (08:05)
[2023-03-08] MEDS: NYSTATIN 15 GM POWDER BOTTLE TP SCH (08:05)
[2023-03-08 08:27] VITALS: BP 132/87; PULSE 88; RESP 18; TEMP 97.6; O2SAT 96
[2023-03-08 20:36] VITALS: RESP 18
[2023-03-08] MEDS: TraZODone HCL 100 MG TABLET PO SCH (21:07)
[2023-03-08] MEDS: ZOLPIDEM TARTRATE 10 MG TABLET PO PRN (21:38)
[2023-03-09] MEDS: GABAPENTIN 400 MG CAPSULE PO SCH ×3 (06:38→21:11)
[2023-03-09 06:54] LABS: BASOPHILS % (AUTO) 0.5 % (0.0-2.0); HEMATOCRIT 36.8 % (41-53); HEMOGLOBIN 12.6 g/dL (13.5-17.5); LYMPHOCYTES # (AUTO) 1.5 K/uL (1.0-4.8); LYMPHOCYTES % (AUTO) 20.7 % (22.0-44.0); MEAN CORPUSCULAR HEMOGLOBIN 31.5 pg (26.0-34.0); MEAN CORPUSCULAR HGB CONC 34.4 G/dL (31.0-37.0); MEAN CORPUSCULAR VOLUME 92 fL (80-100); MONOCYTES # (AUTO) 0.4 K/uL (0.1-1.0); NEUTROPHILS # (AUTO) 4.9 K/uL (1.8-7.7); NEUTROPHILS % (AUTO) 68.8 % (40.0-70.0); PLATELET COUNT (AUTO) 225 K/uL (150-450); RED BLOOD CELL COUNT(AUTO) 4.01 MIL/uL (4.50-5.90); RED CELL DISTRIBUTION WIDTH 14.8 % (11.5-14.5); WHITE BLOOD COUNT (AUTO) 7.1 K/uL (4.5-11.0)
[2023-03-09] MEDS: FERROUS SULFATE 325 MG EC TABLET PO SCH (06:54)
[2023-03-09 07:08] LABS: TROPONIN I-HIGH SENSITIVITY 20 ng/L (<76)
[2023-03-09 07:13] LABS: B-TYPE NATRIURETIC PEPTIDE 131 pg/mL (0-100)
[2023-03-09 07:35] LABS: ALANINE AMINOTRANSFERASE 33 U/L (12-78); ALBUMIN 3.5 g/dL (3.4-5.0); ALKALINE PHOSPHATASE 105 U/L (46-116); ANION GAP 6 mmol/L (8-16); ASPARTATE AMINOTRANSFERASE 22 U/L (15-37); BILIRUBIN,TOTAL 0.6 mg/dL (0.1-1.0); CALCIUM, TOTAL 9.6 mg/dL (8.8-10.5); CARBON DIOXIDE 31 mmol/L (22-29); CHLORIDE 103 mmol/L (98-107); CREATINE KINASE, TOTAL ONLY 125 U/L (39-308); CREATININE 1.12 mg/dL (0.60-1.30); GLOMERULAR FILTR. RATE CALC > 60 mL/min (>60); GLUCOSE,RANDOM 99 mg/dL (70-110); POTASSIUM 3.9 mmol/L (3.5-5.1); SODIUM SERUM 140 mmol/L (136-145); TOTAL PROTEIN, SERUM 6.6 g/dL (6.4-8.2); UREA NITROGEN, BLOOD 23 mg/dL (7-18)
[2023-03-09 10:13] VITALS: BP 138/70; PULSE 72; RESP 18; TEMP 98; O2SAT 96
[2023-03-09] MEDS: SERTRALINE HCL 100 MG TABLET PO SCH (11:13)
[2023-03-09] MEDS: LevETIRAcetam 500 MG TABLET PO SCH ×2 (11:13→16:52)
[2023-03-09] MEDS: CLOPIDOGREL BISULFATE 75 MG TABLET PO SCH (11:13)
[2023-03-09] MEDS: FOLIC ACID 1 MG TABLET PO SCH (11:13)
[2023-03-09] MEDS: ASPIRIN 81 MG CHEWABLE TABLET PO SCH (11:13)
[2023-03-09] MEDS: PANTOPRAZOLE SODIUM 40 MG DR TABLET PO SCH ×2 (11:14→16:52)
[2023-03-09] MEDS: ATORVASTATIN CALCIUM 40 MG TABLET PO SCH (11:14)
[2023-03-09] MEDS: NYSTATIN 15 GM POWDER BOTTLE TP SCH (11:15)
[2023-03-09 16:48] LABS: APPEARANCE,URINE CLEAR (CLEAR); BILIRUBIN,URINE NEGATIVE (NEGATIVE); COLOR,URINE YELLOW (YELLOW); GLUCOSE, URINE (UA) NEGATIVE (NEGATIVE); KETONES,URINE NEGATIVE (NEGATIVE); LEUKOCYTE ESTERASE ,URINE TRACE (NEGATIVE); NITRATE,URINE NEGATIVE (NEGATIVE); OCCULT BLOOD,URINE NEGATIVE (NEGATIVE); PROTEIN,URINE TRACE mg/dL (NEGATIVE)
[2023-03-09 17:02] LABS: BACTERIA,URINE Moderate /HPF (None Seen); RBC,URINE 0-2 /HPF (0-2); SQUAMOUS EPITHELIAL CELL,UR Rare /LPF (None Seen)
[2023-03-09] MEDS: TraZODone HCL 100 MG TABLET PO SCH (21:02)
[2023-03-09 21:17] VITALS: BP 127/77; PULSE 60; RESP 18; TEMP 98.4; O2SAT 96
[2023-03-10] MEDS: GABAPENTIN 400 MG CAPSULE PO SCH ×3 (06:26→22:02)
[2023-03-10] MEDS: FERROUS SULFATE 325 MG EC TABLET PO SCH (06:51)
[2023-03-10] MEDS: TraMADol HCL 50 MG TABLET PO PRN (08:02)
[2023-03-10] MEDS: PANTOPRAZOLE SODIUM 40 MG DR TABLET PO SCH ×2 (08:02→16:08)
[2023-03-10] MEDS: LORazepam 2 MG TABLET PO PRN (08:02)
[2023-03-10] MEDS: CEPHALEXIN MONOHYDRATE 250 MG CAPSULE PO SCH ×3 (08:02→16:08)
[2023-03-10] MEDS: ASPIRIN 81 MG CHEWABLE TABLET PO SCH (08:03)
[2023-03-10] MEDS: CLOPIDOGREL BISULFATE 75 MG TABLET PO SCH (08:03)
[2023-03-10] MEDS: ATORVASTATIN CALCIUM 40 MG TABLET PO SCH (08:03)
[2023-03-10] MEDS: LevETIRAcetam 500 MG TABLET PO SCH ×2 (08:03→16:08)
[2023-03-10] MEDS: SERTRALINE HCL 100 MG TABLET PO SCH (08:03)
[2023-03-10] MEDS: FOLIC ACID 1 MG TABLET PO SCH (08:03)
[2023-03-10 08:11] VITALS: BP 109/58; PULSE 68; RESP 19; TEMP 98.1; O2SAT 98
[2023-03-10] MEDS: NYSTATIN 15 GM POWDER BOTTLE TP SCH (11:52)
[2023-03-10] MEDS ORDERED: TraMADol HCL 50 MG TABLET PO PRN (15:00)
[2023-03-10 20:30] VITALS: BP 136/76; PULSE 61; RESP 18; TEMP 98; O2SAT 95
[2023-03-10] MEDS: TraZODone HCL 100 MG TABLET PO SCH (20:33)
[2023-03-10] MEDS: IBUPROFEN 400 MG TABLET PO PRN (20:33)
[2023-03-10] MEDS: ZOLPIDEM TARTRATE 10 MG TABLET PO PRN (22:02)
[2023-03-11] MEDS: GABAPENTIN 400 MG CAPSULE PO SCH ×2 (06:07→14:00)
[2023-03-11] MEDS: FERROUS SULFATE 325 MG EC TABLET PO SCH (06:56)
[2023-03-11 08:54] VITALS: BP 124/73; PULSE 63; RESP 18; TEMP 97.5; O2SAT 96
[2023-03-11] MEDS: SERTRALINE HCL 100 MG TABLET PO SCH (09:13)
[2023-03-11] MEDS: CEPHALEXIN MONOHYDRATE 250 MG CAPSULE PO SCH ×2 (09:14→13:00)
[2023-03-11] MEDS: FOLIC ACID 1 MG TABLET PO SCH (09:14)
[2023-03-11] MEDS: CLOPIDOGREL BISULFATE 75 MG TABLET PO SCH (09:14)
[2023-03-11] MEDS: LevETIRAcetam 500 MG TABLET PO SCH (09:14)
[2023-03-11] MEDS: ASPIRIN 81 MG CHEWABLE TABLET PO SCH (09:14)
[2023-03-11] MEDS: ATORVASTATIN CALCIUM 40 MG TABLET PO SCH (09:15)
[2023-03-11] MEDS: NYSTATIN 15 GM POWDER BOTTLE TP SCH (09:16)
[2023-03-11] MEDS: PANTOPRAZOLE SODIUM 40 MG DR TABLET PO SCH (09:16)
== END 2023-03-11 10:30 | DRG 885 ==
LOC: EMS 08:53 → 3EC 13:38
PROVIDERS: ADMIT Psychiatry & Neurology Psychiatry; ATTEND Psychiatry & Neurology Psychiatry
PROC: GZHZZZZ Group Psychotherapy (ICD-10-PCS; principal; 2022-12-20)
DX: F33.2 Major depressive disorder, recurrent severe without psychotic features (principal); R45.851 Suicidal ideations; N39.0 Urinary tract infection, site not specified; Z59.00 Homelessness unspecified; I10 Essential (primary) hypertension; G40.909 Epilepsy, unspecified, not intractable, without status epilepticus; E78.5 Hyperlipidemia, unspecified; D50.9 Iron deficiency anemia, unspecified; G62.9 Polyneuropathy, unspecified; R07.9 Chest pain, unspecified; F12.90 Cannabis use, unspecified, uncomplicated; F41.9 Anxiety disorder, unspecified; G47.00 Insomnia, unspecified; K21.9 Gastro-esophageal reflux disease without esophagitis; M47.812 Spondylosis without myelopathy or radiculopathy, cervical region; S00.212A Abrasion of left eyelid and periocular area, initial encounter; X78.1XXA Intentional self-harm by knife, initial encounter; Z20.822 Contact with and (suspected) exposure to COVID-19; Y93.89 Activity, other specified; Y92.89 Other specified places as the place of occurrence of the external cause; Y99.8 Other external cause status; Z79.02 Long term (current) use of antithrombotics/antiplatelets; Z79.899 Other long term (current) drug therapy; Z90.3 Acquired absence of stomach [part of]; Z98.1 Arthrodesis status; Z88.5 Allergy status to narcotic agent; Z88.6 Allergy status to analgesic agent; Z79.82 Long term (current) use of aspirin; Z87.11 Personal history of peptic ulcer disease; Z86.73 Personal history of transient ischemic attack (TIA), and cerebral infarction without residual deficits
CPT/HCPCS: 70450; 70486; 71046; 72040; 72125; 80048; 80053; 80061; 80307; 81001; 81002; 81003; 82271; 82550; 83036; 83735; 83880; 84100; 84443; 84484; 85025; 85610; 85730; 87086; 87186; 90715; 93005; 97110; 97112; 97116; 97140; 97162; 97163; 97167; 97168; 97530; 97535; 99285; G0480; J1200; J1630; J2060; J3475; J3490; J7060; Q9967; 36415-L1; 36415-TC

== ENCOUNTER → 2023-04-13 | Outpatient (CLI) | payer MEDICARE, MEDICAID ==
[~2023-04-13] MED LIST changes: -NITR0.4T50 SL; +SERT-158 PO
== END | disposition home or self-care (01) ==
LOC: RADMN 07:59
PROVIDERS: ATTEND Neurological Surgery
DX: M43.02 Spondylolysis, cervical region (principal); M51.44 Schmorl's nodes, thoracic region; M43.22 Fusion of spine, cervical region; M48.03 Spinal stenosis, cervicothoracic region
CPT/HCPCS: 72125; 72128